=== PATIENT | female | born 1945 | race Caucasian/White ===

== ENCOUNTER → 2019-04-14 12:38 | Outpatient (CLI) | payer MEDICARE, BC | END | disposition home or self-care (01) | LOC: D.RT 12:38 | PROVIDERS: ATTEND Internal Medicine Cardiovascular Disease | DX: C34.90 Malignant neoplasm of unspecified part of unspecified bronchus or lung (principal) ==

== ENCOUNTER → 2019-04-16 11:08 | Outpatient (CLI) | payer MEDICARE, BC ==
[2019-04-16 11:48] LABS: HEMATOCRIT 36.5 % (36.0-48.0); HEMOGLOBIN 12.6 g/dL (12-16); MCH 30.1 pg (26.0-34.0); MCHC 34.5 g/dL (31.0-37.0); MCV 87.3 fL (80.0-100.0); MEAN PLATELET VOLUME 8.8 fL (7.4-10.4); RBC 4.18 10x6/uL (4.00-5.40); RDW 13.4 % (11.5-14.5); WBC 6.9 10x3/uL (4.8-10.8)
[2019-04-16 12:04] LABS: ANION GAP 11.6 mmol/L (8-16); BILIRUBIN - TOTAL 0.46 mg/dL (0.2-1.3); CALCIUM 9.6 mg/dL (8.5-10.1); CARBON DIOXIDE 30.9 mmol/L (21.0-32.0); CREATININE - SERUM 2.3 mg/dL (0.6-1.3); POTASSIUM - SERUM 3.5 mmol/L (3.5-5.1); PROTEIN - SERUM 7.8 g/dL (6.4-8.2)
== END | disposition home or self-care (01) ==
LOC: D.US 11:08
PROVIDERS: ATTEND Internal Medicine Cardiovascular Disease
DX: C34.90 Malignant neoplasm of unspecified part of unspecified bronchus or lung (principal); I65.23 Occlusion and stenosis of bilateral carotid arteries; I10 Essential (primary) hypertension

== ENCOUNTER 2019-05-26 07:16 | Day surgery (SDC) | payer MEDICARE, BC ==
[~2019-05-26] VITALS: Ht 162.6 cm; Wt 65.3 kg
[2019-05-26 07:43] LABS: APPEARANCE CLEAR (CLEAR); COLOR YELLOW (YELLOW)
[2019-05-26 07:44] LABS: BILIRUBIN NEGATIVE (NEGATIVE); GLUCOSE NEGATIVE (NEGATIVE); KETONE NEGATIVE (NEGATIVE); NITRITE NEGATIVE (NEGATIVE); PROTEIN NEGATIVE (NEGATIVE); UROBILINOGEN NORMAL (NORMAL)
[2019-05-26 07:46] LABS: HEMATOCRIT 28.5 % (36.0-48.0); HEMOGLOBIN 9.2 g/dL (12-16); MCH 30.4 pg (26.0-34.0); MCHC 32.3 g/dL (31.0-37.0); MCV 94.1 fL (80.0-100.0); MEAN PLATELET VOLUME 8.7 fL (7.4-10.4); RBC 3.03 10x6/uL (4.00-5.40); RDW 15.1 % (11.5-14.5); WBC 4.3 10x3/uL (4.8-10.8)
[2019-05-26 07:51] LABS: ANION GAP 13.4 mmol/L (8-16); CREATININE - SERUM 1.2 mg/dL (0.6-1.3); POTASSIUM - SERUM 4.4 mmol/L (3.5-5.1)
[2019-05-26 07:52] LABS: INR 1.06 (0.85-1.17); PROTIME 13.3 SECONDS (11.6-15.0)
[2019-05-26] MEDS ORDERED: COUMADIN5 MG PO (09:23)
[2019-05-26] MEDS ORDERED: COREG 3.1253.125 MG PO (09:24)
[2019-05-26] MEDS ORDERED: HCTZ25 MG (09:24)
[2019-05-26] MEDS ORDERED: ONDANSETRON ODT8 MG PO (09:25)
[2019-05-26] MEDS ORDERED: PHENERGAN25 M1 PO (09:25)
[2019-05-26] MEDS ORDERED: PROPAFENONE HC150 MG PO (09:25)
[2019-05-26 09:28] VITALS: BP 113/71; Ht 162.6 cm; Wt 65.3 kg
--- NOTE | 2019-05-26 15:10 | NUR ---
1430 PT ON RA O2 SATS 94-95% 1445 IV REMOVED AND INSTRUCTIONS GIVEN. 1500 PT DISCHARGED HOME
--- NOTE | 2019-06-07 10:34 | OP ---
PATIENT NAME: ALESHIA MADRIGAL MEDICAL RECORD: [id number] :47 LOCATION:D.OPS ADMISSION DATE: SURGEON: CHELSEA NEWTON MD DATE OF OPERATION: 05/26/2019 SURGEON: Chelsea Newton MD ANESTHESIA: General, Dr. Golden. OPERATION PERFORMED: Placement of [place] 9.6. PREOPERATIVE DIAGNOSIS: Carcinoma of the lung, receiving neoadjuvant chemotherapy. POSTOPERATIVE DIAGNOSIS: Carcinoma of the lung, receiving neoadjuvant chemotherapy. INDICATION FOR OPERATION: Venous access. FINDINGS AT OPERATION: The venogram demonstrated the catheter in good position at the cavoatrial junction. ESTIMATED BLOOD LOSS: Less than 5 cc. DESCRIPTION OF PROCEDURE: After informed consent, adequate preoperative medication evaluation, the patient was brought to the operating room, placed on the table in the supine position. After induction of general anesthesia and application of appropriate monitoring devices, left chest was prepped and draped in sterile field, utilizing Betadine scrub, alcohol, and Betadine solution. Betadine-impregnated drape was also used. The patient was placed in the Trendelenburg and the left subclavian vein was accessed. An introducer was placed and the catheter placed through the introducer. The catheter was then filled with contrast. It was manipulated into position. A venogram demonstrated good position. The lead was secured with a rubber shod clamp. A counter incision was made over the left anterior chest. Incision was made and dissection carried down the fascia. A pocket was formed. The catheter was then placed through the subcutaneous tunnel to the counter incision. The device was then connected to the catheter, aspirated and flushed appropriately. The port was then sutured to the fascia. The port was then again irrigated, checked with fluoroscopy. Catheter was in good position. The port was then flushed with 3000 units of heparin. The wounds were irrigated. The superior stab wound was closed with 3-0 Monocryl. The instrument count and sponge counts were correct times 2. The counter incision was closed utilizing 3-0 Vicryl on deep subcutaneous tissue, 5-0 subcuticular Monocryl on the skin. Sterile dressings were applied. The patient tolerated the procedure well and was transferred to postanesthesia recovery in satisfactory condition. TRANSINT:[id number] Voice Confirmation ID: [id number] DOCUMENT ID: [id number] OPERATIVE REPORT [id number] BROWN,CHELSEA FLORES MD at 1034 CC: [id number] DICTATION DATE: 05/26/19 1234 SUPERVISOR HOME ENERGY CONSULTANT: 05/26/19 1247 [facility] 05/26/19 [place] [id number] [place] [address]
== END 2019-05-26 15:00 | disposition home or self-care (01) ==
LOC: D.OPS 07:16
PROVIDERS: ATTEND Internal Medicine Cardiovascular Disease
DX: C34.90 Malignant neoplasm of unspecified part of unspecified bronchus or lung (principal)

== ENCOUNTER → 2019-07-15 09:55 | Outpatient (CLI) | payer MEDICARE, BC ==
[2019-05-26 09:28] VITALS: BMI 24.7
[~2019-07-15 09:55] MED LIST: COREG 3.1253.125 MG PO; COUMADIN5 MG PO; HCTZ25 MG; ONDANSETRON ODT8 MG PO; PHENERGAN25 M1 PO; PROPAFENONE HC150 MG PO
== END | disposition home or self-care (01) ==
LOC: D.RT 09:55
PROVIDERS: ATTEND Internal Medicine Cardiovascular Disease
DX: C34.11 Malignant neoplasm of upper lobe, right bronchus or lung (principal)

== ENCOUNTER 2019-07-22 07:54 | Inpatient (IN) | payer MEDICARE, BC ==
[~2019-07-22] VITALS: Ht 162.6 cm; Wt 70.9 kg
--- NOTE | ~2019-07-22 | HEMODYNAMI ---
PATIENT:ALESHIA MADRIGAL MEDICAL RECORD: [id number] : 47 LOCATION:[place] [address] ADMISSION DATE: 07/26/19 Generatedon:08/18/201914:36 Patient name: ALESHIA MADRIGAL Patient #: [id number] SSN: : 1945 Date of study: 08/18/2019 Page: Of Hemodynamic Procedure Report Patient Data Patient Demographics Procedure consent was obtained First Name: ALESHIA Gender: Female Last Name: ROHAN : 1945 [facility] Initial: SATHISH Age: 74 year(s) Patient #: [id number] Race: Unknown Additional ID: [id number] Contact details Address: [address] [place] [address] State: [place] City: [place] Zip code: [address] Admission Admission Data Admission Date: 07/26/2019 Admission Time: 5:00 Room #: [facility] Height (in.): 64 BSA: 1.87 (m2) Height (cm.): 162.56 BMI: 31.07 (kg/m2) Weight (lbs.): 181 Weight (kg.): 82.1 Procedure Procedure Types Cath Procedure Peripheral Cath Diagnostic Procedure Casino Banker Peripheral Procedures Miscellaneous Chest Tube Placement Procedure Description Procedure Date Procedure Date: 08/18/2019 Procedure Start Time: 14:20 Procedure Staff Name Function Erinn Vora RT Palliative Senior Np Misael Boyce RT Scrub Hilton Sanchez MD Performing Physician hSanta Wei RN Nurse Procedure Data Cath Procedure Fluoroscopy Diagnostic fluoroscopy Total fluoroscopy Time: 0.4 time: 0.4 min min Diagnostic fluoroscopy Total fluoroscopy dose: 2 dose: 2 mGy mGy Hemodynamics Rest BSA: 1.87 (m2) O2 Consumption: Estimated: 254.32 (ml/min) O2 Consumption indexed : Estimated:136 (ml/min/m) Pre Cath Intra NCS Post Cath Procedure Log Time Note 13:11:00 Patient Height : 64 inches 13:11:05 Patient Weight : 181 lbs 13:11:34 Use device set IR Diagnostic 13:11:41 Tegaderm 4 x 4 ([id number]) opened to sterile field. 13:11:42 Sterile Angiographic Pack opened to sterile field. 13:11:44 Bag Decanter (2001S) opened to sterile field. 13:57:37 Time tracking: Regular hours (M-F 7:00 - 5:00) 13:57:45 Patient received from CVICU to IR On ventilator. Tansferred to table in Supine position. 14:17:36 Signed procedure consent form obtained from verbally. 14:17:44 H&P Date Dictated: 08/18/2019 Within 30 days and on chart.. 14:17:51 Family unavailable. 14:18:45 Right chest area was prepped with betadine and draped in sterile fashio n 14:18:57 - 14:18:59 Physician arrived 14:19:01 --------ALL STOP TIME OUT------ 14:19:02 Final Timeout: patient, procedure, and site verified with staff and physician. All members of the team are in agreement. 14:20:04 Fire Safety Assessment: B--The operative or invasive procedure is being performed above the xiphoid process or in the oropharynx., C--Open oxygen or nitrous oxide is being used. 14:20:35 Procedure started. 14:20:36 Full Disclosure recording started 14:20:42 Local anesthetic to Chest area with Lidocaine 1% by Hilton Sanchez MD.INITIAL ACCESS ONLY 14:23:32 Abscession 14FR drainage catheter ([id number]) opened to sterile field. 14:23:59 ROADRUNNER .035 145 glide wire ([id number]) opened to sterile field. 14:24:17 STOPCOCK 3-Way Large Bore ([id number]) opened to sterile field. 14:30:02 Procedure ended.(Physican Out) 14:30:19 Fluoroscopy time 00.40 minutes. 14:30:31 Fluoroscopy dose: 2 mGy 14:30:31 Flurop Dose total: 2 14:31:26 Patient transfered to CVICU with Bed. 14:31:49 Full Disclosure recording stopped Device Usage Item Name Manufacture Quantity Catalog Hospital Part Current Minima l Lot# / Number Charge Number Stock Stock Serial# Code Tegaderm 4 x 3M 1 [id number] [id number] [id number] 5 4 (1626W) Sterile Cardinal 1 [id number] 5 Angiographic Health Pack Bag Decanter Microtek 1 2001S 206999 12178 [id number] 5 (2001S) [employer] Inc[employer] Abscession Angiodynamics 1 [id number] 067672 325454 775599 5 14FR drainage catheter ([id number]) [facility] 1 [id number] 517151 074043 5 .035 145 glide wire (C71789) [facility] 1 [id number] 1822 894158 5 [id number] 3-Way Large Bore ([id number]) Signature Audit [place] Stage Time Signature Unsigned Intra-Procedure 08/18/2019 Erinn Douglas [facility] RT 2:31:41 PM RT(R) (R) (CV) 08/18/2019 2:35:39 PM Intra-Procedure 08/18/2019 Erinn Vora 2:36:47 PM RT(R) [facility] [address] [place] [address]
[2019-07-22] MEDS ORDERED: CLARITIN 10 MG10 MG PO (08:31)
[2019-07-22] MEDS ORDERED: IMODIUM2 MG PO (08:32)
[2019-07-22] MEDS ORDERED: CYCLOBENZAPRINE5 MG PO (08:33)
[2019-07-22] MEDS ORDERED: ULTRAM50 MG PO (08:34)
[2019-07-22] MEDS ORDERED: EMLA CREAM 30 G30 G1 TOPICAL (08:35)
[2019-07-22 09:43] LABS: HEMATOCRIT 37.3 % (36.0-48.0); HEMOGLOBIN 12.1 g/dL (12-16); MCH 32.8 pg (26.0-34.0); MCHC 32.4 g/dL (31.0-37.0); MCV 101.1 fL (80.0-100.0); MEAN PLATELET VOLUME 8.5 fL (7.4-10.4); RBC 3.69 10x6/uL (4.00-5.40); WBC 4.3 10x3/uL (4.8-10.8)
[2019-07-22 09:55] LABS: APTT 31.6 SECONDS (22.8-39.4); INR 1.11 (0.85-1.17); PROTIME 13.8 SECONDS (11.6-15.0)
[2019-07-22 09:58] LABS: ALBUMIN 3.8 g/dL (3.4-5.0); BILIRUBIN - TOTAL 0.37 mg/dL (0.2-1.3); CALCIUM 9.6 mg/dL (8.5-10.1); CARBON DIOXIDE 25.4 mmol/L (21.0-32.0); CREATININE - SERUM 1.1 mg/dL (0.6-1.3); POTASSIUM - SERUM 4.4 mmol/L (3.5-5.1); PROTEIN - SERUM 7.4 g/dL (6.4-8.2)
[2019-07-22 10:19] LABS: APPEARANCE CLEAR (CLEAR); BILIRUBIN NEGATIVE (NEGATIVE); COLOR YELLOW (YELLOW); GLUCOSE NEGATIVE (NEGATIVE); KETONE NEGATIVE (NEGATIVE); NITRITE NEGATIVE (NEGATIVE); PROTEIN NEGATIVE (NEGATIVE); SPECIFIC GRAVITY 1.015 (1.005-1.020); UROBILINOGEN NORMAL (NORMAL)
[2019-07-26] VITALS (52 sets, daily range): BP systolic 114–190; BP diastolic 53–555; BMI 24.1; BMI 25.3
--- NOTE | 2019-07-26 16:15 | NUR ---
1158 PT RECIEVED TO ROOM ALERT, CONFUSED, REOREINTED NEEDED SEE IV FLOWSHEET AND ADMISSION ASSESSMENT RYTHMOL GIVEN PER DR NEWTON SPOKE WITH DR STILES ABOUT CARDIZIEM STATED TO CONTINUE THROUGH NIGHT, DR NEWTON AWARE AND IN AGREEMENT REPOSITIONED HOURLY AND ENCOURAGED TO USE IS, PULLS 500-750 FAMILY HERE FOR VISITATION, DENIES ALL QUESTIONS
--- NOTE | 2019-07-26 19:00 | NUR ---
REC'D TO CARE, PT AWAKENS TO NAME, ORIENTED. DR. CALLES IN TO SEE PT. IVF INFUSING TO R DLSC, DSG C/D/I, WILL TITRATE GTTS PER MD ORDERS - SEE FLOWSHEET. R CT X 2 NOTED, TO 20CM SXN, NO AIR LEAK NOTED. CRITICORE SOURAV PATENT. 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 WILL CONT Q1H TURN/COUGH/DB PER MD ORDERS AND I.S. ALARMS ON, C/L IN REACH.
--- NOTE | 2019-07-26 20:30 | NUR ---
FAMILY AT BS VISITING, NOTED DECREASE IN POX TO 85%, R.T. AT BS, FIO2 TIRATED, PT ENCOURAGED TO DB AND COUGH. POX IMPROVING TO 90%, THEN 93% BY 2049. WILL CONT TO TITATE FIO2 PER MD ORDERS.
--- NOTE | 2019-07-26 21:25 | NUR ---
STATUS REPORT CALLED TO DR. NEWTON, NOTIFIED OF TELMA AND NIBP DIFFERENCE. ORDER TO TITRATE NITRO GTT USING NIBP REC'D.
--- NOTE | 2019-07-26 23:05 | NUR ---
REASSESSMENT PER FLOWSHEET, NO ACUTE CHANGES. ABGS WNL. PT AWAKENS EASILY, GOOD EFFORT ON I.S. CONT CURRENT POC. ALARMS ON AND C/L IN REACH.
[2019-07-27] VITALS (55 sets, daily range): BP systolic 97–159; BP diastolic 52–90; BMI 25.1
--- NOTE | 2019-07-27 01:00 | NUR ---
PT AWAKENS EASILY. ORAL CARE PROVIDED. PT GIVEN FEW ICE CHIPS PER REQUEST. GOOD EFFORT ON I.S./COUGH. C/L IN REACH.
--- NOTE | 2019-07-27 03:11 | NUR ---
REASSESSMENT PER FLOWSHEET. NO ACUTE CHANGES. PT DOING I.S. INDEPENDENTLY, GOOD COUGH NOTED. VSS.
--- NOTE | 2019-07-27 06:15 | NUR ---
COMPLETE BATH AND LINEN CHANGE DONE. PT ASSISTED WITH BATHING AND TURNING.
--- NOTE | 2019-07-27 06:41 | NUR ---
PT C/O ITCHING AFTER BATH AT ABD.. SKIN RINSED WITH CLEAN WASH CLOTH AND DRIED. PT REPORTED RELIEF WITHIN A FEW MINUTES.
[2019-07-27 06:47] LABS: HEMATOCRIT 31.8 % (36.0-48.0); HEMOGLOBIN 10.1 g/dL (12-16); MCH 32.2 pg (26.0-34.0); MCHC 31.8 g/dL (31.0-37.0); MCV 101.3 fL (80.0-100.0); MEAN PLATELET VOLUME 8.4 fL (7.4-10.4); RBC 3.14 10x6/uL (4.00-5.40); RDW 22.6 % (11.5-14.5); WBC 10.3 10x3/uL (4.8-10.8)
--- NOTE | 2019-07-27 07:00 | NUR ---
REPORT RECIEVED FROM THE OFF GOING RN. SEE ASSESSMENT IN THE PTS FLOW SHEET. PT SITTING IN BED. VSS. CVL NOTED. SEE IV GTT IN FLOW SHEET. CT X2 TO R LATERAL SIDE. CT TO 20 CM OF SUCTION. NO AIR LEAK NOTED. FC NOTED WITH CLEAR, YELLOW URINE. LEFT RADIAL TELMA NOTED. WAS NOTIFIED FROM PM NURSE TO USE NIPB PRESSURE. PT INSTRUCTED TO USE IS 10X'S/H. PT PULLS ABOUT 500 ON HER IS. WEAK COUGH NOTED. CALL LIGHT IN REACH. WILL CONT POC.
[2019-07-27 07:09] LABS: ANION GAP 12.7 mmol/L (8-16); BILIRUBIN - TOTAL 0.52 mg/dL (0.2-1.3); CALCIUM 8.8 mg/dL (8.5-10.1); CARBON DIOXIDE 26.5 mmol/L (21.0-32.0); CREATININE - SERUM 0.9 mg/dL (0.6-1.3); POTASSIUM - SERUM 4.2 mmol/L (3.5-5.1); PROTEIN - SERUM 6.6 g/dL (6.4-8.2)
--- NOTE | 2019-07-27 09:49 | NUR ---
PHYSICAL THEARPY CONSULTED PER DR NEWTON. PT ASSISTED OOB AND INTO THE BEDSIDE CHAIR PER DR NEWTON. PT TOLERATED WELL. VSS. WILLC ONT POC.
--- NOTE | 2019-07-27 10:35 | NUR ---
DR NEWTON AT THE PTS BEDSIDE. JACK HOLLIS, JACK MONTOYA AND JACK DANIEL.
--- NOTE | 2019-07-27 12:00 | NUR ---
RECEIVED BEDSIDE REPORT ON PATIENT AND ASSUMED CARE. PATIENT SITTING UP IN BEDSIDE CHAIR, VSS. LEFT RADIAL ART LINE WITH GOOD WAVEFORM, RIGHT SUBCLAVIAN CVL INFUSING WITHOUT DIFFICULTY. ALERT AND ORIENTED X 4.
--- NOTE | 2019-07-27 12:46 | NUR ---
PATIENT GIVEN LUNCH TRAY.
--- NOTE | 2019-07-27 13:57 | NUR ---
ART LINE LEFT RADIAL DISCONTINUED PER ORDER. DIRECT PRESSURE X 4 MINUTES WITH 2X2 AND TEGADERM DRESSING. NO HEMATOMA OR BLEEDING NOTED. IV 20 TO LEFT FA D/C'D DRESSING C/D/I.
--- NOTE | 2019-07-27 15:00 | NUR ---
REASSESSMENT COMPLETE DONE SEE FLOW SHEET.
--- NOTE | 2019-07-27 16:52 | NUR ---
DR NEWTON INFORMED OF PT BP. BP UNDER 160 OK. WILL COTNINUE TO MONITOR.
--- NOTE | 2019-07-27 17:14 | MORECARE ---
CASE MANAGEMENT DISCHARGE SUMMARY PATIENT: ALESHIA MADRIGAL UNIT: [id number] ADM DATE: 07/26/19 AGE: 74 : 46 SEX: F ROOM/BED: [facility] AUTHOR: JEFFERY BROWNE PHYSICIAN: REFERRING PHYSICIAN: CHELSEA NEWTON MD DATE OF SERVICE: 07/27/19 Discharge Plan Patient Name: ALESHIA MADRIGAL [facility] [facility] 1945 Planned Disposition: Home Anticipated Discharge Date: Discharge Date: Expected LOS: Initial Reviewer: [email or web address] Initial Review Date: 07/26/2019 Generated: 07/27/19 6:14 pm Patient Name: ALESHIA MADRIGAL Page 19809 at 1714 All edits/amendments must be made on the electronic document DICTATION DATE: 07/27/191713 FAMILY CONSUMER SCIENTIST: KEVIN 07/27/191713 RPT#: [id number] DC DATE: STATUS: ADM IN [facility] [address] [place] [address] END OF REPORT
--- NOTE | 2019-07-27 19:15 | NUR ---
REC'D TO CARE, BEDSIDE REPORT DONE. PT ASSISTED BACK TO BED, GAIT STEADY. R CT X 2 NOTED TO 20CM SXN, DSG C/D/I. CRITICORE SOURAV PATENT. IVFS INFUSING TO R DLSC, DSG C/D/I. 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 WILL CONT TURN/COUGH/DB AND I.S. PER ORDERS - PT VERBALIZES UNDERSTANDING. VSS. C/L IN REACH. FRESH WATER PROVIDED.
--- NOTE | 2019-07-27 21:58 | NUR ---
ADMIN PO MEDS PER ORDERS. PT UP IN BED, SPLINTING CHEST WITH COUGH.
--- NOTE | 2019-07-27 23:15 | NUR ---
REASSESSMENT PER FLOWSHEET, NO ACUTE CHANGES. PT AWAKENS EASILY, NO SIGN OF DISTRESS. GOOD EFFORT ON I.S. AND COUGH. VSS. DENIES NEEDS.
--- NOTE | 2019-07-27 23:40 | NUR ---
PT HR 174, UCAF. PT AWAKENS EASILY, REPORTS HX OF FIB AT HIGH RATES. B/P 97/58, OTHERWISE ASYMPTOMATIC. 2345 - DR. SMITH NOTIFIED OF HR AND B/P. NEW ORDERS REC'D. SEE EMAR.
[2019-07-28] VITALS (40 sets, daily range): BP systolic 92–134; BP diastolic 41–86
--- NOTE | 2019-07-28 01:03 | NUR ---
HR STILL 150-170S. DR. SHRESTHA NOTIFIED - NEW ORDERS REC'D, ORDERS OK'D WITH DR. NEWTON.
--- NOTE | 2019-07-28 02:40 | NUR ---
CM - ST AT 102 WITH OCC PVC NOTED.
--- NOTE | 2019-07-28 03:20 | NUR ---
REASSESSMENT PER FLOWSHEET. PT AWAKENS EASILY, DENIES PAIN OR SOB. CM ST 101 WITH OCC PVC NOTED. GOOD COUGH NOTED. FRESH WATER PROVIDED. C/L IN REACH.
--- NOTE | 2019-07-28 04:00 | NUR ---
PCXR DONE. CM - ST WITH OCC PAC NOTED.
[2019-07-28 06:08] LABS: ALBUMIN 2.8 g/dL (3.4-5.0); ANION GAP 12.4 mmol/L (8-16); BILIRUBIN - TOTAL 0.45 mg/dL (0.2-1.3); CALCIUM 8.9 mg/dL (8.5-10.1); CREATININE - SERUM 0.9 mg/dL (0.6-1.3); MAGNESIUM - SERUM 1.6 mg/dL (1.8-2.4); PHOSPHOROUS 2.5 mg/dL (2.5-4.9); POTASSIUM - SERUM 4.4 mmol/L (3.5-5.1); PROTEIN - SERUM 6.6 g/dL (6.4-8.2)
[2019-07-28 06:14] LABS: BASOPHILS 0 % (0-2); EOSINOPHILS 0 % (0-7); HEMATOCRIT 31.9 % (36.0-48.0); HEMOGLOBIN 10.2 g/dL (12-16); IMMATURE GRANULOCYTES 0.3 % (0-5); LYMPHOCYTES 5.9 % (15-50); MCV 103.2 fL (80.0-100.0); MEAN PLATELET VOLUME 8.4 fL (7.4-10.4); MONOCYTES 10.6 % (2-11); NEUTROPHILS 83.2 % (40-80); PLATELET COUNT 229 10x3/uL (130-400); RBC 3.09 10x6/uL (4.00-5.40); WBC 11.1 10x3/uL (4.8-10.8)
--- NOTE | 2019-07-28 10:48 | NUR ---
CT TO WATER SEAL PER DR. NEWTON.
--- NOTE | 2019-07-28 12:26 | NUR ---
0700 REPORT RECEIVED CARE ASSUMED ASSESSMENT DONE SEE FLOW SHEET VSS 0900 MEDS GIVEN PER OCT. VSS. NO DIFFICULTY SWALLOWING NOTED. 1100 REASSESSMENT DONE SEE FLOW SHEET VSS 1200 DR NEWTON NURSE AT BEDSIDE. CARDIZEM TURNED DOWN TO 5. DC AT 1600. 1230 CT DRESSING AND R UPPER BACK DRESSING CHANGED PER DR NEWTON. MINIMAL TAPE USED. STERILE TECHNIQUE. LAYERED TO OCCLUSSIVE DRESSING. PT VERBALIZES THIS IS MUCH LESS ITCHY. BENADRYL APPLIED PT VERBALIZES THAT THIS IS MUCH BETTER ALONG WITH MUCH LESS ITCHY.
--- NOTE | 2019-07-28 15:50 | NUR ---
DR NEWTON INFORMED OF PT STATUS. PT CHARLIE DOWN TO 40S. HEMO STABLE. WILL CONTINUE TO MONITOR.
--- NOTE | 2019-07-28 16:19 | MORECARE ---
CASE MANAGEMENT DISCHARGE SUMMARY PATIENT: ALESHIA MADRIGAL UNIT: [id number] ADM DATE: 07/26/19 AGE: 74 : 46 SEX: F [facility] AUTHOR: HOLLIE,DOC PHYSICIAN: REFERRING PHYSICIAN: CHELSEA NEWTON MD DATE OF SERVICE: 07/28/19 Discharge Plan Patient Name: ALSEHIA MADRIGAL Facility: [facility]:[place] : 1945 Planned Disposition: Home Anticipated Discharge Date: Discharge Date: Expected LOS: Initial Reviewer: [email or web address] Initial Review Date: 07/26/2019 Generated: 07/28/19 5:18 pm Comments DCP- Discharge Planning Updated by [email or web address]: Bety Bell on 07/28/19 3:[address] Patient Name: ALESHIA MADIRGAL Admission Status: Elective Accout number: [id number] Admission Date: 07-26-2019 : 1945 Admission Diagnosis:MALIGNANT NEOPLASM OF UPPER LOBE, RIGHT BRONCHUS OR BUD Attending: CHELSEA NEWTON Current LOS: 2 Anticipated DC Date: Planned Disposition: Home Primary Insurance: MEDICARE A & B Discharge Planning Comments: CM met with patient to complete initial dc planning assessment. CM educated patient on the CM role and verbal consent given by patient to complete assessment. Patient lives at home alone where she is independent with her care. At discharge patient plans to return home and feels this is a safe discharge. CM discussed availability of home health, rehab services, and medical equipment. Her family will drive her home upon discharge. Patient may need walk test if still requiring 02 @ discharge. Patient denied known discharge needs at this time. CM will continue to follow and will assist as needed with dc plans/needs. Graduate Advisor: Bety Bell DCPIA - Discharge Planning Initial Assessment Updated by [email or web address]: Bety Bell on 07/28/19 4:15 pm * Is the patient Alert and Oriented? Yes * How many steps to enter\exit or inside your home? * PCP [facility] - @ [facility] * Pharmacy [facility] * Preadmission Environment Home Alone * ADLs Independent * Equipment None * List name and contact numbers for known caregivers / representatives who currently or will assist patient after discharge: NYLA GONZALEZ - SON - [phone] * Verbal permission to speak to the caregivers and representatives has been obtained from the patient. Yes * Community resources currently utilized None * Additional services required to return to the preadmission environment? No * Can the patient safely return to the preadmission environment? Yes * Has this patient been hospitalized within the prior 30 days at any hospital? No Last DP export: 07/27/19 4:15 Patient Name: ALESHIA MADRIGAL Page 73989 at 1619 All edits/amendments must be made on the electronic document DICTATION DATE: 07/28/191617 BARKING MACHINE FEEDER: KEVIN 07/28/191617 RPT#: [id number] DC DATE: STATUS: ADM IN [facility] [address] [place] [address] END OF REPORT
--- NOTE | 2019-07-28 16:26 | MORECARE ---
CASE MANAGEMENT DISCHARGE SUMMARY PATIENT: ALESHIA MADRIGAL UNIT: [id number] ADM DATE: 07/26/19 AGE: 74 : 47 SEX: F [facility] AUTHOR: HOLLIE,DOC PHYSICIAN: REFERRING PHYSICIAN: CHELSEA NEWTON MD DATE OF SERVICE: 07/28/19 Discharge Plan Patient Name: ALESHIA MADRIGAL Facility: [facility]:[place] : 1945 Planned Disposition: Home Anticipated Discharge Date: Discharge Date: Expected LOS: Initial Reviewer: [email or web address] Initial Review Date: 07/26/2019 Generated: 07/28/19 5:26 pm Comments DCP- Discharge Planning Updated by [email or web address]: Bety Bell on 07/28/19 3:[address] Late Entry 07/27/19 Patient Name: ALESHIA MADRIGAL Admission Status: Elective Accout number: [id number] Admission Date: 07-26-2019 : 1945 Admission Diagnosis:MALIGNANT NEOPLASM OF UPPER LOBE, RIGHT BRONCHUS OR BUD Attending: CHELSEA NEWTON Current LOS: 2 Anticipated DC Date: Planned Disposition: Home Primary Insurance: MEDICARE A & B Discharge Planning Comments: CM met with patient to complete initial dc planning assessment. CM educated patient on the CM role and verbal consent given by patient to complete assessment. Patient lives at home alone where she is independent with her care. At discharge patient plans to return home and feels this is a safe discharge. CM discussed availability of home health, rehab services, and medical equipment. Her family will drive her home upon discharge. Patient may need walk test if still requiring 02 @ discharge. Patient denied known discharge needs at this time. CM will continue to follow and will assist as needed with dc plans/needs. Loan Examiner: Bety Bell DCPIA - Discharge Planning Initial Assessment Updated by [email or web address]: Bety Bell on 07/28/19 4:15 pm * Is the patient Alert and Oriented? Yes * How many steps to enter\exit or inside your home? * PCP [facility] - @ [facility] * Pharmacy [facility] * Preadmission Environment Home Alone * ADLs Independent * Equipment None * List name and contact numbers for known caregivers / representatives who currently or will assist patient after discharge: NYLA PUENTES - [phone] * Verbal permission to speak to the caregivers and representatives has been obtained from the patient. Yes * Community resources currently utilized None * Additional services required to return to the preadmission environment? No * Can the patient safely return to the preadmission environment? Yes * Has this patient been hospitalized within the prior 30 days at any hospital? No Last DP export: 07/28/19 3:18 Patient Name: ALESHIA MADRIGAL Page 67373 at 1626 All edits/amendments must be made on the electronic document DICTATION DATE: 07/28/191625 GUIDE RAIL CLEANER: KEVIN 07/28/191625 RPT#: [id number] DC DATE: STATUS: ADM IN [facility] [address] [place] [address] END OF REPORT
--- NOTE | 2019-07-28 18:38 | NUR ---
CONTINUE CARDIZEM DRIP THROUGH NIGHT WILL DC IN AM.
--- NOTE | 2019-07-28 20:30 | NUR ---
OOB TO BEDSIDE COMMODE, VOIDED THEN TO CHAIR AT BEDSIDE. POSITIONED WITH PILLOWS FOR COMFORT.
--- NOTE | 2019-07-28 22:00 | NUR ---
ASSISTESD BACK TO BED PER REQUEST. HOB ELEAVTED. DENIES FURTHER NEEDS
[2019-07-29] VITALS (48 sets, daily range): BP systolic 85–142; BP diastolic 50–91
--- NOTE | 2019-07-29 00:10 | NUR ---
SOB. O2 SAT 88%. REPOSTIONED, HOB ELEVATED. O2 SATS IMPROVED. PT REPORTS BREATHING IS IMPROVED.
--- NOTE | 2019-07-29 01:30 | NUR ---
SOB. ANXIOUS. REPOSITIONED. CT IN PLACE. NO LEAKS NOTED. O2 SAT IMPROVED.
--- NOTE | 2019-07-29 03:00 | NUR ---
PT C/O SOB AND STATING THAT SHE CANT BREATH. REPOSITIONING NOT EFFECTIVE. O2 INCREASED. O2 SAT NOT RESPONDING TO INTERVENTIONS. DR CHRISTI CORLEY.
--- NOTE | 2019-07-29 03:06 | NUR ---
SPOKE WITH DR CALLES VIA PHONE. ORDERS RECIEVED FOR 40MG LASIX AND TO START BIPAP.
--- NOTE | 2019-07-29 03:20 | NUR ---
HR INCREASES TO SINUS TACH AT 125, MAINTAINS FOR 7 MINUTES THEN CONVERTED TO UNCONTROLLED A FIB. HR 135-160.
--- NOTE | 2019-07-29 03:35 | NUR ---
CALLED DR NEWTON. PHONE TO VOICEMAL.
--- NOTE | 2019-07-29 03:39 | NUR ---
PCXR COMPLETED PER REQUEST. SENT OUT TO GET READ NOW.
--- NOTE | 2019-07-29 04:20 | NUR ---
SPOKE WITH DR STILES AFTER TALKING TO DR SMITH. ORDER RECIEVED TO INCREASE CARDIZEM TO 10 MG AFTER GIVING 10MG BOLUS.
--- NOTE | 2019-07-29 04:50 | NUR ---
PT RESTING QUIETLY. REMAINS ON BIPAP. AFTER CARDIZEM BOLUS AND RATE INCREASED TO 10 MG/HR HR IS DECREASED TO 130'S. HAVING FREQUENT ESCAPE BEATS BUT STILL IN UNCONTROLLED AFIB.
--- NOTE | 2019-07-29 06:30 | NUR ---
QUIETLY RESTING. NO CHANGES IN ASSESS.
--- NOTE | 2019-07-29 07:00 | NUR ---
REPORT RECEIVED CARE ASSUMED ASSESSMENT DONE SEE FLOW SHEET.
[2019-07-29 07:08] LABS: MCH 32.5 pg (26.0-34.0); MCHC 31.3 g/dL (31.0-37.0); MCV 103.9 fL (80.0-100.0); MEAN PLATELET VOLUME 8.6 fL (7.4-10.4); RBC 3.08 10x6/uL (4.00-5.40); RDW 21.3 % (11.5-14.5); WBC 13.6 10x3/uL (4.8-10.8)
[2019-07-29 07:15] LABS: INR 1.05 (0.85-1.17); PROTIME 13.2 SECONDS (11.6-15.0)
[2019-07-29 07:24] LABS: ALBUMIN 2.6 g/dL (3.4-5.0); ANION GAP 9.1 mmol/L (8-16); BILIRUBIN - TOTAL 0.39 mg/dL (0.2-1.3); CALCIUM 8.8 mg/dL (8.5-10.1); CARBON DIOXIDE 32.2 mmol/L (21.0-32.0); POTASSIUM - SERUM 4.3 mmol/L (3.5-5.1); PROTEIN - SERUM 6.7 g/dL (6.4-8.2)
--- NOTE | 2019-07-29 07:30 | NUR ---
PT INCREASINGLY SOB AND RESTLESS. DR NEWTON INFORMED OF PT STATUS. ORDERS RECEIVED.
--- NOTE | 2019-07-29 09:00 | NUR ---
PT INCREASINGLY SOB. CONTINUING TO MONITOR.
--- NOTE | 2019-07-29 09:53 | NUR ---
Nutrition Follow-up: On bipap this AM. Diet: Regular PO intake: 10-25% Wt: 147# (146.6# on 07/28) No BMs recorded Labs noted: Glu 131, Mg 1.6, Alb 2.8 Meds noted: Solumedrol, Coumadin -Continue current diet as tolerated. -Offer nutrition supplements. -May consider appetite stimulant and/or Procalamine. -RD following.
--- NOTE | 2019-07-29 11:02 | NUR ---
REASSESSMENT DONE SEE FLOW SHEET. BENJAMIN INSERTED. IMMEDIATE URINE RETURN OF 700ML. HR 90-120. HEMO STABLE WILL CONTINUE TO MONITOR.
--- NOTE | 2019-07-29 13:00 | NUR ---
DR NEWTON INFORMED OF PT STATUS NO NEW ORDERS RECEIVED.
--- NOTE | 2019-07-29 18:24 | NUR ---
[address] THAPA AT BEDSIDE. RT AT BEDSIDE. 1700 IO COLLECTED. FAMILY AT BEDSIDE.
--- NOTE | 2019-07-29 19:30 | NUR ---
REPORT RECIEVED. CARE ASSUMED. PT IS RESTING QUIETLY WITH NO SIGN OF DISTRESS AT THIS TIME. VENT PER ETT. FENTANYL FOR SEDATION. WAKENS EASILY AND FOLLOWS COMMANDS. DENIES PAIN. ASSISTS WITH TURNS. CT X 2 TO 20CM SUCTION. NO LEAKS. UNCONTROLLED AFIB PER CM. SEE FLOW SHEET FOR INFUSIONS.
--- NOTE | 2019-07-29 21:30 | NUR ---
NO CHANGES IN ASSESSMENT. REPOSITIONED FOR COMFORT. DENIES NEEDS
[2019-07-30] VITALS (72 sets, daily range): BP systolic 88–135; BP diastolic 50–81
--- NOTE | 2019-07-30 01:15 | NUR ---
AWAKENS EASILY AND FOLLOWS COMMANDS. BEGINNING TO WEAN SIL DOWN BP IS IMPROVING.
--- NOTE | 2019-07-30 03:30 | NUR ---
NO CHANGES. DENIES PAIN. NODS HEAD THAT SHE IS COMFORTABLE. PILLOWS USED FOR SUPPORT.
[2019-07-30 06:41] LABS: BASOPHILS 0 % (0-2); EOSINOPHILS 0 % (0-7); HEMATOCRIT 30.6 % (36.0-48.0); HEMOGLOBIN 9.7 g/dL (12-16); IMMATURE GRANULOCYTES 0.2 % (0-5); LYMPHOCYTES 4.6 % (15-50); MCH 32.6 pg (26.0-34.0); MCHC 31.7 g/dL (31.0-37.0); MCV 102.7 fL (80.0-100.0); MEAN PLATELET VOLUME 9.1 fL (7.4-10.4); MONOCYTES 5.8 % (2-11); NEUTROPHILS 89.4 % (40-80); PLATELET COUNT 271 10x3/uL (130-400); RBC 2.98 10x6/uL (4.00-5.40)
[2019-07-30 07:04] LABS: WBC 9.1 10x3/uL (4.8-10.8)
[2019-07-30 07:22] LABS: ALBUMIN 2.2 g/dL (3.4-5.0); ANION GAP 10.7 mmol/L (8-16); BILIRUBIN - TOTAL 0.32 mg/dL (0.2-1.3); CALCIUM 8.6 mg/dL (8.5-10.1); CARBON DIOXIDE 32.2 mmol/L (21.0-32.0); CREATININE - SERUM 0.9 mg/dL (0.6-1.3); MAGNESIUM - SERUM 1.8 mg/dL (1.8-2.4); PHOSPHOROUS 2.3 mg/dL (2.5-4.9); POTASSIUM - SERUM 3.9 mmol/L (3.5-5.1); PROTEIN - SERUM 5.7 g/dL (6.4-8.2)
--- NOTE | 2019-07-30 11:17 | NUR ---
Nutrition Follow-up: Intubated yesterday. Wt: 154# (up from 147# on 07/29) No BMs recorded Labs noted: Glu 181, PO4 2.3, Alb 2.2 Meds noted: D5NS @ 75, Solumedrol, Coumadin -If pt remains intubated, rec initiate nutrition support within 24-48 hours; rec Pulmocare at goal rate of 45 mL/hr (provides 1620 kcal, 68 g protein, 848 mL H2O). -RD following.
--- NOTE | 2019-07-30 19:00 | NUR ---
PT ASSESSMENT COMPLETED AT THIS TIME, NO CHANGES NOTED FROM NURSE REPORT. PT MAINTAINS ON VENT SUPPORT, VSS, WILL MONITOR FOR CHANGES
--- NOTE | 2019-07-30 21:00 | NUR ---
NO CHANGES NOTED AT THIS TIME, PT SEDATED WILL OPEN EYES TO STIMULATION, VSS, WILL MONITOR FOR CHANGES
--- NOTE | 2019-07-30 23:00 | NUR ---
PT REASSESSMENT COMPLETED AT THIS TIME, NO CHANGES NOTED, VSS, WILL MONITOR FOR CHANGES
[2019-07-31] VITALS (24 sets, daily range): BP systolic 100–137; BP diastolic 52–96
--- NOTE | 2019-07-31 01:00 | NUR ---
NO CHANGES NOTED AT THIS TIME, PT MAITAINS ON VENT, VSS, WILL MONITOR FOR CHANGES
--- NOTE | 2019-07-31 03:00 | NUR ---
PT REASSESSMENT COMPLETED AT THIS TIME, VSS, NO CHANGES NOTED
--- NOTE | 2019-07-31 05:00 | NUR ---
I&O AND DAILY WEIGHTS COMPLETED, NO CHANGES NOTED, VSS
[2019-07-31 06:18] LABS: BASOPHILS 0 % (0-2); EOSINOPHILS 0 % (0-7); HEMATOCRIT 29.6 % (36.0-48.0); HEMOGLOBIN 9.2 g/dL (12-16); IMMATURE GRANULOCYTES 0.2 % (0-5); LYMPHOCYTES 5.3 % (15-50); MCH 32.2 pg (26.0-34.0); MCHC 31.1 g/dL (31.0-37.0); MCV 103.5 fL (80.0-100.0); MEAN PLATELET VOLUME 8.9 fL (7.4-10.4); MONOCYTES 7.2 % (2-11); NEUTROPHILS 87.3 % (40-80); PLATELET COUNT 275 10x3/uL (130-400); RBC 2.86 10x6/uL (4.00-5.40); RDW 20.7 % (11.5-14.5); WBC 8.4 10x3/uL (4.8-10.8)
[2019-07-31 06:24] LABS: ALBUMIN 1.9 g/dL (3.4-5.0); ANION GAP 8.6 mmol/L (8-16); BILIRUBIN - TOTAL 0.28 mg/dL (0.2-1.3); CARBON DIOXIDE 31.5 mmol/L (21.0-32.0); CREATININE - SERUM 0.8 mg/dL (0.6-1.3); PHOSPHOROUS 2.3 mg/dL (2.5-4.9); POTASSIUM - SERUM 4.1 mmol/L (3.5-5.1); PROTEIN - SERUM 5.8 g/dL (6.4-8.2)
--- NOTE | 2019-07-31 10:09 | NUR ---
0700-RECIEVED PER FLOW SHEET-JOSIAS 1-2-FENT AT [facility]-CONTROLLED AFIB 78-102-I IJ TO D5NS AT 75-OGT-TO LOW INTER WALL-BILE TYPE DRAINAGE AUDIBLE BOWEL SOUNDS-REPONDS TO VERBAL STIMULI-BED ROTATION USED FOR CONSISTANT TURNING -ALL RAILS UP PER SAFETY STANDARD OF ROTATING BED 0900-FAMILY AT BEDSIDE-AND QUESTIONS ANSWERED
[2019-07-31 17:08] LABS: ACID FAST SMEAR Negative (()); AFB SPECIMEN PROCESSING Concentration (())
--- NOTE | 2019-07-31 18:11 | NUR ---
0904-FAMILY AT BEDSIDE QUESTIONS ANSWERED- 1130-DR NEWTON AT [facility] -AND SPOKE WITH SON REGARDING STATUS AND PLAN OF CARE 4222-DR WOOD AT BEDSIDE--KBRN
--- NOTE | 2019-07-31 19:00 | NUR ---
PT ASSESSMENT COMPLETED AT THIS TIME, NO CHANGES NOTED FROM NURSE REPORT, VSS, PT REMAINS ON VENT SUPPORT WITH FENTANYL SEDATION, PT OPENS EYES AND RESPONDS TO QUESTIONS THEN FALL BACK ASLEEP, NO DISTRESS NOTED, WILL MONITOR FOR CHANGES
--- NOTE | 2019-07-31 21:00 | NUR ---
PT GIVEN MEDS PER OGT TUBE AT THIS TIME, NO CHANGES NOTED, VSS, WILL MONITOR FOR CHANGES
--- NOTE | 2019-07-31 23:00 | NUR ---
PT REASSESSMENT COMPLETED AT THIS TIME, NO CHANGES NOTED, VSS
[2019-08-01] VITALS (25 sets, daily range): BP systolic 96–155; BP diastolic 53–101
--- NOTE | 2019-08-01 01:00 | NUR ---
PT RESTING ON VENT, NO DISTRESS NOTED, VSS, WILL MONITOR FOR CHANGES
--- NOTE | 2019-08-01 03:00 | NUR ---
PT REASSESSMENT COMPLETED AT THIS TIME, NO CHANGES NOTED, VSS
--- NOTE | 2019-08-01 05:00 | NUR ---
I&O AND DAILY WEIGHT COMPLETED AT THIS TIME, NO CHANGES NOTED, VSS
[2019-08-01 05:48] LABS: BASOPHILS 0 % (0-2); EOSINOPHILS 0 % (0-7); HEMATOCRIT 30.9 % (36.0-48.0); HEMOGLOBIN 9.8 g/dL (12-16); IMMATURE GRANULOCYTES 0.7 % (0-5); LYMPHOCYTES 5.8 % (15-50); MCH 32.3 pg (26.0-34.0); MCHC 31.7 g/dL (31.0-37.0); MEAN PLATELET VOLUME 8.7 fL (7.4-10.4); MONOCYTES 7.2 % (2-11); NEUTROPHILS 86.3 % (40-80); PLATELET COUNT 260 10x3/uL (130-400); RBC 3.03 10x6/uL (4.00-5.40); WBC 7.2 10x3/uL (4.8-10.8)
[2019-08-01 06:03] LABS: ANION GAP 8.8 mmol/L (8-16); CALCIUM 8.9 mg/dL (8.5-10.1); CARBON DIOXIDE 29.1 mmol/L (21.0-32.0); CREATININE - SERUM 0.9 mg/dL (0.6-1.3); POTASSIUM - SERUM 3.9 mmol/L (3.5-5.1)
--- NOTE | 2019-08-01 10:01 | NUR ---
0715-RECIEVED PT PER FLOW SHEET-REPOSITIONE TO L SIDE-CHECKED POSTERIOR SKIN-NO REDDNESS NOTED 829-SISTER AT BEDSIDE-ADDRESSED QUESTIONS TO BEST OF ABLILITY-DEMONSTRATED ROM TO HANDS AND FEET-SISTER ABLE TO RETURN DEMONSTRATION AND STATED VERY HAPPY TO DO FOR PT- 09-REPOSITIONE TO R SIDE-
--- NOTE | 2019-08-01 15:15 | NUR ---
DR HIGGINBOTHAM AT [facility]-FAMILY AT [facility]-ROM DONE BY FAMILY-WITH SUPERVISION OF STAFF-PT TOLERATING WELL PULMOCARE STARTED ORDERED-NOTED PT BITING ON ET TUBE-ASKED TO OPEN TEETH-PT NODDED YES -BUT DID NOT-ATTEMPTED TO OPEN LOWER JAW WITH TUG-STRONG RESISTANCE-MIRANDAUER UTILIZED TO OBTAIN AIRWAY-BITE BLOCK PLACED-PT APPEARED TO RELAX DR WOOD AT [facility]-CHANGED VENTILATOR TO SIMV-PT TOLERATING WELL
--- NOTE | 2019-08-01 19:00 | NUR ---
PT ASSESSMENT COMPLETED AT THIS TIME, NO CHANGES FROM NURSE REPORT, VSS, PT REMAINS ON VENT SUPPORT, NO DISTRESS NOTED, WILL MONITOR FOR CHANGES
--- NOTE | 2019-08-01 20:50 | NUR ---
PT'S HR WAS NOTED TO BE 130-150 A-FIB RVR, PT WAS AWAKE AND COUGHING, PT WAS GIVEN ADDITONAL SEDATION WITH VERSED AND SUCTIONED ETT
--- NOTE | 2019-08-01 21:48 | NUR ---
PT'S HR STILL 116-130 AT THIS TIME, DR. NEWTON WAS PAGED AND ADVISED TO CALL YULIANA JAIMES
--- NOTE | 2019-08-01 21:49 | NUR ---
DR SHRESTHA WAS PAGED AND NEW ORDER FOR DIGOXIN WAS GIVEN
--- NOTE | 2019-08-01 22:19 | NUR ---
PT RHTHYM CHANGED TO SINUS CHARLIE RATE OF 53 @ THIS TIME
[2019-08-02] VITALS (27 sets, daily range): BP systolic 109–169; BP diastolic 58–88
--- NOTE | 2019-08-02 01:00 | NUR ---
PT REMAINS SEDATED ON VENT, VSS, HR SINUS CHARLIE RATE IN THE LOW 50'S, WILL MONITOR FOR CHANGES
--- NOTE | 2019-08-02 03:00 | NUR ---
PT REASSESSMENT COMPLETED AT THIS TIME, NO CHANGES AT PRESENT, VSS, WILL MONITOR FOR CHANGES
[2019-08-02 06:50] LABS: ANION GAP 9.8 mmol/L (8-16); CALCIUM 8.5 mg/dL (8.5-10.1); CARBON DIOXIDE 29.8 mmol/L (21.0-32.0); INR 3.02 (0.85-1.17); MAGNESIUM - SERUM 1.9 mg/dL (1.8-2.4); POTASSIUM - SERUM 3.6 mmol/L (3.5-5.1); PROTIME 30.5 SECONDS (11.6-15.0)
[2019-08-02 08:32] LABS: BASOPHILS 0 % (0-2); EOSINOPHILS 0 % (0-7); HEMATOCRIT 33.3 % (36.0-48.0); HEMOGLOBIN 10.6 g/dL (12-16); IMMATURE GRANULOCYTES 1.6 % (0-5); LYMPHOCYTES 5.2 % (15-50); MCH 32.4 pg (26.0-34.0); MCHC 31.8 g/dL (31.0-37.0); MCV 101.8 fL (80.0-100.0); MEAN PLATELET VOLUME 9.3 fL (7.4-10.4); MONOCYTES 7.2 % (2-11); PLATELET COUNT 353 10x3/uL (130-400); RBC 3.27 10x6/uL (4.00-5.40); RDW 20.1 % (11.5-14.5); WBC 14.2 10x3/uL (4.8-10.8)
[2019-08-02 10:09] LABS: FUNGUS STAIN Final report (())
--- NOTE | 2019-08-02 11:10 | NUR ---
0700 PT RECIEVED ABLE TO FOLLOW COMMANDS, BP TRENDING UP AND PT BECAME AGITATED, VERSED GIVEN PER EMAR, REPOSITIONED, SEE SHIFT ASSESSMENT [address] NEWTON, SPOKE WITH DR SHRESTHA ABOUT BETAPACE DOSE, ORDERS TO CHANGE TO 80MG AND GIVE DOSE, BOTH MDS AWARE OF BRADYCARDIA, AM MEDS GIVEN, REPOSITIONED, BLEEDING FROM MOUTH, TOWEL PLACED AND SUCTIONING NEEDED, DR NEWTON AWARE [address] REMOVED BY DR ARANDA NURSE, PER DR ÁLVAREZ FENTANYL DOWN TO 50MCG PT ON SPONTANOUS, BP BEGAN TO CLIMB AND PT RR APPROX 6,PLACED BACK ON A RATE BY RT
--- NOTE | 2019-08-02 11:13 | NUR ---
CALLED AND LEFT MESSAGE FOR MIDLINE TO VASCULAR ACCESS
--- NOTE | 2019-08-02 13:43 | NUR ---
Nutrition Follow-up: Remains intubated. Noted Pulmocare started at 10 mL/hr (provides 360 kcal, 15 g protein, 188 mL H2O). Wt: 158.7# (up from 154# on 07/30) No BMs recorded Labs noted: Glu 177 Meds noted: Solumedrol, Lasix, D5NS @ 75, Coumadin -Rec increase Pulmocare 10 mL q 6 hrs to goal rate of 45 mL/hr as medically feasible. -RD following.
--- NOTE | 2019-08-02 14:19 | NUR ---
[address] ÁLVAREZ PT HAS BEEN AGITATED, AWAKE, ATTEMPTING TO SIT UP, ETC, ORDERS TO RETURN FENTANYL TO 100MCG AND RESUME VERSED PRN 1300 PTS SON HERE FOR VISITATION, UPDATE PROVIDED, STATED THAT PT DID NOT WANT TO BE ON "LIFE SUPPORT" ASKED WHAT PT MEANT BY THAT AND SON STATED HE DID NOT KNOW, DISCUSSED METHODS OF LIFE SAVING MEASURES AND THAT HE SHOULD LET STAFF KNOW WHAT HE DECIDES, DR BRITTANY QUILES NOTIFIED OF CONVERSATION. 1300 BED BATH AND LINEN CHANGE DONE
--- NOTE | 2019-08-02 17:12 | NUR ---
MIDLINE PLACED AND R SUBCLAVIAN CVL REMOVED PER PROTOCOL, TIP INTACT NO SIGNS OF BLEEDING
--- NOTE | 2019-08-02 20:30 | NUR ---
PT AWAKENS EASILY AND FOLLOWS COMMANDS. GIVEN VERSED FOR ANXIETY WHEN SHE WAKES UP. SINUS RHYTHM WITH PAC'S PER CM. R LATERAL CHEST TUBE TO WATER SEAL. NO LEAK. BENJAMIN TO GRAVITY WITH YELLOW URINE DRAINING. R UPPER ARM MIDLINE WITH FENTANYL FOR SEDATION AND PLASMALYTE INFUSING. HOB ELEVATED. AIR OVERLAY IN USE. WILL TURN FREQUENTLY. CONTINUING TO MONITOR.
[2019-08-03] VITALS (54 sets, daily range): BP systolic 104–188; BP diastolic 45–113
[2019-08-03 06:20] LABS: BASOPHILS 0.1 % (0-2); EOSINOPHILS 0 % (0-7); HEMATOCRIT 31.3 % (36.0-48.0); HEMOGLOBIN 10.2 g/dL (12-16); IMMATURE GRANULOCYTES 4.1 % (0-5); LYMPHOCYTES 8.3 % (15-50); MCH 32.3 pg (26.0-34.0); MCHC 32.6 g/dL (31.0-37.0); MONOCYTES 5.7 % (2-11); NEUTROPHILS 81.8 % (40-80); RBC 3.16 10x6/uL (4.00-5.40); RDW 19.3 % (11.5-14.5); WBC 11.5 10x3/uL (4.8-10.8)
[2019-08-03 06:24] LABS: ANION GAP 8.5 mmol/L (8-16); CALCIUM 8.2 mg/dL (8.5-10.1); MAGNESIUM - SERUM 2.1 mg/dL (1.8-2.4); POTASSIUM - SERUM 3.5 mmol/L (3.5-5.1)
[2019-08-03 06:25] LABS: MCV 99.1 fL (80.0-100.0); PLATELET COUNT 273 10x3/uL (130-400)
--- NOTE | 2019-08-03 08:54 | NUR ---
0700 PT RECIEVED SEDATED, NO SIGNS OF PAIN, VSS, ON VENT, R LAT CHEST INCISION CDI, OPEN TO AIR, CT TO WATER SEAL, NO AIR LEAK, BENJAMIN DRAINING YELLOW URINE, R MIDLINE DRESSING CDI, REPOSITIONED, WILL CONTINUE TO MONITOR 0800 FAMILY HERE FOR VISITATION 0845 AM MEDS GIVEN
--- NOTE | 2019-08-03 09:08 | NUR ---
OIL AND GAS SUPERINTENDENT TURNED OFF, ORDERS FOR FENTANYL PUSH FROM DR ÁLVAREZ AND TO BEGIN SPONTANOUS BREATHING TRIALS, RT NOTIFIED
--- NOTE | 2019-08-03 10:31 | NUR ---
NUTRITION F/U PT TOLERATING PULMOCARE AT CURRENT GOAL RATE 40 CC/HR. REMAINS ON VENT. WILL CONTINUE TO PROVIDE PULMOCARE AND MONITOR PT PROGRESS. RD FOLLOWING
[2019-08-03 10:35] LABS: INR 1.55 (0.85-1.17)
--- NOTE | 2019-08-03 10:38 | NUR ---
[address] BY [address] ARANDA NURSE 1020 PT AWAKE, NODS YES IN PAIN, BP ELEEVATED, FENTANYL GIVEN 1035 BP CONTINUES IN 180S PT APPEARS TO HAVE INCREASED WORK OF BREATHING, ON SPONTANOUS, DR ÁLVAREZ PAGED
--- NOTE | 2019-08-03 11:06 | NUR ---
RECIEVED RETURN CALL FROM DR ÁLVAREZ, ORDERS FOR 1 NINCH NITRO PASTE, DR NEWTON IN UNIT AND ORDERS TO START CLEVIPREX RECIEVED, APPLIED NITRO PASTE AND PREPARED OTHER MEDS, BP DOWN TO 120S, CLEVIPREX AT BEDSIDE BUT NOT STARTED. DR SOTO NURSE ETTA SPRINGER
--- NOTE | 2019-08-03 14:02 | NUR ---
1300 ABGS NIF VITAL SHOWN TO DR ÁLVAREZ WHILE IN UNIT, DR ÁLVAREZ DISCUSSED WITH RT AND FAMILY, EXTUBATED AT 1320 AND PLACED ON 4L NC, SPO2 DROPPING TO LOW 80S, PLACED ON BIPAP AND SPO2 IN 70S, DR ÁLVAREZ PAGED AND ORDERS FOR INTUBATION AND TO CALL ANESTHESIA FOR INTUBATION, PAGED DR SALINAS FOR INTUBATION STATED HE WAS ON HIS WAY, CALLED DR NEWTON TO NOTIFY, FAMILY IN WAITING ROOM AND AWARE
--- NOTE | 2019-08-03 16:06 | NUR ---
INTUBATED BY DR SALINAS, REVIEWED CXR, PT CONTINUED WITH SPO2 IN THE 60-70S, SUCTIONED, DR ÁLVAREZ NOTIFIED, STATED HE WAS COMING FOR EMERGENT BRONCH, CONSENTS SIGNED, DR SALINAS AND DR ÁLVAREZ WITH MYSELF AND RT IN ROOM FOR BRONCH, SEVERAL BLOODY CLOTS REMOVED AND SPO2 RETURNED TO 80-90S, VERBAL ORDER TO GIVE ANOTHER DOSE OF VERSED FROM DR ÁLVAREZ DURING BRONCH, SEE EMAR, FAMILY UPDATED BY DR ÁLVAREZ, DR NEWTON UPDATED, PT LINENS CHANGED, PER DR ÁLVAREZ PT INR STAT AND HOLD COUMADIN UNTIL RESULTS, ORDERS TO WAIT ON HIM TO BE IN BUILDING FOR CXR IN AM AND TO KEEP TURNED WITH R LUNG DOWN AND L LUNG UP. BED REPOSITIONED, WILL CONTINUE TO MONITOR
[2019-08-03 16:09] LABS: INR 1.47 (0.85-1.17); PROTIME 17.2 SECONDS (11.6-15.0)
[2019-08-03 17:57] LABS: MACROPHAGES BF 5 %; NEUT - BF 85 %
--- NOTE | 2019-08-03 18:34 | NUR ---
OGT PLACED WITHOUT DIFFICULTY, AUSCULTATED BY TWO NURSES, MEDS GIVEN, PER DR ÁLVAREZ HOLD AM XRAY UNTIL HE IS IN UNIT, DR NEWTON AWARE, VSS, WILL CONTINUE TO MONITOR
--- NOTE | 2019-08-03 19:00 | NUR ---
PT ASSESSMENT COMPLETED AT THIS TIME, NO CHANGES NOTED FROM NURSE REPORT, PT ON VENT SUPPORT, VSS AT THIS TIME, WILL MONITOR FOR CHANGES
--- NOTE | 2019-08-03 20:40 | NUR ---
PT'S FAMILY AT BEDSIDE AND UPDATED ON PATIENTS COND. NOTFIED THEM THAT THEY WOULD CONTACTED WITH CHANGES DURING THE NIGHT
--- NOTE | 2019-08-03 23:00 | NUR ---
PT REASSESSMENT COMPLETED AT THIS TIME, NO CHNAGES FROM PREVIOUS, WILL MONITOR FOR CHANGES, VSS
[2019-08-04] VITALS (30 sets, daily range): BP systolic 83–181; BP diastolic 47–87
--- NOTE | 2019-08-04 01:00 | NUR ---
PT REMAINS UNCHANGED AT THIS TIME, VSS, WILL MONITOR FOR CHANGES
--- NOTE | 2019-08-04 03:00 | NUR ---
PT REASSESSMENT COMPLETED AT THIS TIME, NO CHANGES NOTED, VSS, WILL MONITOR FOR CHANGES
[2019-08-04 04:23] LABS: HEMATOCRIT 29.7 % (36.0-48.0); HEMOGLOBIN 9.8 g/dL (12-16); MCH 32.5 pg (26.0-34.0); MCV 98.3 fL (80.0-100.0); MEAN PLATELET VOLUME 9.3 fL (7.4-10.4); PLATELET COUNT 273 10x3/uL (130-400); RBC 3.02 10x6/uL (4.00-5.40); RDW 19.6 % (11.5-14.5)
[2019-08-04 04:25] LABS: WBC 18.8 10x3/uL (4.8-10.8)
[2019-08-04 04:31] LABS: INR 1.5 (0.85-1.17); PROTIME 17.5 SECONDS (11.6-15.0)
[2019-08-04 04:33] LABS: ANION GAP 8.4 mmol/L (8-16); CALCIUM 8.2 mg/dL (8.5-10.1); CARBON DIOXIDE 34.4 mmol/L (21.0-32.0); MAGNESIUM - SERUM 1.9 mg/dL (1.8-2.4); POTASSIUM - SERUM 3.8 mmol/L (3.5-5.1)
[2019-08-04 04:42] LABS: EOSINOPHILS 1 % (0-7); LYMPHOCYTES 5 % (15-50); MONOCYTES 7 % (2-11); NEUTROPHILS 84 % (40-80); PLATELET ESTIMATE NORMAL
--- NOTE | 2019-08-04 05:00 | NUR ---
I&0 AND DAILY WEIGHTS COMPLETED, VSS, NO CHANGES NOTED
--- NOTE | 2019-08-04 07:42 | NUR ---
SHIFT REPORT RECEIVED. INTUBATED AND SEDATED. ETT SIZE 8.0 21 AT LIP LINE. VENT SETTING A/C, R-16, TV 500, FIO2 50%, PEEP 8. OGT IN PLACE CLAMPED. BENJAMIN MIDLINE WITH PLASMOLYTE AT 30ML/HR AND FENTANYL SUPERVISOR MILL AT 250MCG/HR. BENJAMIN CATHETER IN PLACE WITH YELLOW URINE NOTED. AIR OVERLAY MATTRESS IN PLACE. RU BACK INCISION MICHAEL. RIGHT SIDE PREVIOUS CT SITES C/D/I. BED ALARM ON, SIDE RAILS UP X 3. WILL CONTINUE TO MONITOR.
--- NOTE | 2019-08-04 09:17 | NUR ---
SLIGHT AGITATION NOTED. SBP ELEVATED IN 160S. VERSED GIVEN PER ORDERS. FAMILY AT BEDSIDE. WILL CONTINUE TO MONITOR.
--- NOTE | 2019-08-04 11:11 | NUR ---
RE-ASSESSMENT COMPLETED. NO ACUTE CHANGES FROM PREVIOUS ASSESMENT. HR IN 60S. NO FEVER NOTED. WILL CONTINUE TO MONITOR.
--- NOTE | 2019-08-04 12:30 | NUR ---
DR. NEWTON AT BEDSIDE. NO CHANGES MADE AT THIS TIME. WILL CONTINUE TO MONITOR.
--- NOTE | 2019-08-04 15:35 | NUR ---
PT APPEARS AGITATED. VERSED 4MG IV GIVEN PER ORDERS. WILL CONTINUE TO MONITOR.
--- NOTE | 2019-08-04 17:22 | NUR ---
PT RESTING COMFORTABLY AT THIS TIME. NO ACUTE CHANGES NOTED. HR 54-55. WILL CONTINUE TO MONITOR.
--- NOTE | 2019-08-04 18:13 | NUR ---
BATH GIVEN AT THIS TIME. COMPLETE LINEN CHANGE PROVIDED. PULLED UP AND REPOSITIONED FOR COMFORT. WILL CONTINUE TO MONITOR.
--- NOTE | 2019-08-04 19:31 | NUR ---
REPORT RECEIVED, SHIFT ASSESSMEN COMPLETED PER FLOW SHEET, SEE FOR DETAILS. 2115 SCHEDULED MEDS GIVEN, SEE EMAR FOR DETAILS. 2301 REASSESSMENT COMPLETED PER FLOW SHEET, SEE FOR DETAILS. 0100 ORAL CARE PROVIDED, REPOSITIONED IN BED. 0301 REASSESSMENT COMPLETED PER FLOW SHEET, SEE FOR DETAILS. 0500 NO ACUTE CHANGES NOTED, RESTING ON VENTILATOR, WILL CONTINUE TO MONITOR.
[2019-08-05] VITALS (32 sets, daily range): BP systolic 93–186; BP diastolic 48–89
[2019-08-05 04:12] LABS: BASOPHILS 0.1 % (0-2); EOSINOPHILS 0 % (0-7); HEMATOCRIT 30.6 % (36.0-48.0); LYMPHOCYTES 2.6 % (15-50); MCH 32.2 pg (26.0-34.0); MCHC 32.7 g/dL (31.0-37.0); MCV 98.4 fL (80.0-100.0); MEAN PLATELET VOLUME 9.2 fL (7.4-10.4); MONOCYTES 7.5 % (2-11); NEUTROPHILS 88.8 % (40-80); PLATELET COUNT 299 10x3/uL (130-400); RBC 3.11 10x6/uL (4.00-5.40); RDW 19.2 % (11.5-14.5); WBC 15.5 10x3/uL (4.8-10.8)
[2019-08-05 04:26] LABS: ANION GAP 8.5 mmol/L (8-16); CARBON DIOXIDE 34.7 mmol/L (21.0-32.0); CREATININE - SERUM 0.9 mg/dL (0.6-1.3)
[2019-08-05 04:34] LABS: POTASSIUM - SERUM 3.2 mmol/L (3.5-5.1)
[2019-08-05 04:44] LABS: INR 2.26 (0.85-1.17); PROTIME 24.3 SECONDS (11.6-15.0)
[2019-08-05 04:48] LABS: MAGNESIUM - SERUM 1.8 mg/dL (1.8-2.4)
--- NOTE | 2019-08-05 08:47 | NUR ---
FENTANYL DRIP OFF AT THIS TIME PER DR. ÁLVAREZ.
--- NOTE | 2019-08-05 09:52 | NUR ---
DR. ÁLVAREZ NOTIFIED OF BP 180/85 MAP 116. ORDERS RECEIVED.
--- NOTE | 2019-08-05 10:30 | NUR ---
CLEVIPREX INITATED AT THIS TIME AT 1MG/HR FOR BP 180/85.
--- NOTE | 2019-08-05 10:55 | NUR ---
PT WAS ON CPAP TRIAL. TESTS PERFORM FOR POSSIBLE EXTUBATION. O2 SAT DROPPED TO 80S. RESP THERARY AT BEDSIDE. DR. ÁLVAREZ NOTIFIED. CRACKLES AUDIBLE THROUGH OUT LUNG FIELD. CXR ORDERED PER DR. ÁLVAREZ.
--- NOTE | 2019-08-05 11:00 | NUR ---
FENTANYL DRIP RESTARTED AT PREVIOUS RATE OF 250MCG/HR. CLEVIPREX HAD BEEN STARTED TO TREAT BP. TURNED OFF ONCE PT WAS PLACED BACK ON SEDATION.
--- NOTE | 2019-08-05 12:00 | NUR ---
TUBE FEEDING RESTARTED PER ORDERS. OG PLACEMENT VERIFIED BY AUSCULTATION.
--- NOTE | 2019-08-05 13:12 | NUR ---
Nutrition Follow-up: Noted TF on hold this AM for spontaneous breathing trial; trial failed and TF to restart. Diet: Pulmocare - start @ 20 mL/hr and increase 10 mL/hr q 6 hrs to goal rate of 40 mL/hr + H2O flushes 30 mL q 3 hrs Wt: 147.7# (08/05); 159.8# (08/03); 147# (07/26) No BMs recorded Labs noted: K+ 3.8, Glu 165, Ca 8.0 Meds noted: Solumedrol, Lasix, KCl, Coumadin -Current TF provides 1440 kcal, 60 g protein, 754 mL H2O + 240 mL H2O from flushes; TF being managed by -RD following.
--- NOTE | 2019-08-05 15:10 | NUR ---
OKAY TO GIVE COUMADIN TODAY PER DR. ÁLVAREZ SINCE NO BLEEDING HAS BEEN NOTED TODAY.
[2019-08-06] VITALS (30 sets, daily range): BP systolic 89–164; BP diastolic 41–82
[2019-08-06 05:23] LABS: INR 2.56 (0.85-1.17); PROTIME 26.8 SECONDS (11.6-15.0)
--- NOTE | 2019-08-06 07:00 | NUR ---
REPORT RECEVIED FROM THE OFF GOING RN. SEE ASSESSMENT IN THE PTS FLOW SHEET. PT SEDATED AND ON THE VENT. VSS. BRADYCARDIA NOTED BUT BP STABLE. MD AWARE OF HEART RATE. FC NOTED WITH CLEAR, YELLOW URINE. CALL LIGHT IN REACH. WILL CONT POC.
--- NOTE | 2019-08-06 08:14 | NUR ---
DR ÁLVAREZ CALLED. CHANGE VENT SETTINGS TO 12 PRESSURE SUPPORT AND PEEP OF 8. FIO2 40%. RT NOTIFIED. SEDATION TURNED OFF. WILL CONT POC/MONITOR.
--- NOTE | 2019-08-06 09:10 | NUR ---
PT AWAKE AND FOLLOWING COMMANDS. RT NOTIFIED. VENT SETTINGS CHANGED PER DR ÁLVAREZ.
--- NOTE | 2019-08-06 09:34 | NUR ---
Nutrition Follow-up: Remains intubated. Nurse reports pt tolerating TF @ 40 mL/hr. Diet: Pulmocare 40 mL/hr + H2O flushes 30 mL q 3 hrs Wt: 143# (08/06); 147.7# (08/05) No BMs recorded; active BS per RN Labs reviewed Meds noted: Solumedrol, Lasix, KCl, Protonix -TF managed by MD. -May consider GI motility agent; no BMs recorded. -RD following.
--- NOTE | 2019-08-06 09:58 | NUR ---
DR NEWTON AT THE PTS BEDSIDE.
--- NOTE | 2019-08-06 10:00 | NUR ---
DR ÁLVAREZ AT THE PTS BEDSIDE WITH RT. ATTEMPTING WEENING TEST. PER DR ÁLVAREZ. NOT READY TO EXTUBATE. GIVE SEROQUEL 25MG VIA OGT NOW X1 DOSE AND RESEDAT. WILL ATTEMPT TOMORROW.
--- NOTE | 2019-08-06 10:50 | NUR ---
CXR REVIEWED BY DR NEWTON. GABRIELE RN (DR SOTO NURSES) SPOKE WITH SON VIA TELEPHONE. OK CONCENT FOR CT PLACEMENT FOR R SIDED PNX. DR NEWTON PLACE CT TO RIGHT UPPER ANTIOR CHEST. DRESSING C/D/I. STAT CXR CALLED PER DR NEWTON. NO NEW ORDERS.
--- NOTE | 2019-08-06 15:12 | NUR ---
PT TURNED AND MOUTH CARE COMPLETE. LUE SWOLLEN. RAD PULSE PALP. REPORTED SWELLING TO ETTA SOTO NURSE. BP CUFF TAKEN OFF.
--- NOTE | 2019-08-06 16:05 | NUR ---
REPORTED SWELLING TO LUE.
--- NOTE | 2019-08-06 19:25 | NUR ---
REPORT REC'D AND CARE ASSUMED, REC'D PT RESTING ON VENT VIA 8.0 ETT TAPED @ 21 CM LIPLINE, SEE FLOWSHEET FOR VENT SETTINGS, OGT TAPED SECURELY TO ETT, PLACEMENT VERIFIED VIA SM AIR BOLUS, PULMOCARE INFUSING @ 40CC/HR, RESIDUAL 20CC, RIGHT UPPER ARM MIDLINE DRSG CDI WITH PLASMALYTE @ 30CC/HR AND FENTANYL @ 250 MCG/HR OR 5CC, LEFT ARM WITH 2+ EDEMA, ELEVATED ON PILLOWS, BENJAMIN PATENT DRAINING CLEAR YELLOW URINE, RIGHT UPPER CHEST CT TO 20CM H20 SUCTION, NO AIR LEAK NOTED, BILAT TEDS, AIR OVERLAY MATTRESS IN USE, BILAT SOFT WRIST RESTRAINTS INTACT, VISIBLE TO NURSES STATION.
--- NOTE | 2019-08-06 20:25 | NUR ---
ROUTINE MED GIVEN, PT RESTING EYES CLOSED, VSS, WILL CONT TO MONITOR FOR CHANGES.
--- NOTE | 2019-08-06 20:45 | NUR ---
FAMILY AT BS, UPDATE GIVEN AND QUESTIONS ANSWERED.
--- NOTE | 2019-08-06 21:30 | NUR ---
EVENING MEDS GIVEN ORDERED, PT REPOSITIONED ONTO BACK, ARMS ELEVATED ON PILLOWS AND HEELS BRIDGED, SR UP X 2, BED IN LOW POSITION.
--- NOTE | 2019-08-06 23:20 | NUR ---
REASSESSMENT COMPLETED, PT RESTLESS IN BED, PT NODS HEAD YES WHEN ASKED IF HOT, BLANKET REMOVED AND FAN TURNED ON FOR PT COMFORT, PT REPOSITIONED UP IN BED AND ONTO LEFT SIDE SUPPORTED WITH PILLOW, PT APPEARS LESS AGITATED, PT HOLDING STOMACH, NODS "YES" WHEN ASKED IF NAUSEATED, TF RESIDUAL CHECKED, RESIDUAL REMAINS AT 20.
--- NOTE | 2019-08-06 23:30 | NUR ---
4 MG ZOFRAN GIVEN SLOW IVP FOR NAUSEA, WILL MONITOR FOR CHANGES.
[2019-08-07] VITALS (26 sets, daily range): BP systolic 93–208; BP diastolic 36–100
--- NOTE | 2019-08-07 01:10 | NUR ---
RESP RATE INCREASED TO 24, PT BITING ETT DESPITE ATTEMPTS TO INSTRUCT NOT TO, ROUTINE MEDS GIVEN, VERSED 2MG GIVEN SLOW IVP, AM SHIFT REPORTED THE FULL DOSE OF VERSED CAUSES A SHARP DROP IN PT'S BP, WILL GIVE HALF NOW AND HALF IN A LITTLE WHILE.
--- NOTE | 2019-08-07 03:00 | NUR ---
REASSESSMENT COMPLETED, PT REPOSITIONED IN BED FOR COMFORT, VSS, WILL MONITOR FOR CHANGES.
--- NOTE | 2019-08-07 05:00 | NUR ---
COMPLETE BATH AND LINEN CHANGE PROVIDED, TEDS REMOVED AND LEFT OFF DURING BATH, PT REPOSITIONED UP IN BED AND ONTO RIGHT SIDE SUPPORTED WITH PILLOWS.
--- NOTE | 2019-08-07 05:40 | NUR ---
PT'S RESP RATE 26, BP ELEVATED 175/68, 4MG VERSED GIVEN IN DIVIDED DOSE FOR AGITATION, WILL MONITOR CLOSELY FOR CHANGES.
[2019-08-07 06:48] LABS: ANION GAP 11.4 mmol/L (8-16); CALCIUM 8.2 mg/dL (8.5-10.1); CARBON DIOXIDE 34.7 mmol/L (21.0-32.0); POTASSIUM - SERUM 3.1 mmol/L (3.5-5.1)
[2019-08-07 07:01] LABS: HEMATOCRIT 30.1 % (36.0-48.0); HEMOGLOBIN 9.8 g/dL (12-16); MCH 32.5 pg (26.0-34.0); MCHC 32.6 g/dL (31.0-37.0); MCV 99.7 fL (80.0-100.0); MEAN PLATELET VOLUME 9.5 fL (7.4-10.4); PLATELET COUNT 290 10x3/uL (130-400); RBC 3.02 10x6/uL (4.00-5.40); RDW 19.2 % (11.5-14.5); WBC 30.1 10x3/uL (4.8-10.8)
[2019-08-07 07:14] LABS: INR 1.73 (0.85-1.17); PROTIME 19.6 SECONDS (11.6-15.0)
[2019-08-07 07:18] LABS: LYMPHOCYTES 3 % (15-50); MONOCYTES 1 % (2-11); NEUTROPHILS 95 % (40-80); PLATELET ESTIMATE NORMAL
--- NOTE | 2019-08-07 15:40 | NUR ---
1215-DR ÁLVAREZ AT BEDSIDE AND SPOKE TO BOTH SON ;AND DAUGHTER IN LAW-REGARDING PLAN COURSE OF TREATMENT-POTENTIAL TRACH REQUIREMENT IF NOT SUCCESSFUL AT EXTUBATION WITHIN 2 WK PERIOD-FAMILY EXPRESSED STRONG CONCERN REGARDING NOT SOONER-DR ÁLVAREZ REVIEWED ALL RISKS ASSOCIATED WITH TRACHEAOSTOMY WITH SON -AGREED WITH SON IS MORE COMFORTABLE THAN ORAL INTUBATION 1430-PT AWAKE AND AGITATED -ATTEMPTING TO COMMUNICATE-PROVIDED MARKER AND PAPER-R HAND RELEASED-TO WRITE WITH -PT REACHED FOR ORAL WAY AND MOUTHED TAKE OUT-REASSURED PT STRONG ATTEMPT WILL BE MADE IN MORNING- INTERNAL LUNG INCISION NEEDS TO STABILIZE ONE MORE DAY-PT BITING ET TUBE-VERSED 4MG IVP SLOW OVER 5MIN GIVEN-JOSIAS Stewart
--- NOTE | 2019-08-07 19:00 | NUR ---
PT ASSESSMENT COMPLETED AT THIS TIME, NO CHANGES FROM NURSE REPORT, PT WAS NOTED TO BE AWAKE AND BITTING ON THE ETT, PT WAS GIVEN PRN SEDATION OF VERSED AT THIS TIME DOSE OF 2MG DUE TO DROPPING B/P AND HR, WILL MONITOR FOR CHANGES
--- NOTE | 2019-08-07 19:05 | NUR ---
PT MORE CALM AND RESTING ON VENT SUPPORT, WILL MONITOR V/S FOR CHANGES
--- NOTE | 2019-08-07 21:33 | NUR ---
PT AWAKE AND AGITATED, VERSED 2 MG GIVEN FOR SEDATION AT THIS TIME
--- NOTE | 2019-08-07 23:00 | NUR ---
PT REASSESSMENT COMPLETED AT THIS TIME, NO CHANGES NOTED, VSS, WILL MONITOR FOR CHANGES
[2019-08-08] VITALS (27 sets, daily range): BP systolic 87–182; BP diastolic 36–85
--- NOTE | 2019-08-08 01:00 | NUR ---
PT RESTING ON VENT AT THIS TIME, NO DISTRES NOTED, WILL MONITOR FOR CHANGES
--- NOTE | 2019-08-08 03:00 | NUR ---
PT REASSESSMENT COMPLETED AT THIS TIME, NO CHANEGS FROM PREVIOUS, VSS, WILL MONITOR FOR CHANGES
--- NOTE | 2019-08-08 05:08 | NUR ---
I&O AND DAILY WEIGHTS, COMPLETED, NO CHANGES NOTED, WILL MONITOR FOR CHANGES
[2019-08-08 05:52] LABS: ANION GAP 9.4 mmol/L (8-16); CALCIUM 8.1 mg/dL (8.5-10.1); CARBON DIOXIDE 36.9 mmol/L (21.0-32.0); CREATININE - SERUM 0.9 mg/dL (0.6-1.3); POTASSIUM - SERUM 3.3 mmol/L (3.5-5.1)
[2019-08-08 05:56] LABS: INR 1.75 (0.85-1.17); PROTIME 19.8 SECONDS (11.6-15.0)
[2019-08-08 06:29] LABS: HEMATOCRIT 32.1 % (36.0-48.0); HEMOGLOBIN 10.2 g/dL (12-16); MCH 31.6 pg (26.0-34.0); MCHC 31.8 g/dL (31.0-37.0); MCV 99.4 fL (80.0-100.0); MEAN PLATELET VOLUME 9.6 fL (7.4-10.4); PLATELET COUNT 373 10x3/uL (130-400); RBC 3.23 10x6/uL (4.00-5.40); RDW 18.8 % (11.5-14.5); WBC 38.9 10x3/uL (4.8-10.8)
--- NOTE | 2019-08-08 06:42 | NUR ---
DR. ÁLVAREZ CALLED AND ORDERED TO HALF SEDATION, FENTANYL WAS DECREASED TO 125 MCG/HR
[2019-08-08 07:05] LABS: LYMPHOCYTES 4 % (15-50); MONOCYTES 5 % (2-11); NEUTROPHILS 89 % (40-80); PLATELET ESTIMATE NORMAL
--- NOTE | 2019-08-08 08:59 | NUR ---
FAMILY AT [facility] WITH PT AND ON CPAP [id number] PT ALERT
--- NOTE | 2019-08-08 17:30 | NUR ---
R LATERAL DRG CHANGED-SUTURES X2 INTACT-BETADINE OINT AND DATED-R APICAL CHEST TUBE DRG CHANGED-NO DRAINAGE NOTED-KBRN
--- NOTE | 2019-08-08 18:16 | NUR ---
AGITATED PULLING AT SHEET-ABLE TO COMMUNICATE HOT-FAN INCREASED AND SHEET REMOVED-C/O NAUSEA-TUBE FEEDING TURNED OFF AND ZOFRAN 4MG IVP GIVEN-INCREASED AGITATION-ATTEEMPTED TO PULL AT ET TUBE-SUCTIONED FOR NIL-VERSED 4 MG IVP GIVEN FOR SEVERE AGITATION-OGT ASPIRATED FOR NO RESIDUAL-PLACED TO STRAIGHT DRAINAGE-FOR NO DRAINAGE-PLACED TO TUBE FEEDING-SUMMERN
--- NOTE | 2019-08-08 19:30 | NUR ---
PT SEDATED ON VENT. AWAKENS EASILY AND FOLLOWS COMMANDS. REQUESTING HOB BE ELEVATED MORE. RAISED PER REQUEST. FENTANYL GTT FOR SEDATION WITH PRN VERSED PUSHES. R ANTERIOR CT TO 20CM SUCTION. SEROUS OP NOTED IN TUBE. NO LEAK AT THIS TIME. DRSG CDI. SR WITH PAC'S PER CM. VSS. WILL TURN PT FREQUENTLY. CONTINUING TO MONITOR.
[2019-08-09] VITALS (42 sets, daily range): BP systolic 80–167; BP diastolic 34–76
--- NOTE | 2019-08-09 | NUR ---
NO CHANGES IN ASSESSMENT. PT REPORTS BEING COMFORTABLE AND DENIES PAIN.
[2019-08-09 04:37] LABS: INR 1.96 (0.85-1.17); PROTIME 21.6 SECONDS (11.6-15.0)
[2019-08-09 04:40] LABS: ANION GAP 6.6 mmol/L (8-16); POTASSIUM - SERUM 3.6 mmol/L (3.5-5.1)
[2019-08-09 04:45] LABS: BASOPHILS 0.1 % (0-2); EOSINOPHILS 0 % (0-7); HEMATOCRIT 32.1 % (36.0-48.0); HEMOGLOBIN 10.3 g/dL (12-16); IMMATURE GRANULOCYTES 0.8 % (0-5); LYMPHOCYTES 1.9 % (15-50); MCH 32.5 pg (26.0-34.0); MCHC 32.1 g/dL (31.0-37.0); MCV 101.3 fL (80.0-100.0); MEAN PLATELET VOLUME 9.4 fL (7.4-10.4); MONOCYTES 3.6 % (2-11); NEUTROPHILS 93.6 % (40-80); PLATELET COUNT 376 10x3/uL (130-400); RBC 3.17 10x6/uL (4.00-5.40); RDW 19.6 % (11.5-14.5); WBC 32.4 10x3/uL (4.8-10.8)
--- NOTE | 2019-08-09 05:30 | NUR ---
BATHED WITH BABY SOAP AND LINEN CHANGED. TOLERATED WELL. SUCTIONED PER ETT DUE TO PT COUGHING RECIEVED A MODERATE AMOUNT OF WHITE SPUTUM.
--- NOTE | 2019-08-09 07:03 | NUR ---
SHIFT REPORT RECEIVED. PT ON VENT. AWAKE. POINTS TO ABDOMEN. ABDOMEN SOFT TO PALPATION. PT SHAKES HEAD YES WHEN ASKED IF IT HURTS. MIDLINE NOTED ON BENJAMIN WITH PLASMOLYTE AT 30ML/HR AND FENTANYL DRIP AT 200. CHEST TUBE TO RU CHEST NOTED. INTERMITTENT AIR LEAK NOTED. 20CM SUCTION. DRESSING C/D/I. BENJAMIN CATHETER WITH CONCENTRATED URINE NOTED. OGT WITH PULMOCARE AT 40ML/HR WITH 30ML H2O FLUSH Q 3HR. WRIST RESTRAINTS IN PLACE PER ORDER. BED IN LOW POSITION. SIDE RAILS UP X 2. WILL CONTINUE TO MONITOR.
--- NOTE | 2019-08-09 09:13 | NUR ---
Pt points to abdomen and shakes head yes when asked if her abdomen is hurting. Fern ELDRIDGE with Dr. Heath notified.
--- NOTE | 2019-08-09 09:20 | NUR ---
FENTANYL DRIP INCREASED TO 250MCG/HR.
--- NOTE | 2019-08-09 11:18 | NUR ---
CHEST TUBE DRESSING CHANGED AT THIS TIME.
--- NOTE | 2019-08-09 12:33 | NUR ---
SPOKE WITH DR. CALLES REGARDING VERSED ORDER. GIVE 2MG VERSED Q2HR PRN FOR SEDATION.
--- NOTE | 2019-08-09 13:03 | NUR ---
Nutrition Follow-up: Remains intubated. RN reports pt tolerating TF at goal rate. No BMs recorded. Noted pt reporting abd pain this AM. RN reports pt passing gas; on bedpan this AM. Diet: Pulmocare @ 40 mL/hr + H2O flushes 30 mL q 3 hrs Wt: 144.4# (08/09); 143# (08/06) Labs noted: K+ 3.6, Glu 211, Ca 8.0 Meds noted: Solumedrol, Lasix, Coumadin, Zofran -TF managed by -Rec GI motility agent -Monitor wt and skin integrity -RD following
--- NOTE | 2019-08-09 14:10 | OP ---
PATIENT NAME: ALESHIA MADRIGAL MEDICAL RECORD: [id number] :[birth year] LOCATION:[facility]05 ADMISSION DATE:07/26/19 SURGEON: CHELSEA HEATH MD DATE OF OPERATION: 07/26/2019 SURGEON: Chelsea Heath MD ANESTHESIA: General, by Dr. Evans. OPERATIONS PERFORMED: 1. Right upper lobe resection for non-small cell carcinoma of the lung. 2. Right radical mediastinal lymphadenectomy. 3. Cryoablation the intercostal nerves III, IV, V, , and VII. PREOPERATIVE DIAGNOSIS: Non-small cell carcinoma, right upper lobe. POSTOPERATIVE DIAGNOSIS: Non-small cell carcinoma, right upper lobe. INDICATION FOR OPERATION: Carcinoma, right upper lobe. FINDINGS OF THE OPERATION: Carcinoma, right upper lobe. Bronchoscopy demonstrated normal tracheobronchial tree prior to the thoracotomy and postoperatively, there were no endobronchial lesions and good orifice into the middle lobe and lower lobe on the right. ESTIMATED BLOOD LOSS: Less than 150 mL. DESCRIPTION OF PROCEDURE: After informed consent, adequate preoperative medication evaluation, the patient was brought to the operating room, placed on the table in the supine position. After induction of general endotracheal anesthesia and application of appropriate monitoring devices, the patient underwent flexible fiberoptic bronchoscopy and placement of a double-lumen tube. The patient was turned in a left lateral decubitus position, protecting the neurological structures and pressure points. The right chest was prepped and draped in sterile field, utilizing Betadine scrub, alcohol, and Betadine solution. Betadine-impregnated drape was also used. A right posterolateral thoracotomy incision was made and dissection carried down the fascia. Hemostasis maintained with electrocautery. The fifth interspace was identified and opened. The lung was retracted medially after exploration and lesion in the right upper lobe was identified. The patient underwent cryoablation of her intercostal nerves at level III, IV, V, , VII. The hilum of the lung was then dissected incising the pleura. Circumferentially the patient's pulmonary veins joined before entering the pericardium. The major fissure was dissected and the pulmonary artery identified and dissected proximally and distally. Attention was then turned toward the upper hilum and the pulmonary artery dissected free of surrounding structures. The trunk to the right upper lobe was then divided utilizing an endovascular stapler. Attention was then turned towards the fissure and the pulmonary artery to the posterior segment of the OPERATIVE REPORT [id number] ALESHIA MADRIGAL upper lobe was then divided utilizing an endovascular stapler. Attention was turned toward the vein and the individual veins to the upper lobe were dissected free of surrounding structures and the group transected with an endovascular stapler. Attention was then turned toward the bronchus. The nodes were dissected with the specimen and the upper lobe bronchus identified. Utilizing a TA 30 stapler the upper lobe bronchus was clamped and stapled after testing. The specimen was removed and sent to pathology. Attention was then turned toward the trachea. Dissection demonstrated lymph nodes along the right side of the trachea or anteriorly. There were several nodes at level 7 that were dissected free of surrounding tissues and sent to pathology. Level 8 was also biopsied. The level 10 nodes were all taken with the specimen. The chest was irrigated with copious amounts of normal saline and sterile water. Hemostasis was assured. The staple line in the anterior minor fissure was hemostatic and no air leak. Two #28 chest tubes placed, 1 anteriorly and superiorly and 1 inferiorly and posteriorly. The chest was again irrigated. The instrument count and sponge counts were correct times 2. Chest closed in layers utilizing #2 Vicryl pericostal sutures, #1 Vicryl on the latissimus, 2-0 Vicryl on subcutaneous tissue and skin approximated with 3-0 subcuticular Vicryl. Sterile dressings were applied. The patient turned in a supine position and the patient underwent flexible fiberoptic bronchoscopy with a good bronchial stump and no endobronchial lesions. There was good orifice to the middle lobe and lower lobe on the right. The patient tolerated the procedure well, although she was in paroxysmal atrial fibrillation during the case that responded to a diltiazem drip. The patient was then awakened and conveyed to the CV ICU in satisfactory condition. TRANSINT:[id number] Voice Confirmation ID: [id number] DOCUMENT ID: [id number] CHELSEA HEATH MD at 1410 CC: [id number] DICTATION DATE: 07/26/191218 BEE RAISER: 07/26/19 2339 ADM IN [facility] [id number] [place] [address]
--- NOTE | 2019-08-09 14:13 | NUR ---
RECEIVED REPORT ON PATIENT AND ASSUMED CARE.
--- NOTE | 2019-08-09 14:43 | NUR ---
PATIENT REASSESSMENT COMPLETE. VSS. CHEST TUBE TO SUCTION, NO AIR LEAK DETECTED. BENJAMIN CATH WITH YELLOW UOP NOTED. IV INFUSING RIGHT UPPER ARM MIDLINE PLASMOLYTE AT 30 CC/HR AND FENTANYL AT 200 MCG/HR. HR - 66, A-FIB ON CM, VENT SETTINGS A/C - 16, TV - 500, FIO2 - 80%, AND PEEP - 5. TUBE FEEDING PULMOCARE AT 40 CC/HR WITH 30 CC WATER FLUSHES Q3HRS. RESIDUAL - 10 CC. ETT 8.0, 21 CM AT TEETH. HEAD TO TOE ASSESSMENT COMPLETED. PATIENT TURNED AND REPOSITIONED IN BED.
--- NOTE | 2019-08-09 16:38 | MORECARE ---
CASE MANAGEMENT DISCHARGE SUMMARY PATIENT: ALESHIA MADRIGAL UNIT: [id number] ADM DATE: 07/26/19 AGE: 74 : [birth year] SEX: F [facility] AUTHOR: HOLLIE,DOC PHYSICIAN: REFERRING PHYSICIAN: CHELSEA NEWTON MD DATE OF SERVICE: 08/09/19 Discharge Plan Patient Name: ALESHIA MADRIGAL Facility: [facility]:[place] : 1945 Planned Disposition: Home Anticipated Discharge Date: Discharge Date: Expected LOS: Initial Reviewer: [email or web address] Initial Review Date: 07/26/2019 Generated: 08/09/19 5:37 pm DCP- Discharge Planning Updated by [email or web address]: Bety Bell on 07/28/19 3:[address] Late Entry 07/27/19 Patient Name: ALESHIA MADRIGAL Admission Status: Elective Accout number: [id number] Admission Date: 07-26-2019 : 1945 Admission Diagnosis:MALIGNANT NEOPLASM OF UPPER LOBE, RIGHT BRONCHUS OR BUD Attending: CHELSEA NEWTON Current LOS: 2 Anticipated DC Date: Planned Disposition: Home Primary Insurance: MEDICARE A & B Discharge Planning Comments: CM met with patient to complete initial dc planning assessment. CM educated patient on the CM role and verbal consent given by patient to complete assessment. Patient lives at home alone where she is independent with her care. At discharge patient plans to return home and feels this is a safe discharge. CM discussed availability of home health, rehab services, and medical equipment. Her family will drive her home upon discharge. Patient may need walk test if still requiring 02 @ discharge. Patient denied known discharge needs at this time. CM will continue to follow and will assist as needed with dc plans/needs. [employer] Gauger: Bety Bell DCPIA - Discharge Planning Initial Assessment Updated by [email or web address]: Bety Bell on 07/28/19 4:15 pm * Is the patient Alert and Oriented? Yes * How many steps to enter\exit or inside your home? * PCP Lei - @ [facility] * Pharmacy [facility] * Preadmission Environment Home Alone * ADLs Independent * Equipment None * List name and contact numbers for known caregivers / representatives who currently or will assist patient after discharge: NYLA PUENTES - [phone] * Verbal permission to speak to the caregivers and representatives has been obtained from the patient. Yes * Community resources currently utilized None * Additional services required to return to the preadmission environment? No * Can the patient safely return to the preadmission environment? Yes * Has this patient been hospitalized within the prior 30 days at any hospital? No Last DP export: 07/28/19 3:26 Patient Name: ALESHIA MADRIGAL Page [id number] at 1638 All edits/amendments must be made on the electronic document DICTATION DATE: 08/09/191636 JANITORIAL SUPERVISOR: KEVIN 08/09/191636 RPT#: [id number] DC DATE: STATUS: ADM IN [facility] [address] [place] [address] END OF REPORT
--- NOTE | 2019-08-09 16:55 | NUR ---
PATIENT TURNED AND REPOSTIONED. VSS.
--- NOTE | 2019-08-09 17:45 | NUR ---
PATEINT C/O OF ABDOMINAL PAIN, INDICATES NEED FOR BM BUT PLACED ON BEDPAN WITH NO RESULTS. UNKNOWN LAST BM. SPOKE TO DR. CALLES ORDERS MIRALAX ONCE/DAY, KUB XRAY AND AMALYSE AND LIPASE FOR AM LABS.
--- NOTE | 2019-08-09 18:24 | NUR ---
XRAY AT ROOM FOR KUB.
--- NOTE | 2019-08-09 20:30 | NUR ---
TRANSPORTED TO RADIOLOGY FOR CTA.
--- NOTE | 2019-08-09 20:50 | NUR ---
BACK IN CV05. MONITOR EQUIP ESTABLISHED. POSITIONED FOR COMFORT. HOB ELEVATED.
--- NOTE | 2019-08-09 22:30 | NUR ---
PT'S O2 SAT IS UPPER 80'S. VENT SETTING HAVE BEEN INCREASED TO 100% PEEP 8. NO IMPROVEMENT IN SATS. BP IS DECREASING. DR CALLES AWARE AND IS IN ROUTE TO BRONCH PT. ORDER RECIEVED TO START LEVOPHED AND TITRATE TO MAINTAIN SBP >90 AND 500 ML FLUID BOLUS. RT IS SETTING ROOM UP FOR BRONCH. PTS SON CALLED AND RECIEVED CONSENT FOR BRONCH. HE IS IN ROUTE AND WILL BE HERE SOON.
[2019-08-10] VITALS (80 sets, daily range): BP systolic 82–139; BP diastolic 40–89
--- NOTE | 2019-08-10 00:10 | NUR ---
AFTER BRONCHOSCOPY COMPLETED DR CALLES UPDATED THE FAMILY. THEY STATED THAT THEY (SON) WANT PT TO BE A MED CODE ONLY (NO CPR).
--- NOTE | 2019-08-10 02:40 | NUR ---
O2 SAT IS IMPROVED. 02 WEANED TO 90%.
[2019-08-10 04:44] LABS: BASOPHILS 0 % (0-2); EOSINOPHILS 0 % (0-7); HEMATOCRIT 29.1 % (36.0-48.0); HEMOGLOBIN 9.2 g/dL (12-16); IMMATURE GRANULOCYTES 0.7 % (0-5); LYMPHOCYTES 1.8 % (15-50); MCH 31.9 pg (26.0-34.0); MCHC 31.6 g/dL (31.0-37.0); MEAN PLATELET VOLUME 9.7 fL (7.4-10.4); MONOCYTES 2.1 % (2-11); NEUTROPHILS 95.4 % (40-80); PLATELET COUNT 367 10x3/uL (130-400); RBC 2.88 10x6/uL (4.00-5.40); RDW 19.9 % (11.5-14.5); WBC 20.8 10x3/uL (4.8-10.8)
[2019-08-10 04:59] LABS: ANION GAP 8.3 mmol/L (8-16); CALCIUM 7.7 mg/dL (8.5-10.1); CARBON DIOXIDE 36.3 mmol/L (21.0-32.0); POTASSIUM - SERUM 3.6 mmol/L (3.5-5.1)
[2019-08-10 05:00] LABS: CREATININE - SERUM 1.5 mg/dL (0.6-1.3)
[2019-08-10 05:08] LABS: INR 2.8 (0.85-1.17); PROTIME 28.7 SECONDS (11.6-15.0)
--- NOTE | 2019-08-10 07:30 | NUR ---
pt recieved sedated vss hr 50-60s nsr, ett secured, ogt verified with ausculatation, see shift assessment, will cotninue tomonitor
--- NOTE | 2019-08-10 08:30 | NUR ---
DR CALLES PAGED TO ASK ABOUT SOTALOL AND CARDIZIEM PO WHILE ON LEVOPHED, ORDERS TO WEAN LEVOPHED
--- NOTE | 2019-08-10 08:46 | NUR ---
PAGED DR CALLES TO NOTIFY OF FIB, ORDERS FOR CARDIZIEM GTT AND BOLUS 500ML IV FLUIDS,BOLUS GIVEN FROM PREVIOUS BAG
--- NOTE | 2019-08-10 09:03 | NUR ---
CALLED PHARMACY FOR SECOND TIME AND SPOKE WITH DAVE ABOUT JAN
--- NOTE | 2019-08-10 10:13 | NUR ---
DR NEWTON IN UNIT, UPDATED ON NIGHTS [place], ORDERS TO DC CARDIZEM, GIVE BETAPACE AND USE SIL INSTEAD OF LEVOPHED
--- NOTE | 2019-08-10 14:30 | NUR ---
SPOKE WITH DR NEWTON, WILL NOTIFY OF CHANGES IN HR AND IF SUSTAINING HIGHER THAN 130S
--- NOTE | 2019-08-10 17:37 | NUR ---
1200 FAMILY HERE FOR VISITATION 1500 LINEN CHANGE, BATH, BM NOTED 1700 FAMILY UPDATED, REPOSITIONED AND ORAL CARE DONE [id number]
--- NOTE | 2019-08-10 21:00 | NUR ---
1900 ASSESSMENT DONE SEE FLOW SHEET. INCREASE IN HR NOTED. 2100 MED GIVEN PER MAR. INCREASE IN HR NOTED WILL CONTINUE TO MONITOR.
--- NOTE | 2019-08-10 21:30 | NUR ---
O2 SAT BELLOW 90%. FIO2 TO 100. WILL CONTINUE TO MONTIOR.
--- NOTE | 2019-08-10 23:00 | NUR ---
REASSESSMENT DONE SEE FLOW SHEET. VSS.
[2019-08-11] VITALS (48 sets, daily range): BP systolic 90–139; BP diastolic 51–87
--- NOTE | 2019-08-11 01:00 | NUR ---
INCREASE IN HR NOTED. HEMO STABLE WILL CONTINUE TO MONITOR.
--- NOTE | 2019-08-11 03:06 | NUR ---
REASSESSMENT DONE SEE FLOW SHEET INCREASE IN HR NOTED. WILL CONTINUE TO MONITOR.
--- NOTE | 2019-08-11 05:00 | NUR ---
DR NEWTON INFORMED OF PT STATUS. NO NEW ORDERS RECEIVED WILL CONTINUE TO MONITOR.
[2019-08-11 06:18] LABS: BASOPHILS 0 % (0-2); EOSINOPHILS 0 % (0-7); HEMATOCRIT 25.4 % (36.0-48.0); HEMOGLOBIN 7.8 g/dL (12-16); IMMATURE GRANULOCYTES 0.6 % (0-5); LYMPHOCYTES 2.3 % (15-50); MCH 31.7 pg (26.0-34.0); MCHC 30.7 g/dL (31.0-37.0); MEAN PLATELET VOLUME 9.8 fL (7.4-10.4); MONOCYTES 4.1 % (2-11); RBC 2.46 10x6/uL (4.00-5.40); RDW 20.7 % (11.5-14.5)
[2019-08-11 06:24] LABS: INR 3.27 (0.85-1.17); PROTIME 32.5 SECONDS (11.6-15.0)
[2019-08-11 06:32] LABS: MCV 103.3 fL (80.0-100.0); PLATELET COUNT 285 10x3/uL (130-400); WBC 8.8 10x3/uL (4.8-10.8)
[2019-08-11 06:37] LABS: ALBUMIN 1.7 g/dL (3.4-5.0); ANION GAP 7.5 mmol/L (8-16); BILIRUBIN - TOTAL 0.41 mg/dL (0.2-1.3); CALCIUM 7.8 mg/dL (8.5-10.1); CARBON DIOXIDE 38.2 mmol/L (21.0-32.0); PHOSPHOROUS 4.2 mg/dL (2.5-4.9); POTASSIUM - SERUM 3.7 mmol/L (3.5-5.1); PROTEIN - SERUM 5.6 g/dL (6.4-8.2)
[2019-08-11 06:40] LABS: CREATININE - SERUM 1.1 mg/dL (0.6-1.3)
--- NOTE | 2019-08-11 08:58 | NUR ---
0700 PT RECIEVED INTUBATED, VSS, NO SIGNS OF PAIN, R MIDLINE DRESSING CDI, R CT WITH AIR LEAK PRESENT 20CM SUCTION, BENJAMIN DRAINING CLOUDY URINE, HR AFIB 120S 0825 PT HR NSR 60-70S WIT PACS, DR NEWTON NOTIFIED
[2019-08-11 12:08] LABS: FUNGUS STAIN Final report (())
--- NOTE | 2019-08-11 12:29 | NUR ---
PTS SON CALLED FOR CONSENT, DENIES QUESTIONS
[2019-08-11 14:08] LABS: ACID FAST SMEAR Negative (()); AFB SPECIMEN PROCESSING Concentration (())
--- NOTE | 2019-08-11 14:27 | NUR ---
FFP INFUSED, AWAITING PT INR RESULTS, SENT TO LAB
[2019-08-11 14:42] LABS: INR 1.96 (0.85-1.17); PROTIME 21.7 SECONDS (11.6-15.0)
--- NOTE | 2019-08-11 14:55 | NUR ---
DR NEWTON NOTIFIED OF IN AND OUT OF AFIB RATE 110S ORDERS FOR SOTALOL
--- NOTE | 2019-08-11 17:24 | NUR ---
[id number] PT IN IR WITH MYSELF, RT AND IR STAFF FOR PROCEDURE, TOLERAED WELL, RETURNED TO ROOM AND CT PLACED BY IR NOTED TO BE MAKING AUDUBLE AIR LIKE BUBBLING NOISES, IR NURSE NOTIFIED DR LEDESMA WITH NO NEW ORDERS, UPDATED DR NEWTON WITH ORDERS FOR BOTH CT TO 20CM SUCTION, STAT CXR, AFTER STAT CXR NOTED SUBQ AIR TO R LAT SIDE AND INSIDE OF RIGHT ARM, REMAINS IN AFIB/FLUTTER 80-110S WITH OCCASIONAL NSR BEATS, DR NEWTON AWARE. FAMILY AT BEDSIDE AND UPDATED.
--- NOTE | 2019-08-11 18:01 | NUR ---
NO CHANGE IN SUB Q EMPHYSEMA NOTED
--- NOTE | 2019-08-11 19:30 | NUR ---
REPORT REC'D AND CARE ASSUMED, REC'D PT SEDATED ON VENT VIA 8.0 ETT TAPED SECURELY, SEE FLOWSHEET FOR VENT SETTINGS, PT AWAKENS TO DEEP STIMULI, RIGHT UPPER ARM MIDLINE DRSG CDI WITH PLASMALYTE @ 30CC/HR AND FENTANYL @ 200MCG/HR, RIGHT UPPER CHEST CT TO 20CM H20 SUCTION, AIR LEAK NOTED, MD AWARE, DRSG CDI, RIGHT LATERAL PRIOR CT SITE OPEN TO AIR, DRSG APPLIED, RIGHT LATERAL CT TO 20CM H20 SUCTION, DRSG CDI, GENERALIZED EDEMA, OGT SECURED TO ETT WITH PULMOCARE @ 40CC/HR, BENJAMIN PATENT DRAINING CONCENTRATED URINE, BILAT SOFT WRIST RESTRAINTS INTACT, VISIBLE TO NURSES STATION.
--- NOTE | 2019-08-11 19:50 | NUR ---
ROUTINE MEDS GIVEN
--- NOTE | 2019-08-11 20:30 | NUR ---
FAMILY AT BS, UPDATE PROVIDED.
--- NOTE | 2019-08-11 20:45 | NUR ---
PT RESTLESS IN BED, NODS YES WHEN ASKED IF NEEDS TO USE THE BATHROOM, PT PLACED ON BEDPAN AT THIS TIME
--- NOTE | 2019-08-11 20:50 | NUR ---
PT REMAINS AGITATED RESP RATE 27, ATTEMPTS TO CALM PT UNSUCCESSFUL, 2MG VERSED GIVEN AND PT REMOVED FROM BEDPAN, NO RESULTS NOTED, DAUGHTER IN LAW AT BS.
--- NOTE | 2019-08-11 23:20 | NUR ---
REASSESSMENT COMPLETED, PT REPOSITIONED UP IN BED AND ONTO RIGHT SIDE, PT BECAME AGITATED KICKING LEGS, RESP RATE 24-27, 2MG VERSED GIVEN FOR AGITATION, BP STABLE, WILL MONITOR CLOSELY FOR CHANGES.
[2019-08-12] VITALS (60 sets, daily range): BP systolic 92–169; BP diastolic 48–90
--- NOTE | 2019-08-12 02:45 | NUR ---
PT'S RESP RATE 24, PT AGITATED AND KICKING LEGS IN BED, 2MG VERSED GIVEN AT THIS TIME, PT NODS HEAD YES WHEN ASKED IF HURTING, FENTANYL ADJUSTED TO 250MCG/HR, BP STABLE, WILL MONITOR CLOSELY FOR CHANGES.
--- NOTE | 2019-08-12 03:00 | NUR ---
PT'S RESP RATE 20, CM-SR @ 60, PT INCONTINENT OF LIQUID BROWN STOOL, COMPLETE BATH AND LINEN CHANGE PROVIDED, PT REPOSITIONED UP IN BED AND ONTO LEFT SIDE SUPPORTED WITH PILLOWS, PT BACK IN UCAF AT 115, BP REMAINS STABLE, SR UP X 2 VISIBLE TO NURSES STATION.
--- NOTE | 2019-08-12 05:00 | NUR ---
RADIOLOGY AT BS FOR AM CXR, NO VISITORS IN THIS AM.
--- NOTE | 2019-08-12 06:00 | NUR ---
AM MEDS GIVEN, PT RESTING EYES CLOSED ON VENT, BP STABLE, RESP RATE 22, PT CONTINUES IN CONTROLLED TO UNCONTROLLED AFIB WITH INTERMITTENT PERIODS OF ATTEMPTING TO CONVERT TO SR.
[2019-08-12 06:39] LABS: BASOPHILS 0.1 % (0-2); EOSINOPHILS 0 % (0-7); HEMATOCRIT 23.5 % (36.0-48.0); IMMATURE GRANULOCYTES 0.5 % (0-5); LYMPHOCYTES 1.9 % (15-50); MCH 31.7 pg (26.0-34.0); MCHC 30.2 g/dL (31.0-37.0); MCV 104.9 fL (80.0-100.0); MEAN PLATELET VOLUME 9.3 fL (7.4-10.4); NEUTROPHILS 94.5 % (40-80); RBC 2.24 10x6/uL (4.00-5.40); RDW 20.8 % (11.5-14.5); WBC 10.5 10x3/uL (4.8-10.8)
[2019-08-12 06:47] LABS: HEMOGLOBIN 7.1 g/dL (12-16); PLATELET COUNT 211 10x3/uL (130-400)
[2019-08-12 06:49] LABS: INR 2.47 (0.85-1.17)
--- NOTE | 2019-08-12 07:14 | NUR ---
DR NEWTON NOTIFIED OF H&H
[2019-08-12 07:37] LABS: ALBUMIN 2.2 g/dL (3.4-5.0); BILIRUBIN - TOTAL 0.49 mg/dL (0.2-1.3); CALCIUM 7.8 mg/dL (8.5-10.1); CARBON DIOXIDE 38.6 mmol/L (21.0-32.0); CREATININE - SERUM 0.8 mg/dL (0.6-1.3); MAGNESIUM - SERUM 2.9 mg/dL (1.8-2.4); PHOSPHOROUS 2.5 mg/dL (2.5-4.9); POTASSIUM - SERUM 3.6 mmol/L (3.5-5.1); PROTEIN - SERUM 5.1 g/dL (6.4-8.2); VANCOMYCIN - RANDOM 11.1 ug/mL (10.0-20.0)
--- NOTE | 2019-08-12 07:59 | NUR ---
0700 PT RECIEVED LIGHTLY SEDATED ETT SECURED VSS NO SIGNS OF PAIN OGT INPLACE PER AUSCULTATION,R A &P CT TO 20CM SUCTION, ANTERIOR WITH NO AIR LEAK, POSTERIOR WITH AIR LEAK, SUB Q EMPHYSEMA NOTED TO R INNER FOREARM, R MIDLINE DRESSING CDI, BENJAMIN DRAINING CONCENTRATED URINE [address] CALLES PT WAS VERY AWAKE AND AGITATED IN BED AFTER VERSED GIVEN AND FENTANYL INCREASED, ORDERS FOR VERSED NOW AND TO START VERSED GTT, ALSO NOTIFIED OF SPO2 85%. RT AWARE WELL.
--- NOTE | 2019-08-12 09:30 | NUR ---
PT CONVERTED TO NSR 0712
--- NOTE | 2019-08-12 11:01 | NUR ---
PT HAD BM, LINEN CHANGE AND BATH DONE WITH BENJAMIN CARE, PT WAS VERY AGITATED AFTER BATH, INCREASED VERSED AND FENTANYL BUT DID NOT DECREASE PTS AGITATION, PAGED DR CALLES WHO OKAYED TO GIVE VERSED PUSH WELL PT DID NOT RECIEVE MORE THAN 7MG VERSED AN HOUR
--- NOTE | 2019-08-12 13:07 | NUR ---
Nutrition Follow-up: RN reports pt tolerating TF. Diet: Pulmocare @ 40 H2O flushes 30 mL q 3 hrs Wt: 157.3# (08/12); 144.4# (08/09) - +12.9# in 3 days Last BM: 08/12 Labs noted: Na 148, Glu 215, Ca 7.8, Mg 2.9, Alb 2.2 Meds noted: Albumin, Miralax -TF managed by -RD following.
--- NOTE | 2019-08-12 15:09 | NUR ---
midline dressing changed
[2019-08-12 16:42] LABS: HEMATOCRIT 21.1 % (36.0-48.0)
[2019-08-12 16:47] LABS: HEMOGLOBIN 6.6 g/dL (12-16)
--- NOTE | 2019-08-12 16:58 | NUR ---
DR NEWTON IN UNIT AND NOTIFIED OF H&H
--- NOTE | 2019-08-12 18:29 | NUR ---
SECOND UNIT OF PRBC INFUSING, PT TOLERATING WELL, VSS
[2019-08-12 19:22] LABS: HEMOGLOBIN 8.4 g/dL (12-16)
--- NOTE | 2019-08-12 19:58 | NUR ---
NOTIFIED OF Hgb&Hct LABS AFTER 2 UNITS PRBC
--- NOTE | 2019-08-12 21:26 | NUR ---
ORDERS RECEIVED FROM ; GIVE TWO MORE UNITS OF PACKED RED BLOOD CELLS, LASIX IN BETWEEN. ORDERS PLACED, LAB NOTIFIED OF NEW ORDERS
--- NOTE | 2019-08-12 22:06 | NUR ---
FIRST UNIT PRBC TRANSFUSING
--- NOTE | 2019-08-12 23:30 | NUR ---
SECOND UNIT PRBC STARTED PER ORDERS
[2019-08-13] VITALS (28 sets, daily range): BP systolic 131–214; BP diastolic 64–90
--- NOTE | 2019-08-13 03:30 | NUR ---
LOOSE DARK BRON BM, COMPLETE BED BATH AND LINEN CHANGE, PT HAD INCREASE IN AGGITATION WITH PULLING AT ARMS AND MOVING HEAD SIDE TO SIDE, INCREASED ANXIETY NOTED, PRN VESED GIVEN PER MAR/ORDERS, VSS, WILL CONTINUR TO MONITOR
[2019-08-13 05:42] LABS: BASOPHILS 0.1 % (0-2); EOSINOPHILS 0 % (0-7); IMMATURE GRANULOCYTES 0.8 % (0-5); LYMPHOCYTES 1.2 % (15-50); MCH 30.5 pg (26.0-34.0); MCHC 32.8 g/dL (31.0-37.0); MEAN PLATELET VOLUME 9.6 fL (7.4-10.4); MONOCYTES 2.8 % (2-11); NEUTROPHILS 95.1 % (40-80); PLATELET COUNT 176 10x3/uL (130-400); RDW 22.5 % (11.5-14.5)
[2019-08-13 05:45] LABS: PROTIME 21.2 SECONDS (11.6-15.0)
[2019-08-13 05:47] LABS: HEMATOCRIT 34.5 % (36.0-48.0); HEMOGLOBIN 11.3 g/dL (12-16); MCV 93.2 fL (80.0-100.0); WBC 16.8 10x3/uL (4.8-10.8)
[2019-08-13 05:53] LABS: INR 1.91 (0.85-1.17)
[2019-08-13 06:29] LABS: ALBUMIN 2.6 g/dL (3.4-5.0); BILIRUBIN - TOTAL 0.81 mg/dL (0.2-1.3); CALCIUM 7.6 mg/dL (8.5-10.1); CREATININE - SERUM 0.9 mg/dL (0.6-1.3); MAGNESIUM - SERUM 2.5 mg/dL (1.8-2.4); PHOSPHOROUS 2.1 mg/dL (2.5-4.9); PROTEIN - SERUM 5.7 g/dL (6.4-8.2)
[2019-08-13 06:45] LABS: ANION GAP 9.9 mmol/L (8-16)
[2019-08-13 06:46] LABS: POTASSIUM - SERUM 2.9 mmol/L (3.5-5.1)
--- NOTE | 2019-08-13 06:57 | NUR ---
DR NEWTON NOTIFIED OF MORNING LABS, NO ORDERS RECEIVED
--- NOTE | 2019-08-13 09:08 | NUR ---
Nutrition Follow-up: Tolerating TF per RN. Diet: Pulmocare @ 40 H2O flushes 30 mL q 3 hrs Wt: 157.3# (08/12); 144.4# (08/09); 140# (07/26) Last BM: 08/13 Labs noted: Na 150, K+ 2.9, Glu 211, Ca 7.6, PO4 2.1, Mg 2.5, Alb 2.6 Meds noted: Lasix, KCl, Albumin, Miralax -TF managed by -RD following.
--- NOTE | 2019-08-13 09:27 | NUR ---
PT THRASHING AND TURNING AFTER TURNING AND MOUTH CARE. BOLUS VERSED GIVEN. PT RESPONDED WELL AFTER BOLUS. CALM, RESTING QUIETLY.
--- NOTE | 2019-08-13 13:26 | NUR ---
PT AWAKE AND THRASHING AROUND. UNABLE TO REDIRECT. TITRATING SEDATION ORDERED. SEE IV FLOW SHEET.
--- NOTE | 2019-08-13 14:15 | NUR ---
DR CALLES HERE ON ROUNDS. RT ROUNDING WITH HIM.
--- NOTE | 2019-08-13 19:00 | NUR ---
PT ASSESSMENT COMPLETED AT THIS TIME, NO CHANGES NOTED FROM NURSE REPORT, VSS, PT SEDATED ON VENT, WILL MONITOR FOR CHANGES
--- NOTE | 2019-08-13 20:45 | NUR ---
FAMILY AT BEDSIDE, GIVEN UPDATE ON PATIENTS COND. NO CHANGES NOTED IN PATIENTS COND. WILL MONITOR FOR CHANEGS
--- NOTE | 2019-08-13 23:00 | NUR ---
PT REASSESSMENT COMPLETED AT THIS TIME, NO CHANGES NOTED FROM PREVIOUS, WILL MONITOR FOR CHANGES
[2019-08-14] VITALS (34 sets, daily range): BP systolic 113–181; BP diastolic 66–88
--- NOTE | 2019-08-14 01:22 | NUR ---
PT WAS NOTED TO BE IN A-FIB RVR, PT NOT SEDATED AT THIS TIME AND TRYING TO TALK WITH ETT INPLACE, SEDATION WAS INCREASED AND BOLUS GIVE, ORAL SUCTION PERFORMED AND MODERATE OF SECREATIONS REMOVED, CUFF ON ETT WAS NOTED TO BE LEAKING AND ADDITIONAL INFLATION WAS GIVE WITH GOOD INFLATION BULB NOTED
--- NOTE | 2019-08-14 02:13 | NUR ---
PT HR STILL A FIB RVR RATES OF 100-125 NOTED CARDIZEM PO DOSE WAS GIVEN EARLY
--- NOTE | 2019-08-14 03:00 | NUR ---
PT STILL IN A-FIB RVR AT THIS TIME RATES 90-120, NO OTHER CHANGES NOTED AT THIS TIME, WILL MONITOR FOR CHANGES
--- NOTE | 2019-08-14 05:00 | NUR ---
PT I&O AND DAILY WEIGHT DOCUMENTATION COMPLETED AT THIS TIME, PT REMAINS IN A-FIB RVR RATES 110-125 WITH PERIODS OF SINUS RATES OF 65, WILL MONITOR FOR CHANGES
--- NOTE | 2019-08-14 05:25 | NUR ---
DR. NEWTON CALLED ABOUT HR STAYING IN THE 120-130 A-FIB RVR, NEW ORDERS NOTED
[2019-08-14 06:16] LABS: ALBUMIN 2.4 g/dL (3.4-5.0); ANION GAP 8.6 mmol/L (8-16); BILIRUBIN - TOTAL 0.62 mg/dL (0.2-1.3); CALCIUM 7.7 mg/dL (8.5-10.1); CREATININE - SERUM 0.8 mg/dL (0.6-1.3); MAGNESIUM - SERUM 2.6 mg/dL (1.8-2.4); PHOSPHOROUS 2.6 mg/dL (2.5-4.9); POTASSIUM - SERUM 3.6 mmol/L (3.5-5.1); PROTEIN - SERUM 5.7 g/dL (6.4-8.2)
[2019-08-14 06:19] LABS: BASOPHILS 0.1 % (0-2); EOSINOPHILS 0.1 % (0-7); HEMATOCRIT 33.9 % (36.0-48.0); HEMOGLOBIN 10.6 g/dL (12-16); IMMATURE GRANULOCYTES 0.8 % (0-5); LYMPHOCYTES 1.5 % (15-50); MCH 30.2 pg (26.0-34.0); MCHC 31.3 g/dL (31.0-37.0); MEAN PLATELET VOLUME 10.1 fL (7.4-10.4); NEUTROPHILS 94.5 % (40-80); PLATELET COUNT 172 10x3/uL (130-400); RBC 3.51 10x6/uL (4.00-5.40); RDW 22.5 % (11.5-14.5); WBC 17.6 10x3/uL (4.8-10.8)
[2019-08-14 06:23] LABS: MCV 96.6 fL (80.0-100.0)
--- NOTE | 2019-08-14 06:35 | NUR ---
PT GIVEN BED BATH AND BENJAMIN CARE GIVE, PT HAD SMALL BROWN BM, MEPLIX BOARDER DRESSING APPLIED TO SACRIAL AREA DUE TO SLIGHT REDNESS
--- NOTE | 2019-08-14 08:24 | NUR ---
HR 130 AFIB. 0900 BETAPACE GIVEN. STILL AFIB RVR. METOPROLOL GIVEN. HR NSR 60.
--- NOTE | 2019-08-14 10:10 | NUR ---
PT BACK IN AFIB RVR, RATE 130. CARDIZEM STARTED ORDERED.
--- NOTE | 2019-08-14 11:29 | NUR ---
DR NEWTON HERE. REPORTED AFIB RVR. DR STILES HERE. NEW MED ORDERS RECEIVED AND GIVEN.
--- NOTE | 2019-08-14 11:53 | NUR ---
HR 54 BPM,SB ON CM. DILTAZEM OFF.
[2019-08-14 12:09] LABS: INR 1.58 (0.85-1.17); PROTIME 18.2 SECONDS (11.6-15.0)
--- NOTE | 2019-08-14 19:00 | NUR ---
PT ASSESSMENT COMPLETED AT THIS TIME, NO CHANGES NOTED FROM NURSE REPORT, PT IS SEDATED ON THE VENT, HR 133 A-FIB RVR, WILL GIVE RATE CONTROL MEDS EARLY, AND MONITOR FOR CHANGES
--- NOTE | 2019-08-14 20:57 | NUR ---
PT'S HR 108-120 AT [facility] A-FIB RVR, WILL CONT TO MONITOR FOR CHANGES AND IMPROVEMENTS
--- NOTE | 2019-08-14 23:00 | NUR ---
PT REASSESSMENT COMPLETED AT THIS TIME, NO CHANGES NOTED, VSS, WILL MONITOR FOR CHANGES
[2019-08-15] VITALS (23 sets, daily range): BP systolic 116–174; BP diastolic 60–89
--- NOTE | 2019-08-15 01:00 | NUR ---
PT SEDATED ON THE VENT, VSS, NO CHANGES NOTED
--- NOTE | 2019-08-15 03:00 | NUR ---
PT REASSESSMENT COMPLETED AT THIS TIME MAINTAINING SEDATION AND VENT SUPPORT AT THIS TIME, WILL MONITOR FOR CHANGES
--- NOTE | 2019-08-15 05:00 | NUR ---
I&O AND DAILY WEIGHT DOCUMENTATION COMPLETE, VSS AT THIS TIME
[2019-08-15 05:48] LABS: BASOPHILS 0.1 % (0-2); EOSINOPHILS 0 % (0-7); HEMATOCRIT 37.1 % (36.0-48.0); HEMOGLOBIN 11.2 g/dL (12-16); IMMATURE GRANULOCYTES 1.4 % (0-5); LYMPHOCYTES 1.5 % (15-50); MCH 30.6 pg (26.0-34.0); MCHC 30.2 g/dL (31.0-37.0); MCV 101.4 fL (80.0-100.0); MEAN PLATELET VOLUME 10.4 fL (7.4-10.4); PLATELET COUNT 161 10x3/uL (130-400); RBC 3.66 10x6/uL (4.00-5.40); RDW 21.5 % (11.5-14.5); WBC 16.3 10x3/uL (4.8-10.8)
[2019-08-15 06:09] LABS: ALBUMIN 2.6 g/dL (3.4-5.0); BILIRUBIN - TOTAL 0.54 mg/dL (0.2-1.3); CALCIUM 7.5 mg/dL (8.5-10.1); CREATININE - SERUM 0.8 mg/dL (0.6-1.3); MAGNESIUM - SERUM 2.6 mg/dL (1.8-2.4); POTASSIUM - SERUM 4.1 mmol/L (3.5-5.1); PROTEIN - SERUM 5.8 g/dL (6.4-8.2)
[2019-08-15 06:11] LABS: ANION GAP 7.7 mmol/L (8-16); CARBON DIOXIDE 40.4 mmol/L (21.0-32.0)
--- NOTE | 2019-08-15 07:37 | NUR ---
PT BATHED AND LINENS CHANGED.
--- NOTE | 2019-08-15 12:19 | NUR ---
DR CALLES HERE. REPORTED SPO2 DROPS TO 86% AND RETURNS TO 90% WITH TURNING TO R SIDE. PEEP INCREASED TO 7. CT X 2 STRIPPED GENTLY AND CHECKED FOR KINKS.
--- NOTE | 2019-08-15 17:21 | NUR ---
1701-UNCONT [id number] 5MG IVP GIVEN 1708-SPONT RETURN TO SR 60-FAMILY AT BEDSIDE-REMOVED L RESTRAINT TO CHECK SKIN CONDITION AND EDEMA TO L HAND-SKIN INTACT-REMOVED BLOOD BAND-RESTRAINT RESECURED
--- NOTE | 2019-08-15 19:00 | NUR ---
PT ASSESSMENT COMPLETED AT THIS TIME, NO CHANGES NOTED FROM NURSE REPORT, PT REMAINS ON SEDATION AND VENT SUPPORT, HR IS IN THE 130'S AFIB RVR. WILL CONT TREATMENTS DIRECTED AND MONITOR FOR CHANGES
--- NOTE | 2019-08-15 19:54 | NUR ---
DILTIAZEM DRIP STOPPED AT THIS TIME DUE TO HR 100-118, WILL HOLD AND MONITOR FOR NEEDED INFUSION AFTER PO MEDS GIVEN
--- NOTE | 2019-08-15 20:50 | NUR ---
PT'S HR NOTED TO BE SB RATES IN THE 50'S, NO OTHER CHANGES NOTED AT THIS TIME, WILL MONITOR FOR CHANGES
--- NOTE | 2019-08-15 23:00 | NUR ---
PT REASSESSMENT COMPLETED AT THIS TIME, HR SB RATE IN THE 50'S WITH FREQ. PAC'S, PT REMAINS SEDATED ON THE VENT WITH NO OTHER CHANGES NOTED, VSS AT THIS TIME, WILL MONITOR FOR CHANGES
[2019-08-16] VITALS (24 sets, daily range): BP systolic 104–145; BP diastolic 53–86
--- NOTE | 2019-08-16 01:00 | NUR ---
PT RESTING WITH EYES CLOSED, RESP EVEN NON LABORED, NO DISTRESS NOTED, VSS, WILL CONT TO MONITOR FOR CHANGES
--- NOTE | 2019-08-16 01:00 | NUR ---
PT SEDATED ON THE VENT, NO CHANGES NOTED, VSS
--- NOTE | 2019-08-16 01:55 | NUR ---
PT WAS NOTED TO BE IN AFIB RVR RATES OF 120-140, WILL MONITOR FO CHANGES
--- NOTE | 2019-08-16 02:03 | NUR ---
PT GIVEN DILTIAZEM TABLET EARLY, WILL MONITOR FOR CHANGES
--- NOTE | 2019-08-16 03:00 | NUR ---
PT REASSESSMENT COMPLETED AT THIS TIME, PT'S HR STILL AFIB RVR RATES 90-120, WITH SOME SHORT PERIODS OF SB WITH PAC'S, WILL MONITOR FOR CHANGES
--- NOTE | 2019-08-16 05:15 | NUR ---
RESTARTED DILTIAZEM DRIP DUE TO SUSTAINED AFIB RVR RATES 120-130
--- NOTE | 2019-08-16 05:34 | NUR ---
DR. STILES CALLED ABOUT A-FIB RVR, NOTIFIED OF DECREASING B/P ON DILTIAZEM DRIP AND NO CHANGES IN HR, ORDER TO STOP THE DRIP AND GIVEN 0.25 MG OF DIGOXIN IV GIVEN AT THIS TIME
[2019-08-16 06:32] LABS: BASOPHILS 0 % (0-2); EOSINOPHILS 0 % (0-7); HEMOGLOBIN 10.5 g/dL (12-16); IMMATURE GRANULOCYTES 0.8 % (0-5); MCH 29.8 pg (26.0-34.0); MCHC 29.2 g/dL (31.0-37.0); MCV 102.3 fL (80.0-100.0); MEAN PLATELET VOLUME 10.9 fL (7.4-10.4); MONOCYTES 2.5 % (2-11); NEUTROPHILS 94.7 % (40-80); PLATELET COUNT 133 10x3/uL (130-400); RBC 3.52 10x6/uL (4.00-5.40); RDW 20.2 % (11.5-14.5); WBC 12.7 10x3/uL (4.8-10.8)
[2019-08-16 06:48] LABS: INR 1.41 (0.85-1.17); PROTIME 16.7 SECONDS (11.6-15.0)
[2019-08-16 06:49] LABS: ALBUMIN 2.8 g/dL (3.4-5.0); ANION GAP 3.8 mmol/L (8-16); BILIRUBIN - TOTAL 0.49 mg/dL (0.2-1.3); CALCIUM 7.7 mg/dL (8.5-10.1); CARBON DIOXIDE 39.7 mmol/L (21.0-32.0); CREATININE - SERUM 0.9 mg/dL (0.6-1.3); POTASSIUM - SERUM 3.5 mmol/L (3.5-5.1); PROTEIN - SERUM 5.4 g/dL (6.4-8.2)
--- NOTE | 2019-08-16 08:46 | NUR ---
PAGED ABOUT HEART RATE. ORDERS TO GO AHEAD AND GIVE 0900 MEDS.
--- NOTE | 2019-08-16 11:12 | EC ---
PATIENT:ALESHIA MADRIGAL DATE OF SERVICE: 07/26/19 SEX: F MEDICAL RECORD: [id number] DATE OF : 47 LOCATION:[place] [id number] AGE OF PATIENT: 74 ADMISSION DATE: 07/26/19 REFERRING PHYSICIAN: INTERPRETING PHYSICIAN: JEFFY SHRESTHA MD ECHOCARDIOGRAM REPORT ECHO CHARGES 4 ECHO COMPLETE Date: 07/30/19 CLINICAL DIAGNOSIS: AFIB ECHOCARDIOGRAPHIC MEASUREMENTS (adult normal given) AC root (d.<3.7cm) 3.1 cm LV Septum d (<1.2 cm> 1.1 cm Valve Excursion 2.2 cm LV Septum (systole) 1.2 cm Left Atria (s.<4.0cm> 4.5 cm LVPW d(<1.2cm) 1.3 cm RV (d.<2.3cm) 3.4 cm LVPW (sytole) 1.8 cm LV diastole(<5.6CM) 5.3 cm MV E-F(>70mm/sec) cm LV systole 3.6 cm LVOT Diameter 1.8 cm MV exc.(>10mm) cm Est.ejection fraction (50-75%) % DOPPLER: LVIT cm/sec A 77 cm/sec E cm/sec LA cm/sec RVSP 28.9 mmHg LVOT 113 cm/sec AOP1/2T m/s Asc. Ao 153 cm/sec RVOT 94 cm/sec RA cm/sec PA 104 cm/sec AV Gradient Peak 9.3 mmHg AV Mean 4.8 mmHg AV Area 2.0 cm MV Gradient Peak 3.8 mmHg MV Mean 1.9 mmHg MV Area cm COMMENTS: Finishing Range Supervisor: Cosme ASHLEY Comsec Manager: Terry Vick TAPE# PACS Pericardial Effusion N DATE OF SERVICE: 07/30/2019 FINDINGS: 1. Left ventricular chamber size is within normal limits. Left ventricular systolic function is normal at 55% to 60%. 2. Left atrium is enlarged at 4.5 cm. Right atrium and right ventricle chamber sizes are as well mildly dilated. 3. Valvular structures have normal structure and motion. 4. Doppler interrogation reveals mild aortic insufficiency, mild tricuspid regurgitation, no other valvular insufficiency or stenosis. ECHOCARDIOGRAM REPORT [id number] ALESHIA MADRIGAL 5. No evidence of pericardial effusion or left ventricular thrombus. TRANSINT:[id number] Voice Confirmation ID: [id number] DOCUMENT ID: [id number] JEFFY SHRESTHA MD at 1112 CC: [id number] DICTATION DATE: 07/30/19 1319 ELECTRICAL MAINTENANCE ENGINEER: 07/30/[address] [facility] [address] [place] [address]
--- NOTE | 2019-08-16 11:18 | NUR ---
AND AT BEDSIDE TO DISCUSS STATUS OF PT WITH SON. XRAYS GONE OVER WELL. EXAMINED THE POSTIOR CHEST TUBE. CHEST TUBE TURNED TO 30CM SUCTION. WILL CONTINUE TO MONITOR.
--- NOTE | 2019-08-16 13:02 | NUR ---
Nutrition Follow-up: Remains intubated. RN reports pt tolerating TF at goal rate. Diet: Pulmocare @ 40 H2O flushes 30 mL q 3 hrs Wt: 169.7# (08/16); 157.3# (08/12) - up 12.4# in 4 days Last BM: 08/13 per chart Labs noted: Na 146, Glu 350, Ca 7.7, Alb 2.8, elev LFTs Meds noted: D5W @ 75, Solumedrol, Albumin, Miralax -TF managed by . -Monitor wt and skin integrity. -RD following.
--- NOTE | 2019-08-16 19:00 | NUR ---
PT ASSESSMENT COMPLETED AT THIS TIME, NO CHANEGS NOTED FROM NURSE REPORT, PT HR NOTED TO BE 120-130 AFIB RVR, PT SEDATED ON VENT SUPPORT, PAGED DR STILES ABOUT HR AND RHYTHM
--- NOTE | 2019-08-16 19:37 | NUR ---
DR. CAPPS TIER TRUCK DRIVER FOR CARDIOLOGY, AND WAS PAGED, NEW ORDERS NOTED TO GIVEN 0.5 MG DIGOXIN IV AND TO GIVE 2100 DOSE OF SOTALOL EARLY
--- NOTE | 2019-08-16 21:07 | NUR ---
PT SEDATED ON VENT SUPPORT, NO CHANGES NOTED, HR 100-130 AFIB RVR, WILL MONITOR FOR CHANGES
--- NOTE | 2019-08-16 23:00 | NUR ---
PT REASSESSMENT COMPLETED AT THIS TIME, NO CHANGES NOTED FROM PREVIOUS, PT REMAINJS SEDATED ON VENT SUPPORT, HR 100-110 A-FIB/FLUTTER, WILL MONITOR FOR CHANGES
[2019-08-17] VITALS (23 sets, daily range): BP systolic 106–139; BP diastolic 44–82
--- NOTE | 2019-08-17 01:00 | NUR ---
PT SEDATED ON VENT SUPPORT, HR 68 NSR WITH PAC'S, NO DISTRESS NOTED, WILL MONITOR FOR CHANGES
--- NOTE | 2019-08-17 03:00 | NUR ---
PT REASSESSMENT COMPLETED AT THIS TIME, NO CHANGES NOTED FROM PREVIOUS, VSS, WILL MONITOR FOR CHANGES
--- NOTE | 2019-08-17 04:23 | NUR ---
WHILE GETTING PATIENT READY FOR BATH AND KUSH-CARE, PT'S HR CHANGED TO A-FIB RVR RATES 100-120
--- NOTE | 2019-08-17 04:30 | NUR ---
PT WAS BATHED AND KUSH-AREA CLEAN AFTER LARGE BM
--- NOTE | 2019-08-17 05:18 | NUR ---
PT'S HR 100-110 AT THIS TIME, A-FIB RVR, WILL MONITOR FOR CHANGES
--- NOTE | 2019-08-17 06:32 | NUR ---
PAGED DR. CARRASCO ABOUT HR AND A-FIB
--- NOTE | 2019-08-17 06:34 | NUR ---
DR CARRASCO ADVISED TO MONITOR THE PATIENT SOME MORE TO SEE IF THE PATIENT WILL CONVERT BACK TO SINUS
[2019-08-17 07:10] LABS: INR 1.4 (0.85-1.17); PROTIME 16.6 SECONDS (11.6-15.0)
[2019-08-17 08:11] LABS: FUNGUS CULTURE RESULT 1 Candida parapsilosis (())
[2019-08-17 12:42] LABS: BASOPHILS 0 % (0-2); EOSINOPHILS 0 % (0-7); HEMATOCRIT 35.3 % (36.0-48.0); HEMOGLOBIN 10.3 g/dL (12-16); IMMATURE GRANULOCYTES 0.6 % (0-5); LYMPHOCYTES 1.7 % (15-50); MCH 30.2 pg (26.0-34.0); MCHC 29.2 g/dL (31.0-37.0); MCV 103.5 fL (80.0-100.0); MEAN PLATELET VOLUME 11.4 fL (7.4-10.4); MONOCYTES 2.3 % (2-11); NEUTROPHILS 95.4 % (40-80); PLATELET COUNT 120 10x3/uL (130-400); RBC 3.41 10x6/uL (4.00-5.40); RDW 19.1 % (11.5-14.5); WBC 13.9 10x3/uL (4.8-10.8)
[2019-08-17 12:46] LABS: BILIRUBIN - TOTAL 0.51 mg/dL (0.2-1.3); CALCIUM 7.7 mg/dL (8.5-10.1); CREATININE - SERUM 0.9 mg/dL (0.6-1.3); POTASSIUM - SERUM 3.7 mmol/L (3.5-5.1)
[2019-08-17 12:47] LABS: ANION GAP 3.2 mmol/L (8-16)
[2019-08-17 12:49] LABS: CARBON DIOXIDE 41.5 mmol/L (21.0-32.0)
[2019-08-17 17:36] LABS: D-DIMER-QUANTITATIVE 1.21 ug/mLFEU (0.20-0.54)
[2019-08-18] VITALS (34 sets, daily range): BP systolic 112–146; BP diastolic 43–67
[2019-08-18 06:49] LABS: INR 1.33 (0.85-1.17); PROTIME 16.4 SECONDS (11.6-15.0)
[2019-08-18 06:58] LABS: ALBUMIN 2.9 g/dL (3.4-5.0); ANION GAP 7.2 mmol/L (8-16); BILIRUBIN - TOTAL 0.71 mg/dL (0.2-1.3); CALCIUM 7.9 mg/dL (8.5-10.1); CARBON DIOXIDE 38.8 mmol/L (21.0-32.0); CREATININE - SERUM 0.9 mg/dL (0.6-1.3); PROTEIN - SERUM 4.6 g/dL (6.4-8.2)
--- NOTE | 2019-08-18 07:15 | NUR ---
PT SEDATED AND ON VENT AT 100%. VSS, HR 50'S. PT HAS TWO RIGHT CHEST TUBES. UPPER ANTERIOR CT HAS NOTICABLE AIR LEAK WITH SEROUS DRAINAGE. SUCTION AT 20. LATERAL CT HAS NOTICABLE AIR LEAK WITH SEROSANG DRAINAGE. SUCTION AT 40. PT HAS GENERALIZED EDEMA. BILATERAL ARM BRUISING. BENJAMIN CATHETER. RIGHT UPPER ARM MIDLINE IV. TEDS IN USE. PT ON AIR OVERLAY MATTRESS.
--- NOTE | 2019-08-18 08:25 | NUR ---
TUBE FEEDINGS STOPPED AT REQUEST OF CV SURGERY NURSES FOR CHEST TUBE CHANGE LATER.
[2019-08-18 09:04] LABS: HEMATOCRIT 30.9 % (36.0-48.0); HEMOGLOBIN 9.5 g/dL (12-16); MCH 30.4 pg (26.0-34.0); MCHC 30.7 g/dL (31.0-37.0); MEAN PLATELET VOLUME 11.7 fL (7.4-10.4); RBC 3.12 10x6/uL (4.00-5.40); RDW 18.5 % (11.5-14.5); WBC 11.6 10x3/uL (4.8-10.8)
--- NOTE | 2019-08-18 10:39 | NUR ---
ATTEMPTED TO CALL DR GRISSOM OFFICE. GOT RECORDING THAT MAILBOX WAS FULL AND COULD NOT ACCEPT MESSAGES
--- NOTE | 2019-08-18 10:44 | NUR ---
DR GRISSOM CALLED UNIT SINCE HADN'T HEARD FROM NURSING. REVIEWED PT COAG AND CBC RESULTS. NO NEW ORDERS RECEIVED.
--- NOTE | 2019-08-18 11:22 | NUR ---
TELEPHONE CONSENT PROVIDED BY DHAVAL GONZALEZ FOR PATIENT TO HAVE CHEST TUBE REPLACED BY DR HAMMOND.
--- NOTE | 2019-08-18 14:31 | NUR ---
Nutrition Follow-up: Noted plans to place larger chest tube today. Third space fluid per MD. Diet: NPO Wt: 180.7# (08/18); 169.7# (08/16); 146.6# (07/27) Last BM: 08/17 Labs noted: Na 145, Glu 283, Alb 2.9, Ca 7.9 Meds noted: Humalog, D5W @ 75, Solumedrol, Albumin -TF managed by MD. -Monitor wt and skin integrity. -RD following.
--- NOTE | 2019-08-18 14:46 | NUR ---
PT RETURNED TO ROOM FROM SPECIALS. PLACED ON BEDSIDE MONITORING. NEW CHEST TUBE SHOWS NO AIRLEAK. PLACED ON SUCTION AT 15.
--- NOTE | 2019-08-18 19:15 | NUR ---
PT SEDATED ON VENTILATOR. NO SIGN OF DISTRESS. SINUS CHARLIE PER CM. CT X 2, BOTH HAVE AIR LEAKS. TURNED TO RIGHT SIDE. EXTREMITIES ELEVATED ON PILLOWS TO HELP REDUCE EDEMA.
[2019-08-19] VITALS (34 sets, daily range): BP systolic 91–201; BP diastolic 41–90
--- NOTE | 2019-08-19 | NUR ---
REMAINS SEDATED ON VENTILATOR. AIR LEAKS BOTH CHEST TUBES REMAIN THE SAME.
[2019-08-19 07:15] LABS: HEMATOCRIT 30.9 % (36.0-48.0); HEMOGLOBIN 9.8 g/dL (12-16); MCH 30.2 pg (26.0-34.0); MCHC 31.7 g/dL (31.0-37.0); MEAN PLATELET VOLUME 11.7 fL (7.4-10.4); RBC 3.25 10x6/uL (4.00-5.40); RDW 18.2 % (11.5-14.5)
[2019-08-19 07:21] LABS: INR 1.31 (0.85-1.17); PROTIME 16.2 SECONDS (11.6-15.0)
[2019-08-19 07:28] LABS: WBC 15.9 10x3/uL (4.8-10.8)
[2019-08-19 07:29] LABS: MCV 95.1 fL (80.0-100.0)
[2019-08-19 07:37] LABS: ALBUMIN 2.8 g/dL (3.4-5.0); ALKALINE PHOSPHATASE 89 U/L (46-116); CALC OSMOLALITY 309 mosm/kg (275-300); CALCIUM 7.8 mg/dL (8.5-10.1); CARBON DIOXIDE 38.1 mmol/L (21.0-32.0); CHLORIDE - SERUM 103 mmol/L (98-107); CREATININE - SERUM 0.7 mg/dL (0.6-1.3); GLUCOSE 254 mg/dL (74-106); POTASSIUM - SERUM 4.3 mmol/L (3.5-5.1); PROTEIN - SERUM 4.5 g/dL (6.4-8.2); SODIUM 142 mmol/L (136-145); UREA NITROGEN 63 mg/dL (7-18); eGFR NON AFRICAN AMERICAN 87 mL/min (90-120)
[2019-08-19 07:49] LABS: ALT (SGPT) 119 U/L (10-68)
--- NOTE | 2019-08-19 08:13 | NUR ---
DR GRISSOM CALLED TO REVIEW LABS. NO NEW ORDERS RECEIVED.
--- NOTE | 2019-08-19 09:55 | NUR ---
DR NEWTON AT BEDSIDE TO SEE PT. VISITOR AT BEDSIDE. UPDATED.
--- NOTE | 2019-08-19 11:05 | NUR ---
PT OFF UNIT TO [facility]
--- NOTE | 2019-08-19 12:39 | NUR ---
TISSEAL [id number] EXP 09/10/20 [id number]
--- NOTE | 2019-08-19 13:04 | NUR ---
PT RETURNED FROM O.R. TRACH AND PEG PLACEMENT.
--- NOTE | 2019-08-19 14:56 | NUR ---
paged dr campos to verify ok to give pt ordered lovenox
[2019-08-19 17:43] LABS: HEMATOCRIT 31.2 % (36.0-48.0)
[2019-08-19 17:55] LABS: INR 1.4 (0.85-1.17)
--- NOTE | 2019-08-19 18:04 | NUR ---
RESULTS OF H&H RELAYED TO DR NEWTON. SAID NO TO TRANSFUSION OF PRBC. WILL RECHECK IN AM. ORDER HAS BEEN CANCELLED.
--- NOTE | 2019-08-19 19:30 | NUR ---
REPORT RECEIVED. RECEIVED PATIENT IN BED/SEDATED. 8.0 TRACH INTACT/SECURE PATENT CONNECTED TO MECHANICAL VENT AT ORDERED SETTINGS. CHEST TUBES X 2 RT UPPER ANTERIOR AND RT LATERAL CHEST INTACT AND PATENT CONNECTED TO SUCTION. AIR LEAK NOTED IN BOTH. MONITORS CONNECTED TO PATIENT WITH ALARMS SET. ASSESSMENT COMPLETED PER FLOW SHEET WITH NO ACUTE DISTRESS OBSERVED. VSS. WILL CONT CURRENT POC
--- NOTE | 2019-08-19 21:00 | NUR ---
SEDATED/ TRACH INTACT/SECURE/PATENT CONNECTED TO MECH VENT AT ORDERED SETTINGS. CHEST TUBES INTACT/SECURE/PATENT. ORAL CARE GIVEN WITH MODERATE AMOUNT OF BLOOD CLEANED/SUCTIONED FROM MOUTH. GRAHAM WELL
--- NOTE | 2019-08-19 23:00 | NUR ---
REASSESSMENT COMPLETED PER FLOW SHEET WITH NO ACUTE DISTRESS OBSERVED. VSS. TRACH INTACT/SECURE/PATENT CONNECTED TO MECH VENT AT ORDERED SETTINGS.
[2019-08-20] VITALS (32 sets, daily range): BP systolic 94–190; BP diastolic 37–88
--- NOTE | 2019-08-20 03:00 | NUR ---
REASSESSEMENT COMPLETED PER FLOW SHEET WITH NO ACUTE DISTRESS OBSERVED. VSS. SEDATED. TRACH PATENT/INTACT/SECURE CONNECTED TO MECH VENT AT ORDERED SETTINGS .
--- NOTE | 2019-08-20 05:00 | NUR ---
SEDATED. TRACH INTACT/SECURE/PATENT AND CONNECTED TO MECH VENT AT ORDERED SETTINGS. VSS
[2019-08-20 06:16] LABS: ALBUMIN 3.3 g/dL (3.4-5.0); ALKALINE PHOSPHATASE 86 U/L (46-116); BILIRUBIN - TOTAL 1.42 mg/dL (0.2-1.3); CALCIUM 7.9 mg/dL (8.5-10.1); CARBON DIOXIDE 35.9 mmol/L (21.0-32.0); CHLORIDE - SERUM 100 mmol/L (98-107); CREATININE - SERUM 0.6 mg/dL (0.6-1.3); POTASSIUM - SERUM 3.7 mmol/L (3.5-5.1); PROTEIN - SERUM 5.2 g/dL (6.4-8.2); SODIUM 142 mmol/L (136-145); UREA NITROGEN 61 mg/dL (7-18); eGFR NON AFRICAN AMERICAN > 90 mL/min (90-120)
[2019-08-20 06:23] LABS: ALT (SGPT) 88 U/L (10-68); CALC OSMOLALITY 303 mosm/kg (275-300); GLUCOSE 172 mg/dL (74-106)
[2019-08-20 06:40] LABS: INR 1.37 (0.85-1.17); PROTIME 16.7 SECONDS (11.6-15.0)
--- NOTE | 2019-08-20 08:08 | NUR ---
PT SEDATED AND ON VENT. MOUTH CARE DONE AND TURNED.
[2019-08-20 08:54] LABS: MCH 31.4 pg (26.0-34.0); MCHC 33.9 g/dL (31.0-37.0); MEAN PLATELET VOLUME 10.9 fL (7.4-10.4); WBC 16.1 10x3/uL (4.8-10.8)
[2019-08-20 08:55] LABS: HEMATOCRIT 22.7 % (36.0-48.0); HEMOGLOBIN 7.7 g/dL (12-16); MCV 92.7 fL (80.0-100.0); RBC 2.45 10x6/uL (4.00-5.40)
--- NOTE | 2019-08-20 09:44 | NUR ---
NUTRITION F/U PT REMAINS SEDATED ON VENT. S/P TRACH AND PEG. PULMOCARE TUBE FEEDS CURRENTLY ON HOLD. PT HAD PREVIOUSLY BEEN AT GOAL RATE 40 CC/HR. WILL PROVIDE PULMOCARE WHEN RESUMED, MONITOR PT PROGRESS. RD FOLLOWING
--- NOTE | 2019-08-20 12:12 | NUR ---
MID LINE PLACED TODAY BY VASCULAR ACCESS NURSE TO CANDIE. DR NEWTON SPOKE TO FAMILY AT BS. DR ÁLVAREZ DECREASED SPO2 TO 90%. 1ST UPRBC STARTED.
[2019-08-20 14:47] LABS: APTT 22.8 SECONDS (22.8-39.4)
[2019-08-20 15:00] LABS: INR 1.26 (0.85-1.17); PROTIME 15.7 SECONDS (11.6-15.0)
--- NOTE | 2019-08-20 18:52 | NUR ---
1630-FAMILY AT BEDSIDE-VOICED CONCERNS REGARDING PT COURSE OF EVENTS SINCE ADMIT DAY--STATED SPOKE WITH DR GRISSOM-ENOCOURAGED CONTINUING IS-ADVICE GIVEN TO SPEAK WITH DR'S AND EXPRESS PT WISHES TO MEDICAL TEAM 165-DR RUIZ AT BEDSIDE AND SPOKE WITH FAMILY-TUBE FEEDING RESTARTED ORDERED VIA PEG-[facility]BR[facility]
--- NOTE | 2019-08-20 19:00 | NUR ---
REPORT RECEIVED. RECEIVED PATIENT IN BED. SEDATED. TRACH INTACT/SECURE/PATENT CONNECTED TO MECH VENT AT ORDERED SETTINGS. HOB UP 30 DEGREES. GT INTACT/SECURE/PATENT WITH TUBE FEEDINGS INFUSING ORDERED. RT ANTERIOR AND LATERAL CHEST TUBE INTACT/SECURE/PATENT CONNECTED TO SUCTION BOTH WITH AIR LEAK NOTED. MONITORS CONNECTED TO PATIENT WITH ALARMS SET. VSS. ASSESSMENT COMPLETED PER FLOW SHEET WITH ALARMS SET.
--- NOTE | 2019-08-20 21:00 | NUR ---
SEDATED. TRACH INTACT/PATENT/SECURE, [facility] AT ORDERED SETTINGS. HOB UP 30 DEGREES. GT PATENT/INTACT/SECURE WITH TUBE FEEDING INFUSING ORDERED AND GRAHAM WIHOUT DIFF. RT ANTERIOR AND LATERAL CHEST TUBES INTACT/SECURE/PATENT CONNECTED TO SUCTION BOTH WITH AIR LEAK VISIBLE. MONITORS CONNECTED TO PATIENT WITH ALARMS SET. VSS. ASSESSMENT COMPLETED PER FLOW SHEET WITH NO ACUTE DISTRESS OBSERVED.
--- NOTE | 2019-08-20 23:00 | NUR ---
REASSESSMENT COMPLETED PER FLOW SHEET WITH NO ACUTE DISTRESS OBSERVED. VSS. TRACH INTACT/SECURE/PATENT AND CONNECTED TO MECH VENT AT ORDERED SETTINGS. HOB UP 30 DEGREES
[2019-08-21] VITALS (35 sets, daily range): BP systolic 106–199; BP diastolic 45–91
--- NOTE | 2019-08-21 01:00 | NUR ---
SEDATED. TRACH INTACT/SECURE/PATENT CONNECTED TO [facility] VENT AT ORDERED SETTINGS. VSS. TURNED AND POSITIONED. ORAL CARE GIVEN. GRAHAM WELL
--- NOTE | 2019-08-21 03:00 | NUR ---
REASSESSMENT COMPLETED PER FLOW SHEET WITH NO ACUTE DISTRESS OBSERVED. VSS
--- NOTE | 2019-08-21 05:00 | NUR ---
SEDATED. TRACH INTACT/SECURE/PAT[facility] AT ORDERED SETTINGS. HAD LARGE INCONT BM.BATHED WITH KUSH/FC CARE GIVEN. LINENS CHANGED. ORAL CARE GIVEN. REPOSITIONED. VSS. GRAHAM WELL.
[2019-08-21 06:11] LABS: MCH 29.8 pg (26.0-34.0); MCHC 33.8 g/dL (31.0-37.0); MEAN PLATELET VOLUME 11.1 fL (7.4-10.4); RDW 18.5 % (11.5-14.5); WBC 19.6 10x3/uL (4.8-10.8)
[2019-08-21 06:23] LABS: APTT 25.6 SECONDS (22.8-39.4)
[2019-08-21 06:36] LABS: ALBUMIN 2.9 g/dL (3.4-5.0); ALKALINE PHOSPHATASE 72 U/L (46-116); BILIRUBIN - TOTAL 1.23 mg/dL (0.2-1.3); CALCIUM 7.9 mg/dL (8.5-10.1); CHLORIDE - SERUM 100 mmol/L (98-107); CREATININE - SERUM 0.6 mg/dL (0.6-1.3); PROTEIN - SERUM 4.7 g/dL (6.4-8.2); SODIUM 140 mmol/L (136-145); UREA NITROGEN 60 mg/dL (7-18); eGFR NON AFRICAN AMERICAN > 90 mL/min (90-120)
[2019-08-21 06:37] LABS: HEMATOCRIT 27.8 % (36.0-48.0); HEMOGLOBIN 9.4 g/dL (12-16); MCV 88.3 fL (80.0-100.0); RBC 3.15 10x6/uL (4.00-5.40)
[2019-08-21 06:45] LABS: ALT (SGPT) 57 U/L (10-68); CALC OSMOLALITY 304 mosm/kg (275-300); GLUCOSE 265 mg/dL (74-106)
--- NOTE | 2019-08-21 09:36 | NUR ---
Consult today to restart tube feeds Bebeto HEATH saw pt on 08/20. Pt was NPO secondary to for trach and peg on 08/20. Recommend to restart Enteral feeds from previous order when okay with MD. HEATH to follow Kaylin Harmon MS RD LD
--- NOTE | 2019-08-21 14:39 | NUR ---
[facility] AT THIS [facility]-CONT TO USE ROTATION ON BED-
--- NOTE | 2019-08-21 18:24 | NUR ---
1700-NOTED NIBP 84 SYS REPEATED 88 SYS-REMOVED NTG OINTMENT-DECREASED FENTANYL TO 200MCG REPOSITIONED TO SUPINE 1750-POSTERIOR CHEST TUBE CONTAINER FULL-REPLACED PER PROTOCOL-20CM SUCTION WITH NOTED AIRLEAK
--- NOTE | 2019-08-21 19:00 | NUR ---
REPORT RECEIVED AND CARE ASSUMED. RECIEVED PATIENT IN BED SEDATED ON VENT. TRACH INTACT/SECURE/PATENT CONNECTED TO MECHANICAL VENT AT ORDERED SETTINGS. HOB UP 30 DEGREES. GT INTACT/SECURE/PATENT WITH TUBE FEEDING INFUSING PER ORDER. RT CHEST TUBES INTACT/SECURE/PATENT CONNECTED TO SUCTION WITH AIR LEAK NOTED IN BOTH. MONITORS CONNECTED TO PATIENT WITH ALARMS SET. VSS. ASSESSMENT COMPLETED PER FLOW SHEET WITH NO ACUTE DISTRESS OBSERVED.
--- NOTE | 2019-08-21 23:00 | NUR ---
SEDATED. TRACH INTACT/SECURE/PATENT CONNECTED TO [facility] VENT WITH SETTINGS ORDERED. VSS. REASSESSMENT COMPLETED PER FLOW SHEET WITH NO ACUTE DISTRESS OBSERVED. ORAL CARE PERFORMED/ TURNED AND REPOSITIONED. GRAHAM WELL
[2019-08-22] VITALS (42 sets, daily range): BP systolic 73–188; BP diastolic 30–85
--- NOTE | 2019-08-22 01:00 | NUR ---
TURNED AND REPOSITIONED. ORAL CARE GIVEN. VSS. GRAHAM WELL
--- NOTE | 2019-08-22 03:00 | NUR ---
REASSESSMENT COMPLETED PER FLOW SHEET WITH NO ACUTE DISTRESS OBSERVED. VSS. ORAL CARE PERFORMED. HOB UP 30 DEGREES. TURNED AND POSITIONED. GRAHAM WELL
--- NOTE | 2019-08-22 05:00 | NUR ---
SEDATED. TRACH INTACT/SECURE/PATENT CONNECTED TO [facility] VENT AT ORDERED SETTINGS. HOB UP 30 DEGREES. VSS
[2019-08-22 05:19] LABS: MCH 30.3 pg (26.0-34.0); MCHC 33.7 g/dL (31.0-37.0); MCV 89.9 fL (80.0-100.0); RDW 18.1 % (11.5-14.5); WBC 15.3 10x3/uL (4.8-10.8)
[2019-08-22 05:23] LABS: HEMATOCRIT 16.9 % (36.0-48.0); HEMOGLOBIN 5.7 g/dL (12-16); PLATELET COUNT 9 10x3/uL (130-400)
[2019-08-22 05:24] LABS: RBC 1.88 10x6/uL (4.00-5.40)
[2019-08-22 05:26] LABS: ALBUMIN 2.7 g/dL (3.4-5.0); ALKALINE PHOSPHATASE 57 U/L (46-116); ALT (SGPT) 43 U/L (10-68); BILIRUBIN - TOTAL 0.94 mg/dL (0.2-1.3); CALC OSMOLALITY 305 mosm/kg (275-300); CALCIUM 7.4 mg/dL (8.5-10.1); CARBON DIOXIDE 36.5 mmol/L (21.0-32.0); CHLORIDE - SERUM 101 mmol/L (98-107); CREATININE - SERUM 0.5 mg/dL (0.6-1.3); GLUCOSE 266 mg/dL (74-106); PROTEIN - SERUM 4.4 g/dL (6.4-8.2); SODIUM 139 mmol/L (136-145); UREA NITROGEN 65 mg/dL (7-18); eGFR NON AFRICAN AMERICAN > 90 mL/min (90-120)
--- NOTE | 2019-08-22 05:26 | NUR ---
DR. BENTON INTERIOR DESIGN PROGRAM CHAIR FOR DR. PRAVEENA CORLEY RE CRITICAL LAB RESULTS
[2019-08-22 05:36] LABS: POTASSIUM - SERUM 3.8 mmol/L (3.5-5.1)
[2019-08-22 05:43] LABS: D-DIMER-QUANTITATIVE 1.58 ug/mLFEU (0.20-0.54)
--- NOTE | 2019-08-22 05:45 | NUR ---
2ND PAGE TO PHYSICIAN RECIPROCATING DRILL OPERATOR FOR DR. GRISSOM VIA ANSWERING SERVICE.
--- NOTE | 2019-08-22 05:50 | NUR ---
SPOKE WITH DR. BENTON REPORTED CRITICAL LAB RESULTS. NEW ORDERS RECEIVED.
--- NOTE | 2019-08-22 06:09 | NUR ---
1st unit PRBC INITIATED.
--- NOTE | 2019-08-22 16:05 | NUR ---
0700-RECIEVED PER FLOW SHEET-PRBC INFUSING VIA L MIDLINE-DR BLANCA PG'D REGARDING CURRENT STATUS AND LAB-NTED NO STOOLS-R LATERAL CHEST [id number] AIRLEAK NOTED-SEROUS DRAINAGE 0815-FAMILY AT BEDSIDE AND CURRENT STATUS GIVEN-CONTINUE MED CODE 0840-PRBC COMPLETED-PLATELET UNIT STARTED ORDERED 52509-FRTRJSZIW COMPLETED NIBP 101/48-VERSED DECREASED TO 4MG AND FENT TO 300MG-TUBE FEEEDING D/C'D NOTED-ASPIRATED SMALL BLOOD CLOTS X2-VIA G TUBE-DR BLANCA MADE AWARE-NOTED MARKED RESISTANCE TO ASPIRATION 0930-DR SMITH AT BEDSIDE AND SPOKE WITH FAMILY REGARDING STATUS CURRENT COURSE OF EVENTS-FAMILY DISCUSSED STRONG DESIRE FOR TERMINAL CARE 1045-PRBC INFUSED-ABG DRAWN AND CALLED TO DR BENTON- 1130-DR BENTON AT BEDSIDE-ORDER RECIVED AND NOTED 1200 FAMILY AT BEDSIDE-QUESTIONS ANSWERED TO [facility] 1300CRYOPRICIPITATE INFUSING -DR BLANCA AT BEDSIDE AND SPOKE WITH PT YOUNGER SON REGARDING CURRENT STATUS GI 1400-DR WOOD AT BEDSIDE-STATUS REPORT GIVEN AND SPOKE WITH YOUNGER SON REGARDING CURRENT STATUS- 1500-INCONTINENT OF DRK MAROON STOOL SMALL AMOUNT -SKIN CARE DONE-BUTT BALM APPLIED-NO PRESSURE POINT OR SKIN BREAK DOWN NOTED-R LATERAL CHESTUBE DRG CHANGED-SUTURES SECURE-QUINTANILLA SECURED 1550-NIBP INCREASED TO 179 SYS -FENT RESTARTED AT 150 MCG FOR PAIN MANAGEMENT SON
--- NOTE | 2019-08-22 19:00 | NUR ---
BEDSIDE REPORT AND SHIFT ASSESSMENT COMPLETE, SEE FLOWSHEET. HR 70'S, NSR ON MONITOR. 02 SAT 97 ON VENT, FIO2 60%. PT SEDATED, UNABLE TO FOLLOW COMMANDS. BENJAMIN TO GRAVITY DRAINAGE, CLEAR YELLOW UOP NOTED. L UPPER ARM MIDLINE PATENT, SEE IV FLOWSHEET. R CT X 2, SEROUS DRAINAGE, AIR LEAK NOTED, DRESSING CDI. FSBS 201, INSULIN ADMINISTERED PER MAR. WILL CONTINUE TO MONITOR.
--- NOTE | 2019-08-22 20:00 | NUR ---
PEG TUBE FLUSHED, NO CLOTTING NOTED IN TUBE. FAMILY AT BEDSIDE, UPDATE GIVEN.
--- NOTE | 2019-08-22 21:00 | NUR ---
MEDS GIVEN VIA TUBE. REPOSITIONED FOR COMFORT. WILL CONTINUE TO MONITOR.
--- NOTE | 2019-08-22 22:30 | NUR ---
B/P 72/30 MAP 40, FENTANYL AND VERSED TITRATED DOWN.
--- NOTE | 2019-08-22 22:45 | NUR ---
B/P 70/29, MAP 39. VERSED AND FENTANYL TURNED OFF. WILL CONTINUE TO MONITOR.
--- NOTE | 2019-08-22 23:00 | NUR ---
REASSESSMENT COMPLETE, SEE FLOWSHEET. PRESSURE 93/35 MAP OF 53, SEDATION TURNED OFF. RED SPOTS NOTED ON FOREHEAD, WARM TO TOUCH. NO OTHER SIGNS OF REDNESS. TEMP 98.8, NO SIGNS OF FEVER NOTED. L UPPER ARM MIDLINE CATHETER PATENT, DRESSING CDI. OTHER VSS. PT STILL UNRESPONSIVE AND UNABLE TO FOLLOW COMMANDS. WILL CONTINUE TO MONITOR.
[2019-08-23] VITALS (25 sets, daily range): BP systolic 132–178; BP diastolic 58–88
--- NOTE | 2019-08-23 | NUR ---
B/P INCREASING, SEDATION STARTED BACK.
--- NOTE | 2019-08-23 01:00 | NUR ---
REPOSITIONING AND ORAL CARE COMPLETE.
--- NOTE | 2019-08-23 03:00 | NUR ---
REASSESSMENT COMPLETE, SEE FLOWSHEET. ORAL CARE AND REPOSITIONING COMPLETE. WILL MONITOR.
--- NOTE | 2019-08-23 05:00 | NUR ---
BLOODY STOOL DIARRHEA BM. COMPLETE BED BATH, BENJAMIN CARE, AND LINEN CHANGE DONE. ORAL CARE AND REPOSITIONING COMPLETE.
[2019-08-23 06:30] LABS: HEMATOCRIT 20.9 % (36.0-48.0); MCH 28.7 pg (26.0-34.0); MCHC 33.5 g/dL (31.0-37.0); RDW 17.1 % (11.5-14.5); WBC 12.8 10x3/uL (4.8-10.8)
[2019-08-23 06:36] LABS: RBC 2.44 10x6/uL (4.00-5.40)
[2019-08-23 06:37] LABS: MCV 85.7 fL (80.0-100.0)
[2019-08-23 06:51] LABS: APTT 23.2 SECONDS (22.8-39.4)
[2019-08-23 06:52] LABS: ALBUMIN 3.2 g/dL (3.4-5.0); ALKALINE PHOSPHATASE 60 U/L (46-116); ALT (SGPT) 44 U/L (10-68); BILIRUBIN - TOTAL 1.56 mg/dL (0.2-1.3); CALCIUM 7.9 mg/dL (8.5-10.1); CARBON DIOXIDE 39.1 mmol/L (21.0-32.0); CHLORIDE - SERUM 102 mmol/L (98-107); CREATININE - SERUM 0.6 mg/dL (0.6-1.3); PROTEIN - SERUM 4.9 g/dL (6.4-8.2); SODIUM 143 mmol/L (136-145); UREA NITROGEN 57 mg/dL (7-18); eGFR NON AFRICAN AMERICAN > 90 mL/min (90-120)
[2019-08-23 07:15] LABS: CALC OSMOLALITY 306 mosm/kg (275-300); GLUCOSE 205 mg/dL (74-106); POTASSIUM - SERUM 3.2 mmol/L (3.5-5.1)
--- NOTE | 2019-08-23 07:43 | NUR ---
DR. SMITH IN UNIT. NOTIFIED OF ELEVATED BP. OKAY TO GIVE BETAPACE EARLY PER DR. SMITH.
--- NOTE | 2019-08-23 08:09 | NUR ---
H&H REPORTED TO DR. GRISSOM. ORDERED 1UNIT PRBC'S. IF MORE BLEEDING NOTED. ORDER 1 UNIT OF PLATELETS.
--- NOTE | 2019-08-23 10:16 | NUR ---
VERSED DECREASED TO 1MG/H AND FENTANYL 100MCG/KG/MIN PER DR. ÁLVAREZ.
--- NOTE | 2019-08-23 10:36 | NUR ---
NORVASC 5MG PO TO BE GIVEN PER DR. ÁLVAREZ IF BLOOD PRESSURE CONTINUES HIGH AFTER LASIX HAS BE GIVEN.
--- NOTE | 2019-08-23 11:41 | NUR ---
BP 195/78. NORVASC GIVEN PER DR. ÁLVAREZ
--- NOTE | 2019-08-23 13:41 | NUR ---
Nutrition Follow-up: S/p PEG/trach on 08/19. No TF currently running. RN reports possible GI bleed. Diet: NPO Wt: 170.8# (08/23); 180.7# (08/18); 146.6# (07/27) Last BM: 08/23 Labs noted: Glu 205, K+ 3.2, Ca 7.9, Alb 3.2 Meds noted: Lasix, Humalog, Solumedrol, Albumin -Rec restart Pulmocare when medically feasible. -Monitor wt. -RD following.
--- NOTE | 2019-08-23 16:06 | NUR ---
DR. ÁLVAREZ NOTIFIED ABOUT BP >160S. ORDERS RECEIVED.
--- NOTE | 2019-08-23 16:36 | NUR ---
SECOND UNIT OF PRBC'S COMPLETED. SON AT BEDSIDE.
--- NOTE | 2019-08-23 16:43 | NUR ---
HYDROLYZINE GIVEN PER ORDERS.
--- NOTE | 2019-08-23 17:41 | NUR ---
DR. ÁLVAREZ NOTIFIED OF K+ 2.8. ORDERS RECEIVED. ORDERED TO INCREASE FENTANYL TO 150MCG/HR
--- NOTE | 2019-08-23 18:00 | NUR ---
RECHECK H&H ONLY IF BLOODY STOOLS ARE NOTED. OTHERWISE RECHECK IN AM PER DR. GRISSOM.
--- NOTE | 2019-08-23 19:00 | NUR ---
BEDSIDE REPORT AND SHIFT ASSESSMENT COMPLETE, SEE FLOWSHEET. PT SEDATED, OPENS EYES DOES NOT FOLLOW COMMANDS. VSS, NO SIGNS OF ACUTE DISTRESS NOTED. L UPPER ARM MIDLINE CATHETER PATENT, SEE IV FLOWSHEET. ORAL CARE AND REPOSITIONING COMPLETE.
--- NOTE | 2019-08-23 19:30 | NUR ---
CRYO TRANSFUSION STARTED.
--- NOTE | 2019-08-23 20:30 | NUR ---
DR RUIZ AT BEDSIDE, UPDATE GIVEN. GAVE THE OK TO START TUBE FEEDING BACK.
--- NOTE | 2019-08-23 21:00 | NUR ---
MEDS GIVEN PER MAR VIA PEG TUBE. POTASSIUM INFUSING PER ELECTROLYTE PROTOCOL, WILL RECHECK LAB AFTER INFUSION IS COMPLETE.
--- NOTE | 2019-08-23 23:00 | NUR ---
REASSESSMENT COMPLETE, SEE FLOWSHEET. HR 48, SINUS CHARLIE ON MONITOR. WILL CONTINUE PLAN OF CARE.
--- NOTE | 2019-08-23 23:30 | NUR ---
POTASSIUM RIDER INFUSION COMPLETE, ORDER PLACED FOR POT REDRAW IN TWO HOURS.
[2019-08-24] VITALS (29 sets, daily range): BP systolic 89–172; BP diastolic 44–83
--- NOTE | 2019-08-24 01:00 | NUR ---
MEDS GIVEN PER MAR. VSS, NO SIGNS OF DISTRESS NOTED. PT SEDATED, MORE ALERT AND FOLLOWING COMMANDS. WILL SQUEEZE HANDS, UNABLE TO SHAKE HEAD YES AND NO. WILL CONTINUE TO MONITOR.
--- NOTE | 2019-08-24 03:00 | NUR ---
REASSESSMENT COMPLETE, SEE FLOWSHEET.
--- NOTE | 2019-08-24 04:40 | NUR ---
BATH, BENJAMIN CARE AND PARTIAL LINEN CHANGE COMPLETE. CT DRESSING CHANGED, SITE WNL.
--- NOTE | 2019-08-24 06:30 | NUR ---
ALESHIA WITH LAB UNABLE TO DRAW FOR AM LABS, AM LABS DRAWN FROM L UPPER ARM MIDLINE AND SENT TO LAB.
[2019-08-24 06:41] LABS: MCH 28.7 pg (26.0-34.0); MCHC 33.8 g/dL (31.0-37.0); MEAN PLATELET VOLUME 10.9 fL (7.4-10.4); RDW 16.2 % (11.5-14.5); WBC 13.1 10x3/uL (4.8-10.8)
[2019-08-24 06:44] LABS: HEMATOCRIT 28.4 % (36.0-48.0); HEMOGLOBIN 9.6 g/dL (12-16); PLATELET COUNT 97 10x3/uL (130-400); RBC 3.34 10x6/uL (4.00-5.40)
[2019-08-24 06:59] LABS: APTT 24.9 SECONDS (22.8-39.4)
[2019-08-24 07:01] LABS: ALBUMIN 3.9 g/dL (3.4-5.0); ALKALINE PHOSPHATASE 74 U/L (46-116); ALT (SGPT) 54 U/L (10-68); BILIRUBIN - TOTAL 2.67 mg/dL (0.2-1.3); CALC OSMOLALITY 291 mosm/kg (275-300); CALCIUM 8.1 mg/dL (8.5-10.1); CARBON DIOXIDE 34.8 mmol/L (21.0-32.0); CHLORIDE - SERUM 99 mmol/L (98-107); CREATININE - SERUM 0.7 mg/dL (0.6-1.3); GLUCOSE 205 mg/dL (74-106); POTASSIUM - SERUM 3.7 mmol/L (3.5-5.1); PROTEIN - SERUM 5.7 g/dL (6.4-8.2); SODIUM 138 mmol/L (136-145); eGFR NON AFRICAN AMERICAN 87 mL/min (90-120)
[2019-08-24 07:06] LABS: UREA NITROGEN 40 mg/dL (7-18)
--- NOTE | 2019-08-24 09:21 | NUR ---
AM MEDS GIVEN THROUGH PEG TUBE. FAMILY AT BEDSIDE. WILL CONTINUE TO MONITOR.
--- NOTE | 2019-08-24 09:50 | NUR ---
DR. ÁLVAREZ AT BEDSIDE. REDUCED FIO2 TO 40% PER DR. ÁLVAREZ. OKAY TO RESTART TUBE FEEDINGS.
--- NOTE | 2019-08-24 10:01 | NUR ---
Nutrition Follow-up: Ok to restart TF per surgery. Wt: 160.9# (08/24); 170.8# (08/23); 146.6# (07/27) Last BM: 08/23 Labs noted: Glu 205, Ca 8.1 Meds noted: Solumedrol, Lasix, Humalog, D5W @ 75, Albumin -Restart Pulmocare @ 15 mL/hr and increase by 10 mL q 6 hrs to previous goal rate of 40 mL/hr; flushes per MD (noted 150 mL q 6 hrs ordered). -RD following.
[2019-08-24 10:17] LABS: PLATELET ESTIMATE DECREASED
--- NOTE | 2019-08-24 12:47 | NUR ---
RECEIVED BEDSIDE REPORT ON PATIENT AND ASSUMED CARE. PATEINT SEDATED ON VENT, VIA TRACH COLLAR, VENT SETTINGS ARE TV 500, A/C 22, PEEP 4, FIO2 40%, SPO2 - 100%. CM - SB RATE 41-45, NO ECTOPY NOTED, RR 22, BBS CLEAR AND EQUAL, CHEST TUBE X 2 TO RIGHT LATERAL AND RIGHT ANTERIOR CHEST, TO 20 CM WALL SUCTION WITH POSITIVE AIR LEAK NOTED TO BOTH. SEORUS DRAINAGE NOTED TO BOTH 20 TO ANTERIOR AND 70 TO LATERAL. BENJAMIN CATH WITH CLEAR YELLOW UOP 340 ML. MIDLINE IV TO LEFT UPPER ARM WITH D5W INFUSING AT 75 CC/HR, PROTONIX AT 10 MG/HR, VERSED AT 1 MG/HR AND FENTANYL AT 150 MCG/HR. BILATERAL UPPER EXTREMITIES NOTED TO HAVE WEEPING EDEMA. VSS.
--- NOTE | 2019-08-24 13:13 | NUR ---
PATIENT TURNED AND REPOSTIONED IN BED. VSS.
--- NOTE | 2019-08-24 14:18 | NUR ---
PER DR. NEWTON NO WATER FLUSHES FOR NOW WITH TUBE FEEDING. TUBE FEEDING STARTED PULMOCARE AT 15 ML PER HOUR (GOAL OF 40 ML/HR) TO INCREASE 10 ML Q6H.
--- NOTE | 2019-08-24 15:00 | NUR ---
PATIENT REASSESSMENT COMPLETED. VSS. TURNED AND REPOSTIONED IN BED.
--- NOTE | 2019-08-24 16:50 | NUR ---
PATIENTS SON AT ROOM UPDATED AND QUESTIONS ANSWERED. VSS.
--- NOTE | 2019-08-24 16:56 | NUR ---
DR. GRISSOM AT ROOM UPDATED AND EXAMINES PATIENT. DISCUSSES WITH PATIENTS SON PATIENTS CONDITION. TURNED AND REPOSITIONED IN BED. VSS.
--- NOTE | 2019-08-24 19:00 | NUR ---
BEDSIDE REPORT AND SHIFT ASSESSMENT COMPLETE, SEE FLOWSHEET. VSS, NO SIGNS OF ACUTE DISTRESS NOTED. PT SEDATED, FOLLOWS COMMANDS. L UPPER ARM MIDLINE PATENT, DRESSING CDI. R CT X 2 DRESSING CDI, AIR LEAK NOTED IN BOTH. ORAL CARE AND REPOSITIONING COMPLETE. WILL CONTINUE PLAN OF CARE.
--- NOTE | 2019-08-24 20:00 | NUR ---
TUBE FEED RESIDUAL 5 ML, TUBE FEEDING RATE INCREASED TO 25 ML.
--- NOTE | 2019-08-24 21:00 | NUR ---
MEDS GIVEN PER OCT. PT REPOSITIONED FOR COMFORT.
--- NOTE | 2019-08-24 21:50 | NUR ---
DR RUIZ AT BEDSIDE, UPDATE GIVEN. NO NEW ORDERS RECEIVED.
--- NOTE | 2019-08-24 23:00 | NUR ---
REASSESSMENT COMPLETE, SEE FLOWSHEET. VSS, NO SIGNS OF DISTRESS NOTED. HR 50 ON MONITOR, SINUS CHARLIE. PT SEDATED, FOLLOWS COMMANDS. WILL CONTINUE PLAN OF CARE.
[2019-08-25] VITALS (28 sets, daily range): BP systolic 100–192; BP diastolic 57–90
--- NOTE | 2019-08-25 00:40 | NUR ---
850 ML CLEAR YELLOW UOP EMPTIED FROM BENJAMIN, BENJAMIN CATHETER CARE COMPLETE.
--- NOTE | 2019-08-25 01:00 | NUR ---
REPOSITIONING AND ORAL CARE COMPLETE.
--- NOTE | 2019-08-25 01:45 | NUR ---
B/P 192/. PRN MEDS GIVEN PER MAR. WILL MONITOR.
--- NOTE | 2019-08-25 03:00 | NUR ---
REASSESSMENT COMPLETE, SEE FLOWSHEET. PT AGITATED, REPOSITIONED FOR COMFORT.
--- NOTE | 2019-08-25 04:00 | NUR ---
TUBE FEED RESIDUAL 5 ML, ADVANCED FEED RATE TO 35 ML.
--- NOTE | 2019-08-25 04:30 | NUR ---
L UPPER ARM MIDLINE DRESSING CHANGED. SKIN WNL. IV PATENT, SEE IV FLOWSHEET.
[2019-08-25 04:32] LABS: HEMATOCRIT 27.9 % (36.0-48.0); HEMOGLOBIN 9.4 g/dL (12-16); MCHC 33.7 g/dL (31.0-37.0); MCV 86.1 fL (80.0-100.0); MEAN PLATELET VOLUME 11.6 fL (7.4-10.4); RBC 3.24 10x6/uL (4.00-5.40)
[2019-08-25 04:46] LABS: WBC 8.7 10x3/uL (4.8-10.8)
[2019-08-25 04:48] LABS: APTT 22.3 SECONDS (22.8-39.4)
[2019-08-25 05:08] LABS: ALBUMIN 3.8 g/dL (3.4-5.0); ALKALINE PHOSPHATASE 76 U/L (46-116); ALT (SGPT) 62 U/L (10-68); BILIRUBIN - TOTAL 1.93 mg/dL (0.2-1.3); CALC OSMOLALITY 285 mosm/kg (275-300); CALCIUM 8.1 mg/dL (8.5-10.1); CARBON DIOXIDE 31.9 mmol/L (21.0-32.0); CHLORIDE - SERUM 96 mmol/L (98-107); CREATININE - SERUM 0.7 mg/dL (0.6-1.3); GLUCOSE 212 mg/dL (74-106); POTASSIUM - SERUM 3.6 mmol/L (3.5-5.1); PROTEIN - SERUM 5.8 g/dL (6.4-8.2); SODIUM 134 mmol/L (136-145); UREA NITROGEN 45 mg/dL (7-18); eGFR NON AFRICAN AMERICAN 87 mL/min (90-120)
--- NOTE | 2019-08-25 06:45 | NUR ---
MEDS GIVEN PER MAR.
--- NOTE | 2019-08-25 08:21 | NUR ---
STAFF FOR DR GRISSOM IN ROOM TO SEE PATIENT. SPEAKING WITH SON AT THIS TIME.
--- NOTE | 2019-08-25 11:48 | NUR ---
Nutrition Follow-up: TF restarted yesterday; tolerating at 35 mL/hr at time of visit this AM with plans to increase to goal rate of 40 mL/hr today. Per RN note yesterday, no water flushes with TF for now per Dr. Heath. Noted I/O yesterday -[id number]. Diet: Pulmocare goal rate of 40 mL/hr Wt: 156.5# (08/25); 160.9# (08/24); 147# (07/26) Last BM: 08/25 Labs noted: Na 134, Glu 212, Ca 8.1 Meds noted: Solumedrol, Lasix, Humalog, D5W @ 75, Albumin, Miralax -Continue to advance TF to goal rate; flushes per MD. -Monitor wt. -RD following.
--- NOTE | 2019-08-25 12:36 | NUR ---
PT RESTING WITH EYES CLOSED AT THIS TIME. FAMILY IN ROOM.
--- NOTE | 2019-08-25 15:31 | NUR ---
DR NEWTON BY TO SEE PATIENT. REVIEWED TUBE FEEDINGS. DOES NOT WANT ANY FLUSHES ORDERED
--- NOTE | 2019-08-25 17:08 | NUR ---
DR GRISSOM CALLED TO CHECK IN ON PATIENT. REVIEWED LABS. NO NEW ORDERS RECEIVED.
--- NOTE | 2019-08-25 19:00 | NUR ---
BEDSIDE REPORT AND SHIFT ASSESSMENT COMPLETE, SEE FLOWSHEET. VSS, NO SIGNS OF ACUTE DISTRESS NOTED. PT SEDATED, OPENS EYES AND FOLLOWS COMMANDS. BILAT UPPER ARM SWELLING AND BRUISING NOTED. HR 60, NSR ON MONITOR. R ANTERIOR AND R LATERAL CT IN PLACE, DRESSING CDI, AIR LEAK NOTED ON BOTH. RT AT BEDSIDE PERFORMING TRACH CARE. WILL CONTINUE TO MONITOR.
--- NOTE | 2019-08-25 21:00 | NUR ---
FENTANYL WREATH AND GARLAND MAKER SYRINGE CHANGED, SEE WREATH AND GARLAND MAKER FLOWSHEET. MEDS GIVEN VIA PEG TUBE. REPOSITIONED FOR COMFORT. WILL MONITOR.
--- NOTE | 2019-08-25 23:00 | NUR ---
REASSESSMENT COMPLETE, SEE FLOWSHEET. REPOSITIONING COMPLETE.
[2019-08-26] VITALS (25 sets, daily range): BP systolic 123–181; BP diastolic 53–88; Ht 162.6 cm; Wt 70.9 kg
--- NOTE | 2019-08-26 01:00 | NUR ---
REPOSITIONING COMPLETE. VSS, NO SIGNS OF DISTRESS NOTED. PT SEDATED, AWAKE AND CALM.
--- NOTE | 2019-08-26 03:00 | NUR ---
REASSESSMENT COMPLETE, SEE FLOWSHEET. BATH, BENJAMIN CARE, AND LINEN CHANGE COMPLETE.
--- NOTE | 2019-08-26 04:00 | NUR ---
PT GRIMACING, WHEN ASKED IF IN PAIN NODS HEAD YES. REPOSITIONED FOR COMFORT.
[2019-08-26 05:07] LABS: HEMATOCRIT 28.3 % (36.0-48.0); HEMOGLOBIN 9.5 g/dL (12-16); MCH 29.1 pg (26.0-34.0); MCHC 33.6 g/dL (31.0-37.0); MCV 86.8 fL (80.0-100.0); MEAN PLATELET VOLUME 10.7 fL (7.4-10.4); RBC 3.26 10x6/uL (4.00-5.40); RDW 16.3 % (11.5-14.5); WBC 7.7 10x3/uL (4.8-10.8)
[2019-08-26 05:14] LABS: APTT 26.7 SECONDS (22.8-39.4)
[2019-08-26 05:24] LABS: ALBUMIN 3.9 g/dL (3.4-5.0); ALKALINE PHOSPHATASE 86 U/L (46-116); ALT (SGPT) 65 U/L (10-68); BILIRUBIN - TOTAL 1.97 mg/dL (0.2-1.3); CALC OSMOLALITY 291 mosm/kg (275-300); CALCIUM 8.1 mg/dL (8.5-10.1); CARBON DIOXIDE 33.6 mmol/L (21.0-32.0); CHLORIDE - SERUM 97 mmol/L (98-107); CREATININE - SERUM 0.6 mg/dL (0.6-1.3); GLUCOSE 192 mg/dL (74-106); PROTEIN - SERUM 5.7 g/dL (6.4-8.2); SODIUM 138 mmol/L (136-145); UREA NITROGEN 44 mg/dL (7-18); eGFR NON AFRICAN AMERICAN > 90 mL/min (90-120)
[2019-08-26 11:51] LABS: FIBRINOGEN < 60 mg/dL (239-481)
--- NOTE | 2019-08-26 19:30 | NUR ---
PT OPENS EYES, SEDATED, TRACH PATENT TO VENT, FINE CRACKLES NOTED BILAT, LEFT MIDLINE INTACT WITH IVF'S INFUSING, PEG INTACT WITH PULMOCARE @ 40 CC/HR/ BENJAMIN PATENT TO BSD, RIGHT CHEST TUBES X2 TO 20 CM SUCTION, BILAT SWR IN USE, NO DISTRESS NOTED
--- NOTE | 2019-08-26 21:00 | NUR ---
OPENS EYES TO STIMULI, NO CHANGES NOTED, VITALS STABLE
--- NOTE | 2019-08-26 21:43 | MORECARE ---
CASE MANAGEMENT DISCHARGE SUMMARY PATIENT: ALESHIA MADRIGAL UNIT: [id number] ADM DATE: 07/26/19 AGE: 74 : 47 SEX: F ROOM/BED: D[facility] AUTHOR: HOLLIE,DOC PHYSICIAN: REFERRING PHYSICIAN: CHELSEA NEWTON MD DATE OF SERVICE: 08/26/19 Discharge Plan Patient Name: ALESHIA MADRIGAL Facility: [facility]:[place] : 1945 Planned Disposition: Home Anticipated Discharge Date: Discharge Date: Expected LOS: Initial Reviewer: [email or web address] Initial Review Date: 07/26/2019 Generated: 08/26/19 10:43 pm Comments DCP- Discharge Planning Updated by [email or web address]: Bety Bell on 08/26/19 8:[address] CM to discuss with Dr. Newton if patient is LTACH appropriate or stable enough for transport to LTACH facility. CM will continue to follow and assist as needed with discharge planning / needs DCP- Discharge Planning Updated by [email or web address]: Bety Bell on 07/28/19 3:[address] Late Entry 07/27/19 Patient Name: ALESHIA MADRIGAL Admission Status: Elective Accout number: [id number] Admission Date: 07-26-2019 : 1945 Admission Diagnosis:MALIGNANT NEOPLASM OF UPPER LOBE, RIGHT BRONCHUS OR BUD Attending: CHELSEA NEWTON Current LOS: 2 Anticipated DC Date: Planned Disposition: Home Primary Insurance: MEDICARE A & B Discharge Planning Comments: CM met with patient to complete initial dc planning assessment. CM educated patient on the CM role and verbal consent given by patient to complete assessment. Patient lives at home alone where she is independent with her care. At discharge patient plans to return home and feels this is a safe discharge. CM discussed availability of home health, rehab services, and medical equipment. Her family will drive her home upon discharge. Patient may need walk test if still requiring 02 @ discharge. Patient denied known discharge needs at this time. CM will continue to follow and will assist as needed with dc plans/needs. Greaser Helper: Bety Bell DCPIA - Discharge Planning Initial Assessment Updated by [email or web address]: Bety Bell on 07/28/19 4:15 pm * Is the patient Alert and Oriented? Yes * How many steps to enter\exit or inside your home? * PCP Evens - @ [facility] * Pharmacy [facility] * Preadmission Environment Home Alone * ADLs Independent * Equipment None * List name and contact numbers for known caregivers / representatives who currently or will assist patient after discharge: NYLA PUENTES - [phone] * Verbal permission to speak to the caregivers and representatives has been obtained from the patient. Yes * Community resources currently utilized None * Additional services required to return to the preadmission environment? No * Can the patient safely return to the preadmission environment? Yes * Has this patient been hospitalized within the prior 30 days at any hospital? No Last DP export: 08/09/19 3:38 Patient Name: ALESHIA MADRIGAL Page [id number] at 2143 All edits/amendments must be made on the electronic document DICTATION DATE: 08/26/192141 WATER TRAINER: KEVIN 08/26/192141 RPT#: [id number] DC DATE: STATUS: ADM IN [facility] [address] [place] [address] END OF REPORT
--- NOTE | 2019-08-26 23:00 | NUR ---
PT AWAKE AT TIMES WITH EYES OPEN, NO C/O, VITALS STABLE, WILL CONT TO MONITOR
[2019-08-27] VITALS (31 sets, daily range): BP systolic 110–174; BP diastolic 56–84
--- NOTE | 2019-08-27 01:30 | NUR ---
PT BATHED PER STAFF, LOOSE BM X1, REPOSITIONED FOR COMFORT, WILL CONT TO MONITOR
--- NOTE | 2019-08-27 03:15 | NUR ---
PT SLEEPING WITH NO DISTRESS NOTED, VITALS STABLE
--- NOTE | 2019-08-27 05:00 | NUR ---
PT RESTING QUIETLY, AM LABS DRAWN WITH ABG'S BY RT, WILL CONT TO MONITOR
[2019-08-27 05:17] LABS: APTT 29.4 SECONDS (22.8-39.4)
[2019-08-27 05:20] LABS: ALBUMIN 3.7 g/dL (3.4-5.0); ALKALINE PHOSPHATASE 78 U/L (46-116); ALT (SGPT) 56 U/L (10-68); BILIRUBIN - TOTAL 1.69 mg/dL (0.2-1.3); CALC OSMOLALITY 300 mosm/kg (275-300); CALCIUM 7.9 mg/dL (8.5-10.1); CARBON DIOXIDE 36.1 mmol/L (21.0-32.0); CHLORIDE - SERUM 103 mmol/L (98-107); CREATININE - SERUM 0.6 mg/dL (0.6-1.3); GLUCOSE 167 mg/dL (74-106); PROTEIN - SERUM 5.8 g/dL (6.4-8.2); SODIUM 143 mmol/L (136-145); UREA NITROGEN 47 mg/dL (7-18); eGFR NON AFRICAN AMERICAN > 90 mL/min (90-120)
[2019-08-27 05:23] LABS: POTASSIUM - SERUM 2.6 mmol/L (3.5-5.1)
[2019-08-27 05:47] LABS: HEMATOCRIT 26.3 % (36.0-48.0); HEMOGLOBIN 8.6 g/dL (12-16); MCH 29.3 pg (26.0-34.0); MCHC 32.7 g/dL (31.0-37.0); RBC 2.94 10x6/uL (4.00-5.40); RDW 16.7 % (11.5-14.5)
[2019-08-27 05:53] LABS: MCV 89.5 fL (80.0-100.0); WBC 3.7 10x3/uL (4.8-10.8)
[2019-08-27 10:10] LABS: FUNGUS MYCOLOGY CULTURE Final report (())
--- NOTE | 2019-08-27 11:13 | NUR ---
Nutrition Follow-up: Tolerating TF with no residual this AM per RN. Noted I/O -9.5 cc (08/26). Diet: Pulmocare @ 40 Wt: 148.8# (08/27); 156.5# (08/25); 147# (07/26) Last BM: 08/27 Labs noted: K+ 4.3, Glu 167, Ca 7.9, Alb 3.7, Na 143 Meds noted: Solumedrol, KCl, Colace, Lasix, Humalog, Alb -Continue current TF as tolerated; flushes per MD. -Monitor wt; noted wt changes but diuresing. -RD following.
--- NOTE | 2019-08-27 12:23 | MORECARE ---
CASE MANAGEMENT DISCHARGE SUMMARY PATIENT: ALESHIA MADRIGAL UNIT: [id number] ADM DATE: 07/26/19 AGE: 74 : 47 SEX: F ROOM/BED: [facility] AUTHOR: HOLLIE,DOC PHYSICIAN: REFERRING PHYSICIAN: CHELSEA NEWTON MD DATE OF SERVICE: 08/27/19 Discharge Plan Patient Name: ALESHIA MADRIGAL Facility: [facility]:[place] : 1945 Planned Disposition: Home Anticipated Discharge Date: Discharge Date: Expected LOS: Initial Reviewer: [email or web address] Initial Review Date: 07/26/2019 Generated: 08/27/19 1:22 pm Comments DCP- Discharge Planning Updated by [email or web address]: Shavon Vyas on 08/27/19 11:[address] CM spoke with Dr. Newton about anticipation of DCP needs. Dr. Newton anticipates that once air leaks are resolved (chest tubes x2) patient will likely be ready for rehab. CM will continue to follow and assist as needed. DCP- Discharge Planning Updated by [email or web address]: Bety Bell on 08/26/19 8:[address] CM to discuss with Dr. Newton if patient is LTACH appropriate or stable enough for transport to LTACH facility. CM will continue to follow and assist as needed with discharge planning / needs DCP- Discharge Planning Updated by [email or web address]: Bety Bell on 07/28/19 3:[address] Late Entry 07/27/19 Patient Name: ALESHIA MADRIGAL Admission Status: Elective Accout number: [id number] Admission Date: 07-26-2019 : 1945 Admission Diagnosis:MALIGNANT NEOPLASM OF UPPER LOBE, RIGHT BRONCHUS OR BUD Attending: CHELSEA NEWTON Current LOS: 2 Anticipated DC Date: Planned Disposition: Home Primary Insurance: MEDICARE A & B Discharge Planning Comments: CM met with patient to complete initial dc planning assessment. CM educated patient on the CM role and verbal consent given by patient to complete assessment. Patient lives at home alone where she is independent with her care. At discharge patient plans to return home and feels this is a safe discharge. CM discussed availability of home health, rehab services, and medical equipment. Her family will drive her home upon discharge. Patient may need walk test if still requiring 02 @ discharge. Patient denied known discharge needs at this time. CM will continue to follow and will assist as needed with dc plans/needs. Principal Web Developer: Bety Bell DCPIA - Discharge Planning Initial Assessment Updated by [email or web address]: Bety Bell on 07/28/19 4:15 pm * Is the patient Alert and Oriented? Yes * How many steps to enter\exit or inside your home? * PCP Lei - @ [facility] * Pharmacy [facility] * Preadmission Environment Home Alone * ADLs Independent * Equipment None * List name and contact numbers for known caregivers / representatives who currently or will assist patient after discharge: NYLA GONZALEZ - DHAVAL - [phone] * Verbal permission to speak to the caregivers and representatives has been obtained from the patient. Yes * Community resources currently utilized None * Additional services required to return to the preadmission environment? No * Can the patient safely return to the preadmission environment? Yes * Has this patient been hospitalized within the prior 30 days at any hospital? No Last DP export: 08/26/19 8:43 p Patient Name: ALESHIA MADRIGAL Page 30005 at 1223 All edits/amendments must be made on the electronic document DICTATION DATE: 08/27/191221 PRODUCT MARKETING SPECIALIST: KEVIN 08/27/191221 RPT#: [id number] DC DATE: STATUS: ADM IN [facility] [address] [place] [address] END OF REPORT
--- NOTE | 2019-08-27 19:15 | NUR ---
PT OPENS EYES, DENIES PAIN, TRACH PATENT TO VENT, RIGHT CHEST TUBE X2 INTACT TO 30 CM SUCTION, PEG INTACT WITH PULMOCARE @ 40 CC/HR, LEFT MIDLINE INTACT WITH IVF'S INFUSING, BENJAMIN PATENT TO BSD, BILAT SWR IN USE, GAIL'S TO BILAT LOWER LEGS, NO DISTRESS NOTED
--- NOTE | 2019-08-27 19:18 | NUR ---
1238: FENTANYL DC'D PER ORDER DR. NEWTON. PERCOCET GIVEN FOR PAIN.
--- NOTE | 2019-08-27 21:00 | NUR ---
PT RESTING QUIETLY WITH NO CHANGES, WILL CONT TO MONITOR
--- NOTE | 2019-08-27 22:00 | NUR ---
DRESSINGS CHANGED TO RIGHT CHEST TUBES X2, PT TOLERATED WELL
[2019-08-28] VITALS (25 sets, daily range): BP systolic 104–167; BP diastolic 45–85
--- NOTE | 2019-08-28 | NUR ---
PT RESTING QUIETLY, OPENS EYES TO STIMULI, DENIES PAIN, VITALS STABLE
--- NOTE | 2019-08-28 02:00 | NUR ---
pt awake at times, no distress noted, will cont to monitor
--- NOTE | 2019-08-28 03:30 | NUR ---
pt bathed per staff, tolerated well, denies pain, vitals stable
--- NOTE | 2019-08-28 05:00 | NUR ---
BM X1, DARK L;OOSE STOOL, CLEANED PER STAFF, NO DISTRESS NOTED, VITALS STABLE
[2019-08-28 07:44] LABS: BASOPHILS 0.3 % (0-2); EOSINOPHILS 0.9 % (0-7); HEMATOCRIT 28.1 % (36.0-48.0); HEMOGLOBIN 8.9 g/dL (12-16); IMMATURE GRANULOCYTES 0.3 % (0-5); LYMPHOCYTES 6.6 % (15-50); MCH 28.6 pg (26.0-34.0); MCHC 31.7 g/dL (31.0-37.0); MCV 90.4 fL (80.0-100.0); MONOCYTES 4.3 % (2-11); NEUTROPHILS 87.6 % (40-80); PLATELET COUNT 102 10x3/uL (130-400); RBC 3.11 10x6/uL (4.00-5.40); RDW 17.6 % (11.5-14.5); WBC 3.5 10x3/uL (4.8-10.8)
[2019-08-28 08:02] LABS: ALBUMIN 3.7 g/dL (3.4-5.0); ALKALINE PHOSPHATASE 69 U/L (46-116); ALT (SGPT) 53 U/L (10-68); BILIRUBIN - TOTAL 1.48 mg/dL (0.2-1.3); CALC OSMOLALITY 307 mosm/kg (275-300); CALCIUM 8.2 mg/dL (8.5-10.1); CARBON DIOXIDE 34.7 mmol/L (21.0-32.0); CHLORIDE - SERUM 105 mmol/L (98-107); CREATININE - SERUM 0.6 mg/dL (0.6-1.3); GLUCOSE 172 mg/dL (74-106); POTASSIUM - SERUM 3.1 mmol/L (3.5-5.1); SODIUM 147 mmol/L (136-145); UREA NITROGEN 47 mg/dL (7-18); eGFR NON AFRICAN AMERICAN > 90 mL/min (90-120)
[2019-08-28 08:12] LABS: APTT 29.4 SECONDS (22.8-39.4)
[2019-08-28 16:14] LABS: CALC OSMOLALITY 306 mosm/kg (275-300); CALCIUM 7.8 mg/dL (8.5-10.1); CARBON DIOXIDE 34.2 mmol/L (21.0-32.0); CHLORIDE - SERUM 107 mmol/L (98-107); CREATININE - SERUM 0.7 mg/dL (0.6-1.3); GLUCOSE 178 mg/dL (74-106); POTASSIUM - SERUM 4.2 mmol/L (3.5-5.1); SODIUM 146 mmol/L (136-145); UREA NITROGEN 47 mg/dL (7-18); eGFR NON AFRICAN AMERICAN 87 mL/min (90-120)
--- NOTE | 2019-08-28 19:23 | NUR ---
PT AWAKE WITH EYES OPEN, ASSESSMENT COMPLETED, TRACH PATENT TO VENT, INSPIRATORY WHEEZES NOTED,LEFTMIDLINE INTACT WITH IVF'S INFUSING, PEG INTACT WITH PULMOCARE @ 40 CC/HR, RIGHT CHEST TUBES X2 IN PLACE TO 30 CM SUCTION, BENJAMIN PATENT TO BSD, GAIL'S TO BILAT LOWER LEGS, BILAT SWR IN USE, VITALS STABLE
--- NOTE | 2019-08-28 21:30 | NUR ---
DRSG CHANGED TO RIGHT SIDE CHEST TUBES X2, LOOSE BM, CLEANED PER STAFF, VITALS STABLE
--- NOTE | 2019-08-28 23:23 | NUR ---
PT RESTING QUIETLY WITH EYES CLOSED, WILL CONT TO MONITOR
[2019-08-29] VITALS (24 sets, daily range): BP systolic 121–177; BP diastolic 56–93
--- NOTE | 2019-08-29 01:15 | NUR ---
PT SLEEPING WITH NO DISTRESS, VITALS STABLE
--- NOTE | 2019-08-29 06:15 | NUR ---
RESTING QUIETLY WITH EYES CLOSED, VITALS STABLE
[2019-08-29 06:32] LABS: APTT 29.1 SECONDS (22.8-39.4); INR 1.39 (0.85-1.17); PROTIME 16.9 SECONDS (11.6-15.0)
[2019-08-29 10:45] LABS: CALC OSMOLALITY 316 mosm/kg (275-300); CALCIUM 7.8 mg/dL (8.5-10.1); CARBON DIOXIDE 33.4 mmol/L (21.0-32.0); CHLORIDE - SERUM 114 mmol/L (98-107); GLUCOSE 166 mg/dL (74-106); POTASSIUM - SERUM 4.6 mmol/L (3.5-5.1); SODIUM 151 mmol/L (136-145); UREA NITROGEN 48 mg/dL (7-18)
[2019-08-29 10:46] LABS: CREATININE - SERUM 0.5 mg/dL (0.6-1.3); eGFR NON AFRICAN AMERICAN > 90 mL/min (90-120)
[2019-08-29 13:44] LABS: HEMATOCRIT 26.5 % (36.0-48.0); HEMOGLOBIN 8.1 g/dL (12-16); MCH 28.9 pg (26.0-34.0); MCHC 30.6 g/dL (31.0-37.0); MEAN PLATELET VOLUME 10.4 fL (7.4-10.4); PLATELET COUNT 98 10x3/uL (130-400); RDW 17.8 % (11.5-14.5)
[2019-08-29 13:53] LABS: MCV 94.6 fL (80.0-100.0); WBC 1.7 10x3/uL (4.8-10.8)
[2019-08-29 14:13] LABS: EOSINOPHILS 2 % (0-7); LYMPHOCYTES 2 % (15-50); MONOCYTES 6 % (2-11); NEUTROPHILS 34 % (40-80); PLATELET ESTIMATE DECREASED
[2019-08-29 18:06] LABS: HEMATOCRIT 24.9 % (36.0-48.0); HEMOGLOBIN 7.7 g/dL (12-16)
--- NOTE | 2019-08-29 19:00 | NUR ---
REPORT RECEIVED. RECEIVED PATIENT IN BED, SEDATED. ROUSES TO VERBAL STIMULI AND FOLLOWS SIMPLE COMMANDS. TRACH INTACT/SECURE/PATENT AND CONNECTED TO MECHANICAL VENT AT ORDERED SETTINGS. MONITORS CONNCETED TO PATIENT WITH ALARMS SET. VSS
--- NOTE | 2019-08-29 21:00 | NUR ---
RESTING WITH EYES CLOSED, ROUSES TO VERBAL STIMULI. VSS. TRACH INTACT/SECURE/PATENT CONNECTED TO VENT AT ORDERED SETTINGS. NO DISTRESS OBSERVED. IST UNIT PRBC COMPLETED, IV LASIX ADMIN PER PRN ORDER. GRAHAM WELL
--- NOTE | 2019-08-29 21:00 | NUR ---
RESTING WITH EYES CLOSED, ROUSED EASILY TO VERBAL STIMULI. 2ND UNIT OF PRBC INFUSING. TOLERATING WELL. VSS
--- NOTE | 2019-08-29 23:00 | NUR ---
REASSESSMENT COMPLETED PER FLOW SHEET WITH NO ACUTE DISTRESS OBSERVED. PATIENT HAD LARGE INCONT LIQUID BROWN STOOL. KUSH CARE GIVEN/LINENS CHANGED. VSS
[2019-08-30] VITALS (23 sets, daily range): BP systolic 121–169; BP diastolic 65–88
[2019-08-30 02:24] LABS: BASOPHILS 0 % (0-2); EOSINOPHILS 0.7 % (0-7); IMMATURE GRANULOCYTES 0.7 % (0-5); LYMPHOCYTES 11.8 % (15-50); MCHC 32.7 g/dL (31.0-37.0); MEAN PLATELET VOLUME 10.3 fL (7.4-10.4); MONOCYTES 3.7 % (2-11); NEUTROPHILS 83.1 % (40-80); PLATELET COUNT 80 10x3/uL (130-400); RBC 3.27 10x6/uL (4.00-5.40); RDW 16.1 % (11.5-14.5)
[2019-08-30 02:27] LABS: HEMOGLOBIN 9.8 g/dL (12-16); MCV 91.7 fL (80.0-100.0)
[2019-08-30 02:28] LABS: WBC 1.4 10x3/uL (4.8-10.8)
--- NOTE | 2019-08-30 03:00 | NUR ---
REASSESSMENT COMPLETED PER FLOW SHEET WITH NO ACUTE DISTRESS OBSERVED. VSS
[2019-08-30 03:22] LABS: ALBUMIN 3.3 g/dL (3.4-5.0); ALKALINE PHOSPHATASE 47 U/L (46-116); ALT (SGPT) 39 U/L (10-68); BILIRUBIN - TOTAL 1.49 mg/dL (0.2-1.3); CALC OSMOLALITY 319 mosm/kg (275-300); CALCIUM 7.9 mg/dL (8.5-10.1); CARBON DIOXIDE 30.9 mmol/L (21.0-32.0); CHLORIDE - SERUM 115 mmol/L (98-107); CREATININE - SERUM 0.6 mg/dL (0.6-1.3); GLUCOSE 167 mg/dL (74-106); POTASSIUM - SERUM 2.8 mmol/L (3.5-5.1); PROTEIN - SERUM 5.6 g/dL (6.4-8.2); SODIUM 154 mmol/L (136-145); UREA NITROGEN 42 mg/dL (7-18); eGFR NON AFRICAN AMERICAN > 90 mL/min (90-120)
--- NOTE | 2019-08-30 09:44 | NUR ---
0700 PT RECIEVED, SEE SHIFT HILARY, BM NOTED, LINENS CHANGED AND BATH DONE 0800 FAMILY HERE FOR VISITATION
[2019-08-30 10:27] LABS: CALC OSMOLALITY 314 mosm/kg (275-300); CHLORIDE - SERUM 114 mmol/L (98-107); CREATININE - SERUM 0.7 mg/dL (0.6-1.3); GLUCOSE 190 mg/dL (74-106); POTASSIUM - SERUM 3.8 mmol/L (3.5-5.1); SODIUM 151 mmol/L (136-145); UREA NITROGEN 41 mg/dL (7-18); eGFR NON AFRICAN AMERICAN 87 mL/min (90-120)
--- NOTE | 2019-08-30 11:31 | NUR ---
1100 CALLED AND SPOKE WITH PHARMACY ABOUT NEEDING IV FLUIDS.
--- NOTE | 2019-08-30 12:53 | NUR ---
Nutrition Follow-up: Tolerating TF; no flushes per Dr. Heath on 08/25. Diet: Pulmocare @ 40 Wt: 149.9# (08/29); 148.8# (08/27); 147# (07/26) Last BM: 08/30 Labs noted: Na 151, K+ 3.8, Glu 190, Ca 8.0 Meds noted: D5 1/2NS/KCl @ 75, Humalog, Alb - may consider small flushes via PEG if hypernatremia persists. -Monitor wt. -RD following.
--- NOTE | 2019-08-30 15:16 | NUR ---
CT DRESSINGS CHANGED
--- NOTE | 2019-08-30 17:53 | NUR ---
PT REPOSITONED THROUGHOUT DAY, ORAL CARE DONE, PT INTERMITTENLY ABLE TO FOLLOW COMMANDS, NODS HEAD YES AND NO. FAMILY HERE FOR VISITATIONS AND UPDATED
--- NOTE | 2019-08-30 19:00 | NUR ---
BEDSIDE REPORT AND SHIFT ASSESSMENT COMPLETE, SEE FLOWSHEET. PT SEDATED, OPENS EYES. R POSTERIOR AND R ANTERIOR CHEST TUBE IN PLACE TO 30 CM SUCTION, SEROUS DRAINAGE NOTED IN BOTH. PEG TUBE SITE WNL, PULMOCARE FEEDINGS AT 40 ML/HR NO WATER FLUSHES. BILAT UPPER ARM SWELLING. GAIL'S IN PLACE. L UPPER ARM MIDLINE CATHETER PATENT, SEE IV FLOWSHEET. WILL CONTINUE TO MONITOR.
--- NOTE | 2019-08-30 21:00 | NUR ---
1 LARGE LIQUID BM, PARTIAL LINEN CHANGE COMPLETE. MEDS GIVEN PER MAR. FAMILY AT BEDSIDE, UPDATE GIVEN.
--- NOTE | 2019-08-30 23:00 | NUR ---
REASSESSMENT COMPLETE, SEE FLOWSHEET.
--- NOTE | 2019-08-30 23:30 | NUR ---
LG LIQUID BM, PARTIAL LINEN CHANGE COMPLETE.
[2019-08-31] VITALS (26 sets, daily range): BP systolic 102–173; BP diastolic 51–88
--- NOTE | 2019-08-31 01:00 | NUR ---
MEDS GIVEN PER MAR. TUBE FEED BAG CHANGED AND FEEDS RESUMED. WILL MONITOR.
[2019-08-31 02:49] LABS: HEMATOCRIT 31.3 % (36.0-48.0); MCH 29.6 pg (26.0-34.0); MCHC 31.9 g/dL (31.0-37.0); MCV 92.6 fL (80.0-100.0); MEAN PLATELET VOLUME 10.3 fL (7.4-10.4); PLATELET COUNT 64 10x3/uL (130-400); RBC 3.38 10x6/uL (4.00-5.40); RDW 16.5 % (11.5-14.5)
--- NOTE | 2019-08-31 03:00 | NUR ---
REASSESSMENT COMPLETE, SEE FLOWSHEET.
[2019-08-31 03:03] LABS: CALC OSMOLALITY 314 mosm/kg (275-300); CALCIUM 8.1 mg/dL (8.5-10.1); CARBON DIOXIDE 29.2 mmol/L (21.0-32.0); CREATININE - SERUM 0.6 mg/dL (0.6-1.3); GLUCOSE 149 mg/dL (74-106); MAGNESIUM - SERUM 1.8 mg/dL (1.8-2.4); PHOSPHOROUS 1.8 mg/dL (2.5-4.9); POTASSIUM - SERUM 3.4 mmol/L (3.5-5.1); SODIUM 153 mmol/L (136-145); UREA NITROGEN 36 mg/dL (7-18); eGFR NON AFRICAN AMERICAN > 90 mL/min (90-120)
[2019-08-31 03:05] LABS: CHLORIDE - SERUM 117 mmol/L (98-107); WBC 1.2 10x3/uL (4.8-10.8)
[2019-08-31 03:58] LABS: LYMPHOCYTES 18 % (15-50); MONOCYTES 8 % (2-11); NEUTROPHILS 29 % (40-80); PLATELET ESTIMATE DECREASED
--- NOTE | 2019-08-31 05:00 | NUR ---
1 LG LIQUID BM, BATH AND LINEN CHANGE COMPLETE.
[2019-08-31 06:09] LABS: FUNGUS MYCOLOGY CULTURE Final report (())
--- NOTE | 2019-08-31 06:20 | NUR ---
LG LIQUID BM, PARTIAL LINEN CHANGE COMPLETE.
[2019-08-31 07:36] LABS: INR 1.5 (0.85-1.17)
[2019-08-31 08:34] LABS: ERYTHROCYTE SEDIMENTATION RATE 18 mm/hr (0-30)
--- NOTE | 2019-08-31 11:30 | NUR ---
PT IS HAVING FREQUENT SEYMOUR COLORED BM'S. FAMILY HAVE BEEN VISITING AT EACH VISITATION TIME. CT'S TO 30CM SUCTION SMALL LEAKS NOTED. SCANT AMOUT OF SEROUS OP. REQUIRES FREQUENT ORAL SUCTIONING. WEEPING EDEMA TO BIALTERAL ARMS. TURNED FREQUENTLY.
--- NOTE | 2019-08-31 19:00 | NUR ---
BEDSIDE REPORT AND SHIFT ASSESSMENT COMPLETE, SEE FLOWSHEET. VSS, NO SIGNS OF DISTRESS NOTED. PT SEDATED, FOLLOWS COMMANDS. R ANTERIOR AND R LATERAL CT TO 30 CM SUCTION, DRESSING CDI. L UPPER ARM MIDLINE PATENT, SEE IV FLOWSHEET. BILAT ARM SWELLING, WEEPING. WILL CPOC.
--- NOTE | 2019-08-31 20:00 | NUR ---
FOUND OPEN INCISION ON R UPPER BACK, DR NEWTON NOTIFIED. CULTURE COLLECTED AND SENT TO LAB.
--- NOTE | 2019-08-31 22:00 | NUR ---
1 LG LIQUID BM, BATH BENJAMIN CARE AND LINEN CHANGE COMPLETE. R UPPER BACK WOUND CLEANED AND DRESSED WITH OCCLUSIVE DRESSING. DR NEWTON REQUESTS THAT PT BE KEPT OFF WOUND, DONUT PLACED BEHIND PT BACK.
--- NOTE | 2019-08-31 23:00 | NUR ---
REASSESSMENT COMPLETE, SEE FLOWSHEET. PT SEDATED, OPENS EYES WILL NOT FOLLOW COMMANDS. VSS.
[2019-09-01] VITALS (37 sets, daily range): BP systolic 62–117; BP diastolic 38–64
--- NOTE | 2019-09-01 00:20 | NUR ---
R ANTERIOR AND R LATERAL CT DRESSINGS CHANGED, SITE WNL.
--- NOTE | 2019-09-01 01:00 | NUR ---
LG LIQUID BM, BATH AND PARTIAL LINEN CHANGE COMPLETE.
--- NOTE | 2019-09-01 03:00 | NUR ---
REASSESSMENT COMPLETE, SEE FLOWSHEET.
[2019-09-01 04:14] LABS: BASOPHILS 1.5 % (0-2); EOSINOPHILS 0 % (0-7); HEMATOCRIT 27.1 % (36.0-48.0); HEMOGLOBIN 8.6 g/dL (12-16); LYMPHOCYTES 17.9 % (15-50); MCH 29.6 pg (26.0-34.0); MCHC 31.7 g/dL (31.0-37.0); MCV 93.1 fL (80.0-100.0); MEAN PLATELET VOLUME 10.2 fL (7.4-10.4); MONOCYTES 37.3 % (2-11); NEUTROPHILS 43.3 % (40-80); RBC 2.91 10x6/uL (4.00-5.40); RDW 16.8 % (11.5-14.5)
[2019-09-01 04:19] LABS: PLATELET COUNT 40 10x3/uL (130-400); WBC 0.7 10x3/uL (4.8-10.8)
[2019-09-01 04:21] LABS: CALC OSMOLALITY 302 mosm/kg (275-300); CARBON DIOXIDE 23.2 mmol/L (21.0-32.0); CHLORIDE - SERUM 114 mmol/L (98-107); CREATININE - SERUM 0.7 mg/dL (0.6-1.3); GLUCOSE 144 mg/dL (74-106); SODIUM 146 mmol/L (136-145); UREA NITROGEN 38 mg/dL (7-18); eGFR NON AFRICAN AMERICAN 87 mL/min (90-120)
--- NOTE | 2019-09-01 04:25 | NUR ---
PT CONVERTED TO AFIB WITH RVR, RATE 180'S-200'S. DR NEWTON NOTIFIED. NEW ORDERS RECEIVED.
--- NOTE | 2019-09-01 04:40 | NUR ---
DR NEWTON NOTIFIED OF PT STATUS AND CRITICAL LABS, NEW ORDERS TO INCREASE CARDIZEM GTT TO 10ML/HR.
--- NOTE | 2019-09-01 08:00 | NUR ---
PT IN BED, ASSISTED OVERNIGHT NURSE WITH INFUSING 2U PRBC THROUGH MIDLINE. 22G PIV INSERTED TO RIGHT HAND X1 ATTEMPT, ALL IVF SWITCHED TO PIV DURING BLOOD INFUSION. ONCE BOTH UNITS OF PRBC WERE INFUSED, IVF SWITCHED BACK TO LEFT MIDLINE. BP STABLE AT THIS TIME. SIL MAXED OUT AT 0.9MCG/KG/MIN. FAMILY HERE AT BEDSIDE. WILL CONT TO FOLLOW POC
--- NOTE | 2019-09-01 08:31 | NUR ---
PT BP FLUCTUATING BETWEEN UPPER 70S SYSTOLIC TO 90S SYSTOLIC. HR 120-140S. FAMILY HAS SPOKEN WITH AND IS REQUESTING PT TO BE A DNR AND WANTS PT TO BE TERMINALLY EXTUBATED ONCE THE REST OF THE FAMILY HAS ARRIVED. NOTIFIED OF BP AND THE FAMILY'S WISHES FOR DNR. NO NEW ORDERS WERE RECIEVED FROM . 'S WHIZZER HAND HERE AND SPOKE WITH FAMILY. FAMILY STATES IF PT BP BEGINS TO DROP BEFORE THE REST OF THE FAMILY ARRIVES THEY DO NOT WANT ANY EXTRA MEDICATIONS ADDED TO INCREASE BP. WILL CONT TO FOLLOW POC
--- NOTE | 2019-09-01 10:14 | NUR ---
STILL WAITING ON TO TALK WITH FAMILY AT THIS TIME, FAMILY IS AT BEDSIDE, VITALS STABLE AT THIS TIME. NO SIGNS OF DISTRESS NOTED. WILL CONT TO FOLLOW POC
--- NOTE | 2019-09-01 11:45 | NUR ---
HERE AND SPOKE WITH FAMILY. FAMILY AND AGREE TO TERMINALLY EXTUBATE PT. WILL CONT TO FOLLOW POC
--- NOTE | 2019-09-01 12:32 | NUR ---
FENTANYL SQE INFUSION STARTED. FAMILY AT BEDSIDE, WILL CONT TO FOLLOW POC
--- NOTE | 2019-09-01 12:52 | NUR ---
VENT STOPPED, PT PLACE ON TRACH COLLAR. FENTANYL CURRENTLY INFUSING.
--- NOTE | 2019-09-01 14:05 | NUR ---
TOD 1326 PRONOUNCED BY . PT BATHED. CALLING MATILDA NOW.
--- NOTE | 2019-09-01 14:06 | NUR ---
Nutrition Follow-up: Noted plans for withdrawal of support. Wt: 156# (09/01); 149.9# (08/29) Last BM: 09/01 Labs noted: Na 146, K+ 3.0, Glu 144, Ca 8.0 Meds noted: D5W @ 75 -RD following.
--- NOTE | 2019-09-01 14:16 | NUR ---
GREY REF NUMBER:[id number]. PT IS NOT A CANDIDATE. NOTIFIED KENT HOUSTON.
--- NOTE | 2019-09-01 15:03 | NUR ---
PT LEFT WITH HOME
--- NOTE | 2019-09-01 15:55 | MORECARE ---
CASE MANAGEMENT DISCHARGE SUMMARY PATIENT: ALESHIA MADRIGAL UNIT: [id number] ADM DATE: 07/26/19 AGE: 74 : 47 SEX: F ROOM/BED: [facility] AUTHOR: HOLLIE,DOC PHYSICIAN: REFERRING PHYSICIAN: CHELSEA HEATH MD DATE OF SERVICE: 09/01/19 Discharge Plan Patient Name: ALESHIA MADRIGAL Facility: [facility]:[place] : 1945 Planned Disposition: Home Anticipated Discharge Date: Discharge Date: 09/01/2019 Expected LOS: Initial Reviewer: [email or web address] Initial Review Date: 07/26/2019 Generated: 09/01/19 4:54 pm Comments DCP- Discharge Planning Updated by [email or web address]: Bety Bell on 09/01/19 2:[address] FAMILY HAS MADE DECISION TO WITHDRAW CARE. COMFORT MEASURES ONLY DCP- Discharge Planning Updated by [email or web address]: Shavon Vyas on 08/27/19 11:[address] CM spoke with Dr. Heath about anticipation of DCP needs. Dr. Heath anticipates that once air leaks are resolved (chest tubes x2) patient will likely be ready for rehab. CM will continue to follow and assist as needed. DCP- Discharge Planning Updated by [email or web address]: Bety Bell on 08/26/19 8:[address] CM to discuss with Dr. Heath if patient is LTACH appropriate or stable enough for transport to LTACH facility. CM will continue to follow and assist as needed with discharge planning / needs DCP- Discharge Planning Updated by [email or web address]: Bety Bell on 07/28/19 3:[address] Late Entry 07/27/19 Patient Name: ALESHIA MADRIGAL Admission Status: Elective Accout number: [id number] Admission Date: 07-26-2019 : 1945 Admission Diagnosis:MALIGNANT NEOPLASM OF UPPER LOBE, RIGHT BRONCHUS OR BUD Attending: CHELSEA HEATH Current LOS: 2 Anticipated DC Date: Planned Disposition: Home Primary Insurance: MEDICARE A & B Discharge Planning Comments: CM met with patient to complete initial dc planning assessment. CM educated patient on the CM role and verbal consent given by patient to complete assessment. Patient lives at home alone where she is independent with her care. At discharge patient plans to return home and feels this is a safe discharge. CM discussed availability of home health, rehab services, and medical equipment. Her family will drive her home upon discharge. Patient may need walk test if still requiring 02 @ discharge. Patient denied known discharge needs at this time. CM will continue to follow and will assist as needed with dc plans/needs. Pharmacy Associate: Bety Bell DCPIA - Discharge Planning Initial Assessment Updated by [email or web address]: Bety Bell on 07/28/19 4:15 pm * Is the patient Alert and Oriented? Yes * How many steps to enter\exit or inside your home? * PCP Lei - @ [facility] * Pharmacy [facility] * Preadmission Environment Home Alone * ADLs Independent * Equipment None * List name and contact numbers for known caregivers / representatives who currently or will assist patient after discharge: NYLA PUENTES - [phone] * Verbal permission to speak to the caregivers and representatives has been obtained from the patient. Yes * Community resources currently utilized None * Additional services required to return to the preadmission environment? No * Can the patient safely return to the preadmission environment? Yes * Has this patient been hospitalized within the prior 30 days at any hospital? No Last DP export: 08/27/19 11:23 a Patient Name: ALESHIA MADRIGAL Page 18764 at 1553 All edits/amendments must be made on the electronic document DICTATION DATE: 09/01/19 155 MANAGER BUILDING: KEVIN 09/01/19 1554 RPT#: [id number] DC DATE:09/01/19 STATUS: DIS IN [facility] [address] [place] [address] END OF REPORT
--- NOTE | 2019-09-03 17:08 | NUR ---
Per CMS protocol, restraint report logged into data base.
== END 2019-09-01 15:03 | DRG 3 ==
LOC: D.SDCHOLD 07-26 05:00 → D.CVICU 07-26 05:00 → D.SDCHOLD 07-26 07:30 → D.CVICU 07-26 09:22
PROVIDERS: General Practice; Internal Medicine Hematology & Oncology; Internal Medicine Pulmonary Disease; Surgery; Thoracic Surgery (Cardiothoracic Vascular Surgery); ADMIT Internal Medicine Cardiovascular Disease; ATTEND Internal Medicine Cardiovascular Disease
PROC: 07T70ZZ Resection of Thorax Lymphatic, Open Approach (ICD-10-PCS; 2019-07-26)
PROC: 005 Central Nervous System and Cranial Nerves, Destruction (ICD-10-PCS; 2019-07-26)
PROC: 0BTC0ZZ Resection of Right Upper Lung Lobe, Open Approach (ICD-10-PCS; principal; 2019-07-26 07:30)
PROC: 5A1955Z Respiratory Ventilation, Greater than 96 Consecutive Hours (ICD-10-PCS; 2019-07-29)
PROC: 0BH17EZ Insertion of Endotracheal Airway into Trachea, Via Natural or Artificial Opening (ICD-10-PCS; 2019-07-29)
PROC: 0B9B8ZZ Drainage of Left Lower Lobe Bronchus, Via Natural or Artificial Opening Endoscopic (ICD-10-PCS; 2019-07-30)
PROC: 0B978ZZ Drainage of Left Main Bronchus, Via Natural or Artificial Opening Endoscopic (ICD-10-PCS; 2019-07-30)
PROC: 05HY33Z Insertion of Infusion Device into Upper Vein, Percutaneous Approach (ICD-10-PCS; 2019-08-02)
PROC: 0B9J8ZX Drainage of Left Lower Lung Lobe, Via Natural or Artificial Opening Endoscopic, Diagnostic (ICD-10-PCS; 2019-08-03)
PROC: 5A1955Z Respiratory Ventilation, Greater than 96 Consecutive Hours (ICD-10-PCS; 2019-08-03)
PROC: 0BH17EZ Insertion of Endotracheal Airway into Trachea, Via Natural or Artificial Opening (ICD-10-PCS; 2019-08-03)
PROC: 0B978ZZ Drainage of Left Main Bronchus, Via Natural or Artificial Opening Endoscopic (ICD-10-PCS; 2019-08-09)
PROC: 0B938ZZ Drainage of Right Main Bronchus, Via Natural or Artificial Opening Endoscopic (ICD-10-PCS; 2019-08-09)
PROC: 0W9930Z Drainage of Right Pleural Cavity with Drainage Device, Percutaneous Approach (ICD-10-PCS; 2019-08-11)
PROC: 0W29X0Z Change Drainage Device in Right Pleural Cavity, External Approach (ICD-10-PCS; 2019-08-18)
PROC: 0DH63UZ Insertion of Feeding Device into Stomach, Percutaneous Approach (ICD-10-PCS; 2019-08-19)
PROC: 0B113F4 Bypass Trachea to Cutaneous with Tracheostomy Device, Percutaneous Approach (ICD-10-PCS; 2019-08-19 10:30)
PROC: 05HY33Z Insertion of Infusion Device into Upper Vein, Percutaneous Approach (ICD-10-PCS; 2019-08-20)
DX: C34.11 Malignant neoplasm of upper lobe, right bronchus or lung (principal); J95.821 Acute postprocedural respiratory failure; J15.0 Pneumonia due to Klebsiella pneumoniae; K29.01 Acute gastritis with bleeding; D65 Disseminated intravascular coagulation [defibrination syndrome]; R40.2114 Coma scale, eyes open, never, 24 hours or more after hospital admission; R40.2314 Coma scale, best motor response, none, 24 hours or more after hospital admission; R40.2214 Coma scale, best verbal response, none, 24 hours or more after hospital admission; J95.812 Postprocedural air leak; T17.590A Other foreign object in bronchus causing asphyxiation, initial encounter; J44.1 Chronic obstructive pulmonary disease with (acute) exacerbation; I82.621 Acute embolism and thrombosis of deep veins of right upper extremity; D61.818 Other pancytopenia; J98.11 Atelectasis; I48.0 Paroxysmal atrial fibrillation; K21.9 Gastro-esophageal reflux disease without esophagitis; M81.0 Age-related osteoporosis without current pathological fracture; Z79.01 Long term (current) use of anticoagulants; I10 Essential (primary) hypertension; H35.30 Unspecified macular degeneration; D64.9 Anemia, unspecified; E83.42 Hypomagnesemia